=== PATIENT | male | born 1930 | race Caucasian/White ===

== ENCOUNTER 2017-07-14 06:58 | Inpatient (IN) | payer MEDICARE, OTHER ==
[~2017-07-14] VITALS: Ht 172.7 cm; Wt 67.9 kg
[~2017-07-14 06:58] MED LIST: AMLO-147 PO; CHOL2000 PO; CYAN50002 SL; FEBU80TA PO; LOSA25TA2 PO; METO-448 PO; TIMO10DR7 BOTH EYES
[2017-07-14] MEDS ORDERED: SOD CHLORIDE 0.9% 500 ML IV STA (07:22)
--- NOTE | 2017-07-14 07:29 | ERA ---
ER Documentation Chief Complaint Date/Time DATE: 07/14/17 TIME: 07:26 Chief Complaint gen weakness for the past 2 wks. recent falls with no obvious trauma. HPI Patient is an 87-year-old male who presents to the ER with gradual onset, constant, progressive generalized weakness and loss of balance for 3 weeks. He states that he has had difficulty walking due to loss of balance and has had multiple falls. He reports having a fall with occipital scalp injury 1 week ago. He denies neck pain, headache, vomiting. He denies leg weakness or incontinence. He denies fever or vomiting. He denies chest pain or shortness of breath. He denies dark stools. He reports eating and sleeping well, but reports depressed mood associated with decreased mobility. History is somewhat limited due to patient being a poor historian. Review of the medical record shows that the patient was admitted 2 years ago for similar symptoms in the setting of urinary tract infection. ROS All systems reviewed and are negative except as per history of present illness. Medications Home Meds Reported Medications Latanoprost (Latanoprost) 2.5 Ml Drops, 1 DROP BOTH EYES QHS, #1 BOTTLE 07/14/17 Brimonidine Tartrate* (Brimonidine Tartrate*) 0.2%-15ML Drop Opht, 1 DROP BOTH EYES Q8, #1 EA 07/14/17 Losartan Potassium* (Losartan Potassium*) 100 Mg Tablet, 100 MG PO DAILY, TAB 07/14/17 Cyanocobalamin* (Vitamin B12*) 500 Mcg Tab, 1000 MCG PO DAILY, TAB 07/14/17 Metoprolol Tartrate* (Lopressor*) 25 Mg Tab, 25 MG PO BID, #60 TAB 07/14/17 Amlodipine Besylate* (Amlodipine Besylate*) 10 Mg Tablet, 10 MG PO DAILY, #30 TAB 07/14/17 Febuxostat* (Uloric*) 80 Mg Tablet, 80 MG PO DAILY, TAB 07/14/17 Discontinued Reported Medications Bimatoprost* (Lumigan*) 0.01%-2.5 Ml Opht Drops, 1 DROP BOTH EYES HS, EA 07/14/17 Timolol Maleate* (Timolol Maleate* Ophth) 0.25%-15ml Opht, 1 DROP BOTH EYES BID , #1 EA 07/14/17 Aspirin* (Aspirin* Chew) 81 Mg Tab.chew, 81 MG PO DAILY, TAB.CHEW 07/14/17 Ezetimibe* (Zetia*) 10 Mg Tablet, 10 MG PO HS, TAB 07/14/17 Rosuvastatin Calcium* (Crestor*) 40 Mg Tablet, 40 MG PO QHS, #30 TAB 07/14/17 Lisinopril* (Lisinopril*) 40 Mg Tablet, 40 MG PO DAILY, #30 TAB 07/14/17 Timolol Maleate* (Timoptic*) 0.5%- 5ml Opht, 1 DROP BOTH EYES BID, EA 06/27/15 Cholecalciferol* (Vitamin D3*) 2,000 Unit Cap, 2000 UNIT PO DAILY, CAP 06/27/15 Cyanocobalamin* (Vitamin B-12* SL) 5,000 Mcg Tab.subl, 5000 MCG SL DAILY, TAB 06/27/15 Losartan Potassium* (Cozaar*) 25 Mg Tablet, PO DAILY, TAB 06/27/15 Metoprolol Tartrate* (Lopressor*) 25 Mg Tab, 25 MG PO DAILY, TAB 06/27/15 Febuxostat* (Uloric*) 80 Mg Tablet, 80 MG PO DAILY 11/05/11 Amlodipine Besylate* (Amlodipine Besylate*) 10 Mg Tablet, 10 MG PO DAILY 10/13/11 Allergies Allergies: Coded Allergies: No Known Allergy (Unverified , 06/27/15) PMhx/Soc Past medical history: Pancytopenia, 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), BPH, vitamin B12 deficiency Past surgical history: Left knee Social history: 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, no current use History of Surgery: Yes (L knee sx) Anesthesia Reaction: No Hx Neurological Disorder: No Hx Respiratory Disorders: No Hx Cardiac Disorders: Yes (HTN.) Hx Psychiatric Problems: No Hx Miscellaneous Medical Probl: Yes (HTN, gout, polyneuropathy, B12 deficiency , R eye retinal detachment) Hx Alcohol Use: Yes Hx Substance Use: No Hx Tobacco Use: Yes FmHx Noncontributory Physical Exam Vitals Vital Signs Date Time Temp Pulse Resp B/P Pulse Ox O2 Delivery O2 Flow Rate FiO2 07/14/17 10:08 113 18 116/67 99 Room Air 07/14/17 07:06 98.2 95 18 126/62 96 Physical Exam Const: Alert, no acute distress Head: Atraumatic Eyes: Normal Conjunctiva, Mild pallor, no icterus ENT: Normal External Ears, Nose and Mouth. Mucous membranes moist Neck: Full range of motion..~ No meningismus. No pain with range of motion Resp: Clear to auscultation bilaterally, No wheezes, no rales Cardio: Tachycardia, regular rhythm, no murmurs Abd: Soft, non tender, non distended. Skin: No petechiae or rashes Back: No midline or flank tenderness Ext: No cyanosis, or edema Neur: Awake and alert, Cranial nerves II through XII intact bilaterally, strength and sensation grossly intact in 4 extremities. No tremor, no asterixis. No nystagmus, no dysmetria. Psych: Normal Mood and Affect Result Diagram: 07/14/1771907/14/17719 Results 24 hrs Laboratory Tests Test 07/14/17 07:20 07/14/17 07:44 07/14/17 09:46 White Blood Count 2.710^3/ul Red Blood Count 1.9810^6/ul Hemoglobin 7.8g/dl Hematocrit 23.7% Mean Corpuscular Volume 119.7fl Mean Corpuscular Hemoglobin 39.4pg Mean Corpuscular Hemoglobin Concent 32.9g/dl Red Cell Distribution Width 17.4% Platelet Count 80047^3/UL Mean Platelet Volume 11.3fl Neutrophils % % Segmented Neutrophils % (Manual) 76% Lymphocytes % % Lymphocytes % (Manual) 16% Monocytes % % Monocytes % (Manual) 7% Eosinophils % % Eosinophils % (Manual) 1% Basophils % % Nucleated Red Blood Cells % 0.0/100WBC Neutrophils # 10^3/ul Absolute Lymphocytes (Manual) 0.410^3/ul Lymphocytes # 0.410^3/ul Monocytes # 0.210^3/ul Absolute Monocytes (Manual) 0.110^3/ul Eosinophils # 0.010^3/ul Basophils # 10^3/ul Nucleated Red Blood Cells # 10^3/ul Prothrombin Time 16.5Sec Prothrombin Time Ratio 1.3 INR International Normalized Ratio 1.32 Sodium Level 139mmol/L Potassium Level 4.2mmol/L Chloride Level 106mmol/L Carbon Dioxide Level 25mmol/L Anion Gap 12 Blood Urea Nitrogen 17mg/dl Creatinine 0.93mg/dl Glucose Level 124mg/dl Calcium Level 8.5mg/dl Total Bilirubin 0.9mg/dl Direct Bilirubin 0.00mg/dl Indirect Bilirubin 0.9mg/dl Aspartate Amino Transf (AST/SGOT) 34IU/L Alanine Aminotransferase (ALT/SGPT) 34IU/L Alkaline Phosphatase 90IU/L Troponin I 0.374ng/ml Total Protein 7.8g/dl Albumin 3.7g/dl Globulin 4.10g/dl Albumin/Globulin Ratio 0.90 Vitamin B12 Level 296pg/ml Urine Color YELLOW Urine Clarity SLIGHTLY CLOUDY Urine pH 5.0 Urine Specific [place] 1.020 Urine Ketones NEGATIVEmg/dL Urine Nitrite NEGATIVEmg/dL Urine Bilirubin NEGATIVEmg/dL Urine Urobilinogen 1+mg/dL Urine Leukocyte Esterase TRACELeu/ul Urine Microscopic RBC 7/HPF Urine Microscopic WBC 35/HPF Urine Mucus MODERATE/HPF Urine Hemoglobin NEGATIVEmg/dL Urine Glucose NEGATIVEmg/dL Urine Total Protein NEGATIVEmg/dl Lactic Acid Level 1.3mmol/L Current Medications Medications (Trade) Dose Ordered Sig/Isabella Route PRN Reason Start Time Stop Time Status Last Admin Dose Admin Sodium Chloride (NS) 500 ml @ 500 mls/hr Q1H STAT IV 07/14/17 07:22 07/14/17 08:21 DC 07/14/17 08:01 Diphtheria/ Tetanus/Acell Pertussis 0.5 ml 0.5 ml ONCE ONCE IM* 07/14/17 07:30 07/14/17 07:31 DC 07/14/17 08:02 Multivitamins/ Thiamine HCl/ Folic Acid/ Magnesium Sulfate/ Sodium Chloride (Mvi Adult/ Vitamin B1/Folic Acid/Magnesium Sulfate/NS) 1,015.2 ml @ 500 mls/ hr Q2H2M ONCE IV 07/14/17 07:30 07/14/17 09:31 DC 07/14/17 07:30 Aspirin 162 mg 162 mg ONCE ONCE PO 07/14/17 08:30 07/14/17 08:31 DC 07/14/17 08:30 Ceftriaxone Sodium 50 ml @ 100 mls/hr ONCE ONCE IVPB 07/14/17 09:30 07/14/17 09:59 DC 07/14/17 09:30 Sodium Chloride (NS) 250 ml @ 0 mls/hr Q0M ONCE IV 07/14/17 10:39 07/14/17 10:59 DC Ondansetron HCl (Zofran Inj) 4 mg ER BRIDGE PRN IV NAUSEA AND/OR VOMITING 07/14/17 11:00 07/15/17 10:59 Acetaminophen (Tylenol Tab) 650 mg ER BRIDGE PRN PO MILD PAIN/FEVER 07/14/17 11:00 07/15/17 10:59 Amlodipine Besylate (Norvasc) 10 mg DAILY PO 07/14/17 13:00 Brimonidine Tartrate (Alphagan 0.2%) 1 drop Q8 BOTH EYES 07/14/17 14:00 Cyanocobalamin (Vitamin B12) 1,000 mcg DAILY PO 07/15/17 09:00 Febuxostat (Uloric) 80 mg DAILY PO 07/14/17 13:00 Latanoprost (Xalatan) 1 drop QHS BOTH EYES 07/14/17 21:00 Losartan Potassium (Cozaar) 100 mg DAILY PO 07/14/17 13:00 Metoprolol Tartrate (Lopressor) 25 mg BID PO 07/14/17 13:00 Pregabalin (Lyrica) 50 mg BID PO 07/14/17 21:00 Lorazepam 0.25 mg 0.25 mg BID PRN PO ANXIETY 07/14/17 13:00 Sodium Chloride (NS) 1,000 ml @ 60 mls/hr [id number] IV 07/14/17 12:48 UNV IV Flush (NS 3 ml) 3 ml PER PROTOCOL IV 07/14/17 13:00 UNV Ondansetron HCl (Zofran Inj) 4 mg Q6H PRN IV NAUSEA AND/OR VOMITING 07/14/17 13:00 UNV Acetaminophen/ Hydrocodone Bitart ([place] (5/325)) 1 tab Q6H PRN PO MODERATE PAIN LEVEL 4-6 07/14/17 13:00 UNV Docusate Sodium (Colace) 100 mg Q12H PRN PO CONSTIPATION 07/14/17 13:00 UNV Zolpidem Tartrate (Ambien) 5 mg QHS PRN PO SLEEP 07/14/17 13:00 UNV Memantine (Namenda) 5 mg BID ONCE PO 07/14/17 21:00 07/14/17 21:01 UNV Procedures/MDM EKG read by me: Time 729, rate 113 Rhythm: Sinus tachycardia Clay: Normal Intervals: First-degree AV block ST-T waves: Biphasic T waves in inferior, anterior and lateral leads Ectopy: No Q-waves: No Impression: Sinus tachycardia with biphasic T waves are not clearly due to ischemia MDM: Patient is an 87-year-old male who presents to the ER with 3 weeks of generalized weakness associated with recent fall 1 week ago with minor head injury. Head CT is negative for intracranial bleed. Exam does not show obvious signs of other trauma. There is no cervical spine tenderness. Tetanus was updated. With regards to the patient's weakness, the patient has history of pancytopenia and has a slight drop in his hemoglobin from baseline despite being on Procrit. There is no report of dark or bloody stools. There is no reagan hypotension. The patient does have EKG changes that are suggestive of ischemia and has a slightly elevated troponin. Renal function is normal. The patient was given aspirin. He will be given a blood transfusion to improve coronary perfusion. He will be admitted for further cardiac workup. He was also found to have a urinary tract infection. There are no signs of sepsis. He was given a dose of antibiotics and IV fluids. Culture was sent. This was discussed with Dr. Avelar. Departure Diagnosis: Primary Impression: Generalized weakness Additional Impressions: Pancytopenia Non-ST elevation [place] (NSTEMI) Scalp abrasion Qualified Code: S00.01XA - Abrasion of scalp, initial encounter Urinary tract infection Qualified Code: N39.0 - Urinary tract infection without hematuria, site unspecified DEBORAH ZEPEDA MD Jul 14, 2017 07:29
[2017-07-14] MEDS ORDERED: DIPHTH/TET/ACEL PERTUSS (ADULT) 0.5 ML VIAL IM* ONE (07:30)
[2017-07-14] MEDS ORDERED: MULTIVITAMINS 10 ML, THIAMINE 100 MG, FOLIC ACID 1 MG, MAGNESIUM SULFATE 2 GM in SOD CH... IV ONE (07:30)
[2017-07-14 07:45] LABS: ABNORMAL IP MESSAGE 1; HEMATOCRIT 23.7 % (42.0-52.0); HEMOGLOBIN 7.8 g/dl (14.0-18.0); MEAN CORPUSCULAR HEMOGLOBIN 39.4 pg (29.0-33.0); MEAN CORPUSCULAR HGB CONC 32.9 g/dl (32.0-37.0); MEAN CORPUSCULAR VOLUME 119.7 fl (82.0-101.0); MEAN PLATELET VOLUME 11.3 fl (7.4-10.4); PLATELET COUNT 104 10^3/UL (140-415); POSITIVE DIFF @See below; RED BLOOD COUNT 1.98 10^6/ul (4.70-6.10); RED CELL DISTRIBUTION WIDTH 17.4 % (11.5-14.5); WHITE BLOOD COUNT 2.7 10^3/ul (4.8-10.8)
[2017-07-14 08:02] LABS: ALBUMIN 3.7 g/dl (3.3-4.9); ALBUMIN/GLOBULIN RATIO 0.9; BILIRUBIN,INDIRECT 0.9 mg/dl (0-1.1); BILIRUBIN,TOTAL 0.9 mg/dl (0.2-1.3); CALCIUM 8.5 mg/dl (8.4-10.2); CREATININE 0.93 mg/dl (0.61-1.24); POTASSIUM 4.2 mmol/L (3.5-5.1); TOTAL PROTEIN 7.8 g/dl (6.1-8.1)
[2017-07-14 08:17] LABS: TROPONIN-I 0.374 ng/ml (0.00-0.12)
--- NOTE | 2017-07-14 08:19 | RADRPT ---
PROCEDURE: CT Brain without contrast. CLINICAL INDICATION: Syncope. TECHNIQUE: A CT of the brain was performed on multidetector high-resolution CT scanner utilizing a xial sections from the skull base through the vertex without contrast. The scan was reviewed in sof t tissue brain and high frequency resolution bone algorithm windows. Images were reviewed on a high -resolution PACS workstation. One or more the following does reduction techniques were utilized: Aut omated exposure control, adjustment of the mA/ or kV according to patient's size, or use of iterativ e reconstruction technique. The exam CTDI = 44.11 mGy and the DLP = 720.23 mGy-cm. COMPARISON: Brain CT 06/30/2015. FINDINGS: There is moderate enlargement of ventricles which is disproportionate to mild sulcal enlargement wit hout significant interval change. This may represent central greater than peripheral volume loss ve rsus communicating hydrocephalus such as normal pressure hydrocephalus. There is no intracranial hem orrhage, mass effect or midline shift. No abnormal intra-axial or extra-axial fluid collections are seen. The blue/white matter differentiation is preserved. Partially empty sella is noted. There are moderate foci of hypoattenuation in the periventricular, deep, and subcortical white matte r, which are nonspecific in etiology but likely reflect chronic small vessel ischemic changes. Small lacunar infarcts are noted in bilateral hunt radiata, lentiform nuclei and right thalamus. There are moderate intracranial vascular calcifications consistent with atherosclerosis. The visualized pa ranasal sinuses are essentially clear. Right scleral buckling is noted likely related to prior retin al detachment treatment. Mild parietal scalp swelling is noted without underlying skull fracture. IMPRESSION: 1. No acute intracranial hemorrhage, transcortical infarction or mass effect. 2. Mild intracranial atherosclerosis and chronic small vessel ischemic changes. 3. 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 4. Partially empty sella. 5. Moderate ventriculomegaly which is disproportionate to mild sulcal enlargement without significa nt interval change. This may represent central greater than peripheral volume loss versus communica ting hydrocephalus such as normal pressure hydrocephalus. 6. Mild parietal scalp swelling is noted without underlying skull fracture. RPTAT: JJ .Thony Alvarado MD, MD Date Time Electronically viewed and signed by .Thony Alvarado MD, MD on 07/14/2017 08:18 .N/
[2017-07-14 08:21] LABS: INR 1.32; PROTIME 16.5 Sec (12.2-14.2); PT RATIO 1.3
--- NOTE | 2017-07-14 08:22 | RADRPT ---
PROCEDURE: XR Chest. CLINICAL INDICATION: 87-year-old male with syncope. TECHNIQUE: Single frontal view of the chest was obtained. COMPARISON: Chest x-ray 06/28/2015 12:01 p.m. FINDINGS: Monitoring electrodes project across the chest. There are degenerative osteophytes in the thoracic and upper lumbar spine. The left ventricle is mildly enlarged. The cardiomediastinal silhouette and hilar structures are normal. The pulmonary vasculature is normal. There is a left-sided aorta. The lungs are clear. The costophrenic angles are normal. IMPRESSION: 1. Atherosclerosis of the aortic arch. 2. Spondylosis of the thoracic spine. 3. Mild cardiomegaly. 4. Stable chest as compared to 06/28/2015 with no evidence of active cardiopulmonary disease. RPTAT:AAJJ Physician Shanti Date Time Electronically viewed and signed by Physician Shanti on 07/14/2017 08:21 BRAYDEN/
[2017-07-14] MEDS ORDERED: ASPIRIN 81 MG TAB PO ONE (08:30)
[2017-07-14 08:47] LABS: ADD UMIC YES; UR ASCORBIC ACID NEGATIVE (NEGATIVE); UR BILIRUBIN (Dip) NEGATIVE (NEGATIVE); UR BLOOD (Dip) NEGATIVE (NEGATIVE); UR CLARITY SLIGHTLY CLOUDY (CLEAR); UR COLOR YELLOW (YELLOW); UR GLUCOSE (Dip) NEGATIVE (NEGATIVE); UR KETONES (Dip) NEGATIVE (NEGATIVE); UR LEUKOCYTE ESTERASE (Dip) TRACE Leu/ul (NEGATIVE); UR MUCUS MODERATE /HPF (NONE SEEN); UR NITRITE (Dip) NEGATIVE (NEGATIVE); UR RBC 7 /HPF (0-5); UR TOTAL PROTEIN (Dip) NEGATIVE (NEGATIVE); UR UROBILINOGEN (Dip) 1+ mg/dL (NEGATIVE)
[2017-07-14] MEDS ORDERED: CEFTRIAXONE 1 GM/50 ML (PMX) 50 ML IVPB ONE (09:30)
[2017-07-14 09:58] LABS: EOSINOPHILS % (M) 1 % (0.0-7.0); LYMPHOCYTES # 0.4 10^3/ul (0.8-2.9); MONOCYTE # 0.2 10^3/ul (0.3-0.9); MONOCYTES % (M) 7 % (0-11)
[2017-07-14] MEDS ORDERED: SOD CHLORIDE 0.9% 250 ML IV ONE (10:39)
[2017-07-14] MEDS ORDERED: ONDANSETRON 4 MG INJ IV PRN ×2 (11:00→13:00)
[2017-07-14] MEDS ORDERED: ACETAMINOPHEN 325 MG TAB PO PRN (11:00)
[2017-07-14] MEDS ORDERED: ROSU40TA35 PO (11:43)
[2017-07-14] MEDS ORDERED: LISI40TA9 PO (11:43)
[2017-07-14] MEDS ORDERED: EZET10TA3 PO (11:43)
[2017-07-14] MEDS ORDERED: TIMO15DR15 BOTH EYES (11:44)
[2017-07-14] MEDS ORDERED: ASPI81TA3 PO (11:44)
[2017-07-14] MEDS ORDERED: BIMA2.5D BOTH EYES (11:45)
[2017-07-14] MEDS ORDERED: FEBU80TA PO (11:46)
[2017-07-14] MEDS ORDERED: METO-448 PO (11:47)
[2017-07-14] MEDS ORDERED: CYAN500T46 PO (11:47)
[2017-07-14] MEDS ORDERED: AMLO-147 PO (11:47)
[2017-07-14] MEDS ORDERED: LATA2.5D2 BOTH EYES (11:48)
[2017-07-14] MEDS ORDERED: BRIM15DR7 BOTH EYES (11:48)
[2017-07-14] MEDS ORDERED: LOSA100T7 PO (11:48)
[2017-07-14] MEDS: SOD CHLORIDE 0.9% 1,000 ML IV SCH ×2 (12:48→21:03)
--- NOTE | 2017-07-14 12:49 | RADRPT ---
PROCEDURE: XR Lumbar Spine. CLINICAL INDICATION: Status post fall. Back pain. TECHNIQUE: X-ray of the lumbar spine were performed including AP, lateral, and coned L5-S1 views w as performed. COMPARISON: No prior studies are available for comparison. FINDINGS: SEGMENTATION: There are 5 non-rib bearing lumbar vertebral bodies. LORDOSIS: Within normal limits. VERTEBRAL BODY HEIGHTS: There is an age indeterminate mild to moderate L1 vertebral body compression fracture. There is possible mild L2 vertebral body compression fracture which is also age indetermi ron. ALLIGNMENT: There is mild retrolisthesis of L3-L4. There is mild grade 1 anterolisthesis of 5 S1. DISCS: The discs are normal in height. OSSEOUS STRUCTURES: There is no destructive osseous lesion. There is moderate bilateral facet arthro phillip at L5-S1. SACRUM: The bilateral sacroiliac joints are intact. There are moderate aortic calcifications. IMPRESSION: Age indeterminate mild to moderate L1 and possible mild L2 vertebral body compression fractures. 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 Further findings as detailed above. RPTAT: PP .Natan Cassidy MD, Date Time Electronically viewed and signed by .Natan Cassidy MD, on 07/14/2017 12:49 .F/
[2017-07-14] MEDS ORDERED: ZOLPIDEM 5 MG TAB PO PRN (13:00)
[2017-07-14] MEDS ORDERED: LORAZEPAM 0.5 MG TAB PO PRN (13:00)
[2017-07-14] MEDS: LOSARTAN 50 MG TAB PO SCH (13:00)
[2017-07-14] MEDS ORDERED: AMLODIPINE 10 MG TAB PO SCH (13:00)
[2017-07-14] MEDS ORDERED: DOCUSATE SODIUM 100 MG CAP PO PRN (13:00)
[2017-07-14] MEDS: METOPROLOL 25 MG TAB PO SCH ×2 (13:00→21:01)
[2017-07-14] MEDS: FEBUXOSTAT 40 MG TABLET PO SCH (13:00)
[2017-07-14] MEDS ORDERED: NACL 0.9% 3 ML SYG IV SCH (13:00)
[2017-07-14] MEDS: BRIMONIDINE 0.2% 5 ML BTL BOTH EYES SCH ×2 (14:00→21:02)
--- NOTE | 2017-07-14 15:13 | HP ---
DATE OF ADMISSION: 07/14/2017 IDENTIFYING DATA: The patient is an 87-year-old male being admitted to the hospital after suffering a fall, now complaining of back pain and notable severe anemia. HISTORICAL EVENTS: The patient states it was yesterday morning when getting out of bed using his wa lker, he felt a bit unstable, lost his balance and fell, hitting his back and head. Importantly wit h his at bedside, she indicated as did he that he did not lose consciousness and no antecedent chest pain radiating neck, arm or jaw discomfort, cough, wheezing, vomiting, nausea, focal neurologi c signs prior to his fall. She was able to help him up and during the course of the day had increas ing back pain and noted some bleeding from his the scalp. Antecedent to this, his appetite has been reasonable. He has been generally weak, but this is not new over the last several months. There h as been no vomiting, diarrhea, he has been making less urine than normal per his without dysuri a, flank pain, fever or chills. PAST MEDICAL HISTORY: Includes gout, hyperlipidemia, hypertension, history of thrombocytopenia, roddy ropathy, a myeloproliferative disorder, having had prior vasectomy, mastoidectomy, left testicle res ected. FAMILY HISTORY: Positive for psychiatric illness. SOCIAL HISTORY: He is retired, former smoker. MEDICATIONS: 1. [place] 5/325 every 6 hours p.r.n. 2. Lorazepam 0.5 mg t.i.d. p.r.n. 3. Memantine 5 mg b.i.d. 4. Vitamin B12 1000 mcg per day. 5. Uloric 80 mg per day. 6. Tramadol 50 mg every 4 hours. 7. Lyrica 50 mg b.i.d. 8. Amlodipine 10 mg per day. 9. Aleve p.r.n. 10. Losartan 100. 11. Metoprolol 25. 12. Procrit 40,000 units 3 times per week. ALLERGIES: INCLUDE CELEBREX. PHYSICAL EXAMINATION: GENERAL: Elderly male, no acute distress. VITAL SIGNS: BP 120/82, pulse 70, heart rate was 96, respirations were 18, he was afebrile/ EYES: Extraocular muscles were full. NOSE, MOUTH AND THROAT: Normal. NECK: Supple without jugular venous distention, thyroid enlargement or adenopathy. LUNGS: Clear. HEART: Rhythm regular. Heart tones diminished. No murmur. No third or fourth sound. ABDOMEN: Nontender. The liver and spleen were not palpable. No masses or tenderness were noted. EXTREMITIES: No edema. Calves nontender. Peripheral pulses reduced. NEUROLOGIC: No lateralizing motor weakness. Oriented to person, place and time. SKIN: Exam revealed an abrasion involving the scalp. IMPRESSION: 1. Fall that seems mechanical. CAT scan is pending. 2. Low back pain, need to be sure there is not a traumatic related fracture. 3. Anemia. Will require transfusion of packed cells and follow up with hematology. 4. Labs revealed a slightly elevated troponin and mild ST changes. Cardiology to see. PLAN: Admit, including the above, will need monitored floor and PT, OT evaluation. Dictated By: CHERRY PEDROZA/EARNESTINE Conf#: [id number] DID#: [id number]
[2017-07-14 16:11] VITALS: TEMP 98
[2017-07-14 16:40] VITALS: PULSE 82
--- NOTE | 2017-07-14 17:00 | CONS ---
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 He has not had a recent bone marrow biopsy. Procrit trial is in progress and Hgb had risen from about 7 1/2 to 8.9 at his last office visit reflecting six weeks of Procrit. I agree with transfusion and would also continue EPO treatment. 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 He had previously declined bone marrow but since he is here now, perhaps he will accept a biopsy by Radiology since they can sedate him. It would be helpful to confirm the diagnosis is correct and that we are not missing an occult lymphoma or the like. I agree with plans to reduce the number of medications, especially antihypertensives since he is unsteady. I will continue to encourage nutrition and later more activity. Consultation Date/Type/Reason Admit Date/Time Jul 14, 2017 at 10:41 Date of Consultation: Jul 14, 2017 Type of Consultation: Hematology Reason for Consultation anemia Referring Provider: CHERRY GRIMM MD Hx of Present Illness 87 yo man known to me as an outpatient. 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 This year he had pancytopenia with normal B12 and folate, borderline iron and a low EPO assay. Atrial of iron was unsuccessful and he is now getting Procrit trial with slight rise of 1 gm/dl noted over a six week period. 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 Today he was admitted via the ER after falling at home. Note that Dr. Moreno had been reducing the amount of antihypertensives that he took. Pt has also been encouraged to eat better but family says that he eats poorly and is extremely inactive. The fall at home was likely due to slipping and pt denies LOC, chest pain or palpitations. Past Medical History Medical History: high cholesterol, hypertension, other (gout, malnutrition, neuropathy) Past Surgical History Past Surgical Hx: other (orchiectomy) Social History Smoking Status: Former smoker Exam/Review of Systems Vital Signs Vitals Vital Signs Date Time Temp Pulse Resp B/P Pulse Ox O2 Delivery O2 Flow Rate FiO2 07/14/17 16:40 82 07/14/17 16:11 98.0 16 124/60 99 Room Air Exam Constitutional: alert Head: lacerations (small laceration at posterior skull), normocephalic Eyes: nl conjunctiva, other (pallor) Neck: non-tender, supple Respiratory: clear to auscultation Cardiovascular: regular rate and rhythm Gastrointestinal: nl liver, spleen, soft Extremities: other (decreased muscle mass) Neurological: other (awake and conversant but poor memory unchanged from prior exams) Results Result Diagram: 07/14/1720 07/14/17 0720 Results 24 hrs Laboratory Tests Test 07/14/17 07:20 07/14/17 07:44 07/14/17 09:46 07/14/17 13:00 White Blood Count 2.7 #L Red Blood Count 1.98 L Hemoglobin 7.8 L Hematocrit 23.7 L Mean Corpuscular Volume 119.7 H Mean Corpuscular Hemoglobin 39.4 H Mean Corpuscular Hemoglobin Concent 32.9 Red Cell Distribution Width 17.4 H Platelet Count 104 L Mean Platelet Volume 11.3 #H Neutrophils % Segmented Neutrophils % (Manual) 76 Lymphocytes % Lymphocytes % (Manual) 16 Monocytes % Monocytes % (Manual) 7 Eosinophils % Eosinophils % (Manual) 1 Basophils % Nucleated Red Blood Cells % 0.0 Neutrophils # Absolute Lymphocytes (Manual) 0.4 L Lymphocytes # 0.4 L Monocytes # 0.2 L Absolute Monocytes (Manual) 0.1 L Eosinophils # 0.0 Basophils # Nucleated Red Blood Cells # Prothrombin Time 16.5 H Prothrombin Time Ratio 1.3 INR International Normalized Ratio 1.32 Sodium Level 139 Potassium Level 4.2 Chloride Level 106 Carbon Dioxide Level 25 Anion Gap 12 Blood Urea Nitrogen 17 Creatinine 0.93 Glucose Level 124 Calcium Level 8.5 Total Bilirubin 0.9 Direct Bilirubin 0.00 Indirect Bilirubin 0.9 Aspartate Amino Transf (AST/SGOT) 34 Alanine Aminotransferase (ALT/SGPT) 34 Alkaline Phosphatase 90 Troponin I 0.374 *H 0.358 *H Total Protein 7.8 Albumin 3.7 Globulin 4.10 H Albumin/Globulin Ratio 0.90 Vitamin B12 Level 296 Urine Color YELLOW Urine Clarity SLIGHTLY CLOUDY A Urine pH 5.0 Urine Specific [place] 1.020 Urine Ketones NEGATIVE Urine Nitrite NEGATIVE Urine Bilirubin NEGATIVE Urine Urobilinogen 1+ H Urine Leukocyte Esterase TRACE A Urine Microscopic RBC 7 H Urine Microscopic WBC 35 H Urine Mucus MODERATE Urine Hemoglobin NEGATIVE Urine Glucose NEGATIVE Urine Total Protein NEGATIVE Lactic Acid Level 1.3 Medications Medications Current Medications Amlodipine Besylate (Norvasc) 10 mg DAILY PO ; Start 07/14/17 at 13:00 Brimonidine Tartrate (Alphagan 0.2%) 1 drop Q8 BOTH EYES Last administered on 07/14/17 14:00; Admin Dose 1 DROP; Start 07/14/17 at 14:00 Cyanocobalamin (Vitamin B12) 1,000 mcg DAILY PO ; Start 07/15/17 at 09:00 Febuxostat (Uloric) 80 mg DAILY PO Last administered on 07/14/17 13:00; Admin Dose 80 MG; Start 07/14/17 at 13:00 Latanoprost (Xalatan) 1 drop QHS BOTH EYES ; Start 07/14/17 at 21:00 Losartan Potassium (Cozaar) 100 mg DAILY PO ; Start 07/14/17 at 13:00 Metoprolol Tartrate (Lopressor) 25 mg BID PO ; Start 07/14/17 at 13:00 Pregabalin (Lyrica) 50 mg BID PO ; Start 07/14/17 at 21:00 Lorazepam 0.25 mg 0.25 mg BID PRN PO ANXIETY; Start 07/14/17 at 13:00 Sodium Chloride (NS) 1,000 ml @ 60 mls/hr [id number] IV ; Start 07/14/17 at 12:48 Ondansetron HCl (Zofran Inj) 4 mg Q6H PRN IV NAUSEA AND/OR VOMITING; Start 07/14/17 at 13:00 Acetaminophen/ Hydrocodone Bitart ([place] (5/325)) 1 tab Q6H PRN PO MODERATE PAIN LEVEL 4-6; Start 07/14/17 at 13:00 Docusate Sodium (Colace) 100 mg Q12H PRN PO CONSTIPATION; Start 07/14/17 at 13: 00 Zolpidem Tartrate (Ambien) 5 mg QHS PRN PO SLEEP; Start 07/14/17 at 13:00 Memantine (Namenda) 5 mg BID PO ; Start 07/14/17 at 21:00 CHERRY JANE MD Jul 14, 2017 17:00
[2017-07-14 17:02] VITALS: Ht 172.7 cm; Wt 67.9 kg
[2017-07-14 20:00] VITALS: BP 118/56; RESP 20
[2017-07-14 20:30] VITALS: PULSE 80
[2017-07-14] MEDS: PREGABALIN 50 MG CAP PO SCH (21:00)
[2017-07-14] MEDS: MEMANTINE 5 MG TAB PO SCH (21:00)
[2017-07-14] MEDS: LATANOPROST 0.005% 2.5 ML OPH BOTH EYES SCH (21:02)
[2017-07-14 23:53] VITALS: BP 121/62; RESP 20
[2017-07-15] VITALS (11 sets, daily range): BP systolic 103–132; BP diastolic 50–72; PULSE 64–110; RESP 17–20
[2017-07-15] MEDS: SOD CHLORIDE 0.9% 1,000 ML IV SCH ×2 (05:28→22:08)
[2017-07-15] MEDS: BRIMONIDINE 0.2% 5 ML BTL BOTH EYES SCH ×3 (05:28→21:26)
[2017-07-15 07:16] LABS: EOSINOPHILS # 0.1 10^3/ul (0.0-0.5); EOSINOPHILS % 2.4 % (0.0-7.0); HEMATOCRIT 24.5 % (42.0-52.0); HEMOGLOBIN 7.7 g/dl (14.0-18.0); LYMPHOCYTES # 0.7 10^3/ul (0.8-2.9); LYMPHOCYTES % 22.7 % (15.0-51.0); MEAN CORPUSCULAR HEMOGLOBIN 36.7 pg (29.0-33.0); MEAN CORPUSCULAR HGB CONC 31.4 g/dl (32.0-37.0); MEAN CORPUSCULAR VOLUME 116.7 fl (82.0-101.0); MEAN PLATELET VOLUME 11.7 fl (7.4-10.4); MONOCYTE # 0.2 10^3/ul (0.3-0.9); MONOCYTES % 7.9 % (0.0-11.0); NEUTROPHIL # 1.9 10^3/ul (1.6-7.5); NEUTROPHILS % 66.7 % (39.0-77.0); NUCLEATED RED BLOOD CELLS% 0.7 /100WBC (0.0-0.0); PLATELET COUNT 100 10^3/UL (140-415); POSITIVE DIFF @See below; RED CELL DISTRIBUTION WIDTH 21.5 % (11.5-14.5); WHITE BLOOD COUNT 2.9 10^3/ul (4.8-10.8)
[2017-07-15 07:39] LABS: IRON 43 ug/dl (35-150)
[2017-07-15 07:41] LABS: CALCIUM 7.6 mg/dl (8.4-10.2); CREATININE 0.96 mg/dl (0.61-1.24); MAGNESIUM 2.2 mg/dl (1.7-2.5); POTASSIUM 3.9 mmol/L (3.5-5.1)
[2017-07-15 07:50] LABS: TOTAL IRON BINDING CAPACITY 211 ug/dl (241-421)
[2017-07-15 08:10] LABS: THYROID STIMULATING HORMONE 1.47 MIU/L (0.465-4.680)
--- NOTE | 2017-07-15 08:32 | CONS ---
Date/Time of Note Date/Time of Note DATE: 07/15/17 TIME: 08:26 Assessment/Plan Assessment/Plan Chief Complaint/Hosp Course 1. fall and gait abnormality , start PT and consider Acute Rehab Unit . 2. Pancytopenia . Hematology w/u is in progress 3. hypertension , BP is low 4. dilated ventricles on CT scan , r/o Normal pressure hydrocephalus , will get neurology consult . 5. lumbar spine fractures , ? age , will order MRI . Problems: Consultation Date/Type/Reason Admit Date/Time Jul 14, 2017 at 10:41 Initial Consult Date 07/14/17 Type of Consultation: Hematology Referring Provider: CHERRY GRIMM MD 24 HR Interval Summary Free Text/Dictation He is awake and alert today . He was admitted yesterday after he fell at home . Exam/Review of Systems Vital Signs Vitals Vital Signs Date Time Temp Pulse Resp B/P Pulse Ox O2 Delivery O2 Flow Rate FiO2 07/15/17 08:10 97.9 104 17 103/61 92 07/14/17 16:11 Room Air Intake and Output 07/14/17 07/14/17 07/15/17 15:00 23:00 07:00 Intake Total 660 ml Balance 660 ml Exam Constitutional: alert, frail, oriented Head: normocephalic ENMT: nl external ears & nose, nl lips & teeth, nl nasal mucosa & septum Respiratory: clear to auscultation, normal air movement Cardiovascular: regular rate and rhythm Gastrointestinal: non-tender, soft Musculoskeletal: nl extremities to inspection Results Result Diagram: 07/15/17 0612 07/15/17 0612 Results 24 hrs Laboratory Tests Test 07/14/17 09:46 07/14/17 13:00 07/15/17 06:12 Lactic Acid Level 1.3 Troponin I 0.358 *H White Blood Count 2.9 L Red Blood Count 2.10 L Hemoglobin 7.7 L Hematocrit 24.5 L Mean Corpuscular Volume 116.7 H Mean Corpuscular Hemoglobin 36.7 H Mean Corpuscular Hemoglobin Concent 31.4 L Red Cell Distribution Width 21.5 #H Platelet Count 100 L Mean Platelet Volume 11.7 H Neutrophils % 66.7 Lymphocytes % 22.7 Monocytes % 7.9 Eosinophils % 2.4 Basophils % 0.0 Nucleated Red Blood Cells % 0.7 H Neutrophils # 1.9 Lymphocytes # 0.7 L Monocytes # 0.2 L Eosinophils # 0.1 Basophils # 0.0 Nucleated Red Blood Cells # 0.0 Sodium Level 141 Potassium Level 3.9 Chloride Level 111 H Carbon Dioxide Level 23 Anion Gap 11 Blood Urea Nitrogen 17 Creatinine 0.96 Glucose Level 75 # Calcium Level 7.6 L Phosphorus Level 3.0 Magnesium Level 2.2 Iron Level 43 Total Iron Binding Capacity 211 L Percent Iron Saturation 20 L Ferritin 926.0 H Thyroid Stimulating Hormone (TSH) 1.470 Medications Medications Current Medications Brimonidine Tartrate (Alphagan 0.2%) 1 drop Q8 BOTH EYES Last administered on 07/15/17 05:28; Admin Dose 1 DROP; Start 07/14/17 at 14:00 Cyanocobalamin (Vitamin B12) 1,000 mcg DAILY PO ; Start 07/15/17 at 09:00 Febuxostat (Uloric) 80 mg DAILY PO Last administered on 07/14/17 13:00; Admin Dose 80 MG; Start 07/14/17 at 13:00 Latanoprost (Xalatan) 1 drop QHS BOTH EYES Last administered on 07/14/17 21:02 ; Admin Dose 1 DROP; Start 07/14/17 at 21:00 Losartan Potassium (Cozaar) 100 mg DAILY PO ; Start 07/14/17 at 13:00 Metoprolol Tartrate (Lopressor) 25 mg BID PO Last administered on 07/14/17 21: 01; Admin Dose 25 MG; Start 07/14/17 at 13:00 Pregabalin (Lyrica) 50 mg BID PO Last administered on 07/14/17 21:00; Admin Dose 50 MG; Start 07/14/17 at 21:00 Lorazepam 0.25 mg 0.25 mg BID PRN PO ANXIETY; Start 07/14/17 at 13:00 Sodium Chloride (NS) 1,000 ml @ 60 mls/hr [id number] IV Last administered on 07/14 21:03; Admin Dose 60 MLS/HR; Start 07/14/17 at 12:48 Ondansetron HCl (Zofran Inj) 4 mg Q6H PRN IV NAUSEA AND/OR VOMITING; Start 07/14/17 at 13:00 Acetaminophen/ Hydrocodone Bitart ([place] (5/325)) 1 tab Q6H PRN PO MODERATE PAIN LEVEL 4-6; Start 07/14/17 at 13:00 Docusate Sodium (Colace) 100 mg Q12H PRN PO CONSTIPATION; Start 07/14/17 at 13: 00 Zolpidem Tartrate (Ambien) 5 mg QHS PRN PO SLEEP; Start 07/14/17 at 13:00 Memantine (Namenda) 5 mg BID PO Last administered on 07/14/17t 21:00; Admin Dose 5 MG; Start 07/14/17 at 21:00 Epoetin Rosendo (Epogen (Oncology)) 40,000 units ONCE SC ; Start 07/15/17 at 10:00 ; Stop 07/15/17 at 10:01 YANDY MCDERMOTT MD Jul 15, 2017 08:32
[2017-07-15] MEDS: MEMANTINE 5 MG TAB PO SCH ×2 (08:53→21:25)
[2017-07-15] MEDS: PREGABALIN 50 MG CAP PO SCH ×2 (08:53→21:25)
[2017-07-15] MEDS: FEBUXOSTAT 40 MG TABLET PO SCH (08:53)
[2017-07-15] MEDS: CYANOCOBALAMIN 500 MCG TAB PO SCH (08:53)
--- NOTE | 2017-07-15 08:58 | CONS ---
Date/Time of Note Date/Time of Note DATE: 07/15/17 TIME: 08:51 Assessment/Plan Assessment/Plan Chief Complaint/Hosp Course Impression: 1) small trop leak- flat. has non specific twi. obatin echo. no current cp/sob/ hf. will treat medically given age, cognitive decline, pancytopenia. however could reconsider if clinical change. this was d/w family, and PCP Dr. Varma cont bb, tele add asa 81mg daily add statin check echo 2) fall/instability- no LOC, pt/ot eval 3) Pancytopenia- heme consulting, h/o MDS 4) Lumbar fxr s/p fall. Problems: Consultation Date/Type/Reason Admit Date/Time 07/14/2017 Date of Consultation: Jul 15, 2017 Type of Consultation: Cardiology Reason for Consultation Elevated troponin Referring Provider: YANDY MCDERMOTT MD Hx of Present Illness Mr moran is a 87 y.o. man without past cardiac hx. Pt is s/p fall yesterday Am. Reports he , lost his balance and fell, hitting his back and head. Importantly with his at bedside, she indicated as did he that he did not lose consciousness and no antecedent chest pain radiating neck, arm or jaw discomfort, cough, wheezing, vomiting, nausea, focal neurologic signs prior to his fall. She was able to help him up and during the course of the day had increasing back pain and noted some bleeding from his the scalp. Pt does have cognitive impairment, but answers all questions. denies any chest pain/sob at baseline, no pnd, rothopnea, edema. no palpitations or syncope. 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 Discussion held with son and patient who overall would prefer conservative care and avoid invasive testing/treatments unless absolutely necessary. all other systems negative Past Medical History Medical History: high cholesterol, hypertension, other (gout, malnutrition, neuropathy) Past Surgical History Past Surgical Hx: other (orchiectomy) Family History Significant Family History: other (no high risk cad) Social History Alcohol Use: none Smoking Status: Former smoker Drug Use: none Exam/Review of Systems Vital Signs Vitals Vital Signs Date Time Temp Pulse Resp B/P Pulse Ox O2 Delivery O2 Flow Rate FiO2 07/15/17 08:10 97.9 104 17 103/61 92 07/14/17 16:11 Room Air Intake and Output 07/14/17 07/14/17 07/15/17 15:00 23:00 07:00 Intake Total 660 ml Balance 660 ml Exam Constitutional: alert, other (answers questiosn, not fully oriented) Psych: nl mood/affect, no complaints Head: atraumatic, normocephalic Eyes: nl conjunctiva ENMT: nl nasal mucosa & septum Neck: non-tender, supple, No jvd Respiratory: clear to auscultation, normal air movement Cardiovascular: nl pulses, regular rate and rhythm, systolic murmur, No S3, No edema Gastrointestinal: non-tender, soft Musculoskeletal: nl extremities to inspection Extremities: normal pulses Neurological: ANTIC[employer]ING [employer] II-XII intact, nl mental status, nl speech Results Result Diagram: 07/15/1761107/15/17611 Results 24 hrs Laboratory Tests Test 07/14/17 09:46 07/14/17 13:00 07/15/17 06:12 Lactic Acid Level 1.3 Troponin I 0.358 *H White Blood Count 2.9 L Red Blood Count 2.10 L Hemoglobin 7.7 L Hematocrit 24.5 L Mean Corpuscular Volume 116.7 H Mean Corpuscular Hemoglobin 36.7 H Mean Corpuscular Hemoglobin Concent 31.4 L Red Cell Distribution Width 21.5 #H Platelet Count 100 L Mean Platelet Volume 11.7 H Neutrophils % 66.7 Lymphocytes % 22.7 Monocytes % 7.9 Eosinophils % 2.4 Basophils % 0.0 Nucleated Red Blood Cells % 0.7 H Neutrophils # 1.9 Lymphocytes # 0.7 L Monocytes # 0.2 L Eosinophils # 0.1 Basophils # 0.0 Nucleated Red Blood Cells # 0.0 Sodium Level 141 Potassium Level 3.9 Chloride Level 111 H Carbon Dioxide Level 23 Anion Gap 11 Blood Urea Nitrogen 17 Creatinine 0.96 Glucose Level 75 # Calcium Level 7.6 L Phosphorus Level 3.0 Magnesium Level 2.2 Iron Level 43 Total Iron Binding Capacity 211 L Percent Iron Saturation 20 L Ferritin 926.0 H Albumin 3.0 L Thyroid Stimulating Hormone (TSH) 1.470 Medications Medications Current Medications Brimonidine Tartrate (Alphagan 0.2%) 1 drop Q8 BOTH EYES Last administered on 07/15/17t 05:28; Admin Dose 1 DROP; Start 07/14/17 at 14:00 Cyanocobalamin (Vitamin B12) 1,000 mcg DAILY PO ; Start 07/15/17 at 09:00 Febuxostat (Uloric) 80 mg DAILY PO Last administered on 07/14/17 13:00; Admin Dose 80 MG; Start 07/14/17 at 13:00 Latanoprost (Xalatan) 1 drop QHS BOTH EYES Last administered on 07/14/17 21:02 ; Admin Dose 1 DROP; Start 07/14/17 at 21:00 Losartan Potassium (Cozaar) 100 mg DAILY PO ; Start 07/14/17 at 13:00 Metoprolol Tartrate (Lopressor) 25 mg BID PO Last administered on 07/14/17 21: 01; Admin Dose 25 MG; Start 07/14/17 at 13:00 Pregabalin (Lyrica) 50 mg BID PO Last administered on 07/14/17 21:00; Admin Dose 50 MG; Start 07/14/17 at 21:00 Lorazepam 0.25 mg 0.25 mg BID PRN PO ANXIETY; Start 07/14/17 at 13:00 Sodium Chloride (NS) 1,000 ml @ 60 mls/hr [id number] IV Last administered on 07/14 21:03; Admin Dose 60 MLS/HR; Start 07/14/17 at 12:48 Ondansetron HCl (Zofran Inj) 4 mg Q6H PRN IV NAUSEA AND/OR VOMITING; Start 07/14/17 at 13:00 Acetaminophen/ Hydrocodone Bitart ([place] (5/325)) 1 tab Q6H PRN PO MODERATE PAIN LEVEL 4-6; Start 07/14/17 at 13:00 Docusate Sodium (Colace) 100 mg Q12H PRN PO CONSTIPATION; Start 07/14/17 at 13: 00 Zolpidem Tartrate (Ambien) 5 mg QHS PRN PO SLEEP; Start 07/14/17 at 13:00 Memantine (Namenda) 5 mg BID PO Last administered on 07/14/17 21:00; Admin Dose 5 MG; Start 07/14/17 at 21:00 Epoetin Rosendo (Epogen (Oncology)) 40,000 units ONCE SC ; Start 07/15/17 at 10:00 ; Stop 07/15/17 at 10:01 Procedures Procedures EKG: NSR, lateral twi imaging reports reviewed in emr OLLIE FISCHER Jul 15, 2017 08:58
[2017-07-15] MEDS: METOPROLOL 25 MG TAB PO SCH ×2 (09:00→21:26)
[2017-07-15] MEDS: LOSARTAN 50 MG TAB PO SCH (09:00)
[2017-07-15] MEDS: ASPIRIN (EC) 81 MG TAB PO SCH (09:10)
[2017-07-15] MEDS: HYDROCODONE/APAP (5/325) TAB PO PRN (09:57)
[2017-07-15] MEDS ORDERED: EPOETIN 10000 UNITS/ML VIAL (ONCOLOGY) SC SCH (10:00)
[2017-07-15] MEDS: NEOMYC/POLYMYX/BACIT 30 GM OINT TOP SCH (11:00)
--- NOTE | 2017-07-15 14:38 | PN ---
Date/Time of Note Date/Time of Note DATE: 07/15/17 TIME: 14:32 Assessment/Plan VTE Prophylaxis VTE Prophylaxis Intervention: other (aspirin) Lines/Catheters IV [facility] Peripheral IV Urinary Cath still in place: No Assessment/Plan Chief Complaint/Hosp Course 87 yo man known to me as an outpatient. 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 This year he had pancytopenia with normal B12 and folate, borderline iron and a low EPO assay. Atrial of iron was unsuccessful and he is now getting Procrit trial with slight rise of 1 gm/dl noted over a six week period. 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 Today he was admitted via the ER after falling at home. Note that Dr. Moreno had been reducing the amount of antihypertensives that he took. Pt has also been encouraged to eat better but family says that he eats poorly and is extremely inactive. The fall at home was likely due to slipping and pt denies LOC, chest pain or palpitations. Troponin elevation noted and conservative medical treatment is advised. This is very reasonable given age and poor performance status. Hgb is stable although he likely has had IV dilution that explains the lack of rise. No clinical bleeding. I would recheck CBC in the morning and give one more unit of RBC if Hgb is still low. Procrit given today as part of previously started trial. Once he is felt to be stable, I would suggest bone marrow biopsy. Problems: Subjective 24 Hr Interval Summary Free Text/Dictation Pt tire3d but stable. Denies chest pain, palpitations, dyspnea. Exam/Review of Systems Vital Signs Vitals Vital Signs Date Time Temp Pulse Resp B/P Pulse Ox O2 Delivery O2 Flow Rate FiO2 07/15/17 12:13 98.4 66 17 116/53 90 07/14/17 16:11 Room Air Intake and Output 07/14/17 07/14/17 07/15/17 15:00 23:00 07:00 Intake Total 660 ml Balance 660 ml Exam Constitutional: alert Head: normocephalic Eyes: nl conjunctiva, other (pallor) Neck: non-tender Respiratory: clear to auscultation Cardiovascular: regular rate and rhythm Gastrointestinal: non-tender, soft Results Result Diagram: 10/10/17 0612 10/10/17 0612 Results 24 hrs Laboratory Tests Test 07/15/17 06:12 White Blood Count 2.9 L Red Blood Count 2.10 L Hemoglobin 7.7 L Hematocrit 24.5 L Mean Corpuscular Volume 116.7 H Mean Corpuscular Hemoglobin 36.7 H Mean Corpuscular Hemoglobin Concent 31.4 L Red Cell Distribution Width 21.5 #H Platelet Count 100 L Mean Platelet Volume 11.7 H Neutrophils % 66.7 Lymphocytes % 22.7 Monocytes % 7.9 Eosinophils % 2.4 Basophils % 0.0 Nucleated Red Blood Cells % 0.7 H Neutrophils # 1.9 Lymphocytes # 0.7 L Monocytes # 0.2 L Eosinophils # 0.1 Basophils # 0.0 Nucleated Red Blood Cells # 0.0 Sodium Level 141 Potassium Level 3.9 Chloride Level 111 H Carbon Dioxide Level 23 Anion Gap 11 Blood Urea Nitrogen 17 Creatinine 0.96 Glucose Level 75 # Calcium Level 7.6 L Phosphorus Level 3.0 Magnesium Level 2.2 Iron Level 43 Total Iron Binding Capacity 211 L Percent Iron Saturation 20 L Ferritin 926.0 H Albumin 3.0 L Thyroid Stimulating Hormone (TSH) 1.470 Medications Medications Current Medications Brimonidine Tartrate (Alphagan 0.2%) 1 drop Q8 BOTH EYES Last administered on 07/15/17 05:28; Admin Dose 1 DROP; Start 07/14/17 at 14:00 Cyanocobalamin (Vitamin B12) 1,000 mcg DAILY PO Last administered on 08:53; Admin Dose 1,000 MCG; Start 07/15/17 at 09:00 Febuxostat (Uloric) 80 mg DAILY PO Last administered on 07/15/17 08:53; Admin Dose 80 MG; Start 07/14/17 at 13:00 Latanoprost (Xalatan) 1 drop QHS BOTH EYES Last administered on 07/14/17 21:02 ; Admin Dose 1 DROP; Start 07/14/17 at 21:00 Losartan Potassium (Cozaar) 100 mg DAILY PO ; Start 07/14/17 at 13:00 Metoprolol Tartrate (Lopressor) 25 mg BID PO Last administered on 07/14/17 21: 01; Admin Dose 25 MG; Start 07/14/17 at 13:00 Pregabalin (Lyrica) 50 mg BID PO Last administered on 07/15/17 08:53; Admin Dose 50 MG; Start 07/14/17 at 21:00 Lorazepam 0.25 mg 0.25 mg BID PRN PO ANXIETY; Start 07/14/17 at 13:00 Sodium Chloride (NS) 1,000 ml @ 60 mls/hr [id number] IV Last administered on 07/14 21:03; Admin Dose 60 MLS/HR; Start 07/14/17 at 12:48 Ondansetron HCl (Zofran Inj) 4 mg Q6H PRN IV NAUSEA AND/OR VOMITING; Start 07/14/17 at 13:00 Acetaminophen/ Hydrocodone Bitart ([place] (5/325)) 1 tab Q6H PRN PO MODERATE PAIN LEVEL 4-6 Last administered on 07/15/17 09:57; Admin Dose 1 TAB; Start 07/14/17 at 13:00 Docusate Sodium (Colace) 100 mg Q12H PRN PO CONSTIPATION; Start 07/14/17 at 13: 00 Zolpidem Tartrate (Ambien) 5 mg QHS PRN PO SLEEP; Start 07/14/17 at 13:00 Memantine (Namenda) 5 mg BID PO Last administered on 07/15/17 08:53; Admin Dose 5 MG; Start 07/14/17 at 21:00 Aspirin (Halfprin) 81 mg DAILY PO Last administered on 07/15/17 09:10; Admin Dose 81 MG; Start 07/15/17 at 09:00 Atorvastatin Calcium (Lipitor) 10 mg HS PO ; Start 07/15/17 at 21:00 Neomycin/ Polymyxin/ Bacitracin (Neosporin Topical Oint) 1 applic DAILY TOP ; Start 07/15/17 at 11:00 CHERRY JANE MD Jul 15, 2017 14:38
[2017-07-15] MEDS: ATORVASTATIN 10 MG TAB PO SCH (21:25)
[2017-07-15] MEDS: LATANOPROST 0.005% 2.5 ML OPH BOTH EYES SCH (21:25)
[2017-07-16] VITALS (11 sets, daily range): BP systolic 99–126; BP diastolic 56–62; PULSE 64–100; RESP 16–18
[2017-07-16] MEDS: SOD CHLORIDE 0.9% 1,000 ML IV SCH ×2 (02:00→14:40)
[2017-07-16] MEDS: BRIMONIDINE 0.2% 5 ML BTL BOTH EYES SCH ×3 (06:18→21:21)
[2017-07-16 07:24] LABS: BASOPHILS % 0.4 % (0.0-2.0); EOSINOPHILS # 0.1 10^3/ul (0.0-0.5); HEMATOCRIT 22.8 % (42.0-52.0); HEMOGLOBIN 7.5 g/dl (14.0-18.0); LYMPHOCYTES # 0.7 10^3/ul (0.8-2.9); LYMPHOCYTES % 27.7 % (15.0-51.0); MEAN CORPUSCULAR HEMOGLOBIN 38.1 pg (29.0-33.0); MEAN CORPUSCULAR HGB CONC 32.9 g/dl (32.0-37.0); MEAN CORPUSCULAR VOLUME 115.7 fl (82.0-101.0); MEAN PLATELET VOLUME 11.5 fl (7.4-10.4); MONOCYTE # 0.2 10^3/ul (0.3-0.9); MONOCYTES % 6.8 % (0.0-11.0); NEUTROPHIL # 1.6 10^3/ul (1.6-7.5); NEUTROPHILS % 62.3 % (39.0-77.0); PLATELET COUNT 101 10^3/UL (140-415); POSITIVE DIFF @See below; RED BLOOD COUNT 1.97 10^6/ul (4.70-6.10); RED CELL DISTRIBUTION WIDTH 19.9 % (11.5-14.5); WHITE BLOOD COUNT 2.5 10^3/ul (4.8-10.8)
[2017-07-16 07:26] LABS: RETICULOCYTE COUNT % 4.5 % (0.5-1.5)
[2017-07-16 07:43] LABS: ALBUMIN 2.9 g/dl (3.3-4.9); ALBUMIN/GLOBULIN RATIO 0.8; BILIRUBIN,INDIRECT 0.7 mg/dl (0-1.1); BILIRUBIN,TOTAL 0.7 mg/dl (0.2-1.3); CALCIUM 7.5 mg/dl (8.4-10.2); CREATININE 0.87 mg/dl (0.61-1.24); POTASSIUM 3.8 mmol/L (3.5-5.1); TOTAL PROTEIN 6.5 g/dl (6.1-8.1)
--- NOTE | 2017-07-16 08:23 | PN ---
Date/Time of Note Date/Time of Note DATE: 07/16/17 TIME: 08:17 Assessment/Plan VTE Prophylaxis VTE Prophylaxis Intervention: ambulation Lines/Catheters IV [facility] [place] Urinary Cath still in place: No Assessment/Plan Chief Complaint/Hosp Course 1. fall and gait abnormality , start PT and consider Acute Rehab Unit . 2. Pancytopenia . Hematology w/u is in progress , his H&H is drifting down. He may need a blood transfusion. Hematology is recommending a bone marrow aspirate and biopsy. I will discuss this with patient. 3. hypertension , BP is low , I will DC amlodipine. 4. dilated ventricles on CT scan , r/o Normal pressure hydrocephalus , will get neurology consult . 5. lumbar spine fractures , ? age , will order MRI . Problems: Subjective 24 Hr Interval Summary Free Text/Dictation The patient is awake and responsive. He is having difficulty walking. He needs a bedside commode. He was seen earlier today by hematology Dr. Minor. Constitutional: no complaints, poor po Respiratory: no complaints Cardiovascular: no complaints Gastrointestinal: no complaints Genitourinary: no complaints Exam/Review of Systems Vital Signs Vitals Vital Signs Date Time Temp Pulse Resp B/P Pulse Ox O2 Delivery O2 Flow Rate FiO2 07/16/17 07:45 98.3 86 17 100/61 91 07/14/17 16:11 Room Air Intake and Output 07/15/17 07/15/17 07/16/17 14:59 22:59 06:59 Intake Total 850 ml 600 ml Balance 850 ml 600 ml Exam Constitutional: alert, frail, oriented Respiratory: clear to auscultation Cardiovascular: regular rate and rhythm Gastrointestinal: soft Musculoskeletal: nl extremities to inspection Results Result Diagram: 07/16/17 0610 07/16/17 0610 Results 24 hrs Laboratory Tests Test 07/16/17 06:10 07/16/17 06:13 White Blood Count 2.5 L Red Blood Count 1.97 L Hemoglobin 7.5 L Hematocrit 22.8 L Mean Corpuscular Volume 115.7 H Mean Corpuscular Hemoglobin 38.1 H Mean Corpuscular Hemoglobin Concent 32.9 Red Cell Distribution Width 19.9 H Platelet Count 101 L Mean Platelet Volume 11.5 H Neutrophils % 62.3 Lymphocytes % 27.7 Monocytes % 6.8 Eosinophils % 2.0 Basophils % 0.4 Nucleated Red Blood Cells % 0.0 Neutrophils # 1.6 Lymphocytes # 0.7 L Monocytes # 0.2 L Eosinophils # 0.1 Basophils # 0.0 Nucleated Red Blood Cells # 0.0 Absolute Reticulocyte Count 0.089 Percent Reticulocyte Count 4.5 H Sodium Level 138 Potassium Level 3.8 Chloride Level 111 H Carbon Dioxide Level 22 Anion Gap 9 Blood Urea Nitrogen 17 Creatinine 0.87 Glucose Level 88 Calcium Level 7.5 L Total Bilirubin 0.7 Direct Bilirubin 0.00 Indirect Bilirubin 0.7 Aspartate Amino Transf (AST/SGOT) 48 H Alanine Aminotransferase (ALT/SGPT) 46 Alkaline Phosphatase 96 Total Protein 6.5 # Albumin 2.9 L Globulin 3.60 H Albumin/Globulin Ratio 0.80 Lab Scanned Report BLOOD TRANSFUSION Medications Medications Current Medications Brimonidine Tartrate (Alphagan 0.2%) 1 drop Q8 BOTH EYES Last administered on 07/16/17 06:18; Admin Dose 1 DROP; Start 07/14/17 at 14:00 Cyanocobalamin (Vitamin B12) 1,000 mcg DAILY PO Last administered on 08:53; Admin Dose 1,000 MCG; Start 07/15/17 at 09:00 Febuxostat (Uloric) 80 mg DAILY PO Last administered on 07/15/17 08:53; Admin Dose 80 MG; Start 07/14/17 at 13:00 Latanoprost (Xalatan) 1 drop QHS BOTH EYES Last administered on 07/15/17 21: 25; Admin Dose 1 DROP; Start 07/14/17 at 21:00 Losartan Potassium (Cozaar) 100 mg DAILY PO ; Start 07/14/17 at 13:00 Metoprolol Tartrate (Lopressor) 25 mg BID PO Last administered on 07/15/17 21 :26; Admin Dose 25 MG; Start 07/14/17 at 13:00 Pregabalin (Lyrica) 50 mg BID PO Last administered on 07/15/17 21:25; Admin Dose 50 MG; Start 07/14/17 at 21:00 Lorazepam 0.25 mg 0.25 mg BID PRN PO ANXIETY; Start 07/14/17 at 13:00 Sodium Chloride (NS) 1,000 ml @ 60 mls/hr [id number] IV Last administered on 02:00; Admin Dose 60 MLS/HR; Start 07/14/17 at 12:48 Ondansetron HCl (Zofran Inj) 4 mg Q6H PRN IV NAUSEA AND/OR VOMITING; Start 07/14/17 at 13:00 Acetaminophen/ Hydrocodone Bitart ([place] (5/325)) 1 tab Q6H PRN PO MODERATE PAIN LEVEL 4-6 Last administered on 07/15/17 09:57; Admin Dose 1 TAB; Start 07/14/17 at 13:00 Docusate Sodium (Colace) 100 mg Q12H PRN PO CONSTIPATION; Start 07/14/17 at 13: 00 Zolpidem Tartrate (Ambien) 5 mg QHS PRN PO SLEEP; Start 07/14/17 at 13:00 Memantine (Namenda) 5 mg BID PO Last administered on 07/15/17 21:25; Admin Dose 5 MG; Start 07/14/17 at 21:00 Aspirin (Halfprin) 81 mg DAILY PO Last administered on 07/15/17 09:10; Admin Dose 81 MG; Start 07/15/17 at 09:00 Atorvastatin Calcium (Lipitor) 10 mg HS PO Last administered on 07/15/17 21: 25; Admin Dose 10 MG; Start 07/15/17 at 21:00 Neomycin/ Polymyxin/ Bacitracin (Neosporin Topical Oint) 1 applic DAILY TOP ; Start 07/15/17 at 11:00 YANDY MCDERMOTT MD Jul 16, 2017 08:23
--- NOTE | 2017-07-16 08:40 | PN ---
DATE: 07/16/2017 SUBJECTIVE: The patient states that he is feeling well at this time. Does complain of weakness. N ot complaining of significant back pain at this time. The patient states his appetite is good, but has poor intake. He denies abdominal pain, nausea or v omiting. OBJECTIVE: GENERAL: The patient is a well-developed elderly male in no acute distress. VITAL SIGNS: Temp is 98.4, pulse 108, respirations 16, blood pressure 100/56 and pulse oximetry is 94% on room air. SKIN: Pale with some scattered ecchymoses. No rashes. HEENT: Normocephalic. No evidence of trauma. Pupils equal, round, react to light and accommodatio n. There is no scleral icterus. Oral mucosa is moist without lesions. Tongue is well papillated. There is no gingival hyperplasia. NECK: Supple, no jugular venous distention or thyroid enlargement. CHEST: Clear to auscultation and percussion. No rhonchi, wheezes, rales or rubs. No pain on percu ssion of the spine, sternum, clavicles or ribs. HEART: Sinus tachycardia. No S3, S4 or murmurs. ABDOMEN: Soft. There are no masses or ascites. No splenomegaly. EXTREMITIES: Good range of motion, no clubbing, edema or cyanosis. No palpable cords or Homans sig n. LABORATORY: White count today is 2500 with an absolute neutrophil count of 1600, hemoglobin was 7.5 , hematocrit 22.8, MCV 115.7 and platelet count 101,000 with an MPV of 11.5. There is an absolute r eticulocyte count of 89,000, reticulocyte percentage is 4.5. The patient's iron is 43, iron binding capacity 211, percent saturation is 20 with a ferritin of 926. B12 level was 296. Globulin level was 4.1. 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 I obtained a bone marrow with the patient and his son. The patient is reluctant. I have explained, however, that the reason for doing a bone marrow is to determine whether the patient has any chromo somal abnormalities which would make him more likely to respond to agent such as lenalidomide. It is also interesting to note that the patient's vitamin B12 level is 296, although normal is near the lower limits. One would think that if the patient has myelodysplastic syndrome with minimal chelle thropoiesis that there would be an elevated vitamin B12 level. At this time, I will obtain a folic acid level as well as homocysteine and methylmalonic acid. Also obtain parietal cell antibodies and factor blocking antibodies. The patient also has an elevated globulin of 4.1. We will obtain a serum protein electrophoresis, i mmunofixation and quantitative immunoglobulins. Dictated By: FRED NUNEZ MD, SR/EARNESTINE Conf#: [id number] DID#: [id number]
[2017-07-16] MEDS: LOSARTAN 50 MG TAB PO SCH (09:00)
[2017-07-16] MEDS: METOPROLOL 25 MG TAB PO SCH ×2 (09:00→21:20)
[2017-07-16] MEDS: ASPIRIN (EC) 81 MG TAB PO SCH (09:56)
[2017-07-16] MEDS: CYANOCOBALAMIN 500 MCG TAB PO SCH (09:56)
[2017-07-16] MEDS: MEMANTINE 5 MG TAB PO SCH ×2 (09:56→21:20)
[2017-07-16] MEDS: FEBUXOSTAT 40 MG TABLET PO SCH (09:57)
[2017-07-16] MEDS: NEOMYC/POLYMYX/BACIT 30 GM OINT TOP SCH (09:58)
[2017-07-16] MEDS: PREGABALIN 50 MG CAP PO SCH ×2 (10:00→21:20)
--- NOTE | 2017-07-16 10:06 | RADRPT ---
Echocardiogram Report Patient Name: CHING MORRIS Gender: Male Date: 1930 Study Date: 15-Jul-2017 Cumulative Effects Analyst: GLADIS Location: I Ref. Physician: VIN FISCHER Quality: Good Procedures: Transthoracic echocardiogram with complete 2D, M-Mode, and doppler examination. Indications: Elevated Troponin. 2D/M Mode Doppler Measurement Value Normal Ranges Measurement Value Normal Ranges AoR Diam MM 3.4 cm OLAF Vmax 2.1 cm2 ACS MM 2.2 cm OLAF VTI 2.1 cm2 LA/Ao MM 1.1 AV Peak Manuel 1.2 m/sec LA Dimen MM 3.8 cm AV Peak PG 5.9 mmHg LVIDd 2D 4.6 3.5 - 5.6 cm LVOT Peak Manuel 0.8 m/sec LVIDs 2D 3.1 2.1 - 4.1 cm LVOT Peak PG 2.5 mmHg LVPWd 2D 1.0 0.6 - 1.1 cm MV E Peak Manuel 0.8 m/sec IVSd 2D 1.1 0.6 - 1.1 cm MV A Peak Manuel 1.0 m/sec EDV 2D 95.3 cm3 MV E/A 0.9 ESV 2D 28.7 cm3 MV Decel Time 145 msec LVOT Diam 2.0 cm MV Decel [place] 6 MV E/A 0.9 TR Peak Manuel 2.4 m/sec TR Peak PG 24.5 mmHg Findings Left Ventricle: Normal left ventricular systolic function. Normal left ventricular cavity size. Normal left ventricular wall thickness. Mild hypertrophy of the basal septum. Ejection fraction is visually estimated at 61 %. Tissue Doppler/Mitral Doppler indices are consistent with impaired relaxation (Stage I diastolic dysfunction). Right Ventricle: Normal right ventricular size. Normal right ventricular systolic function. Left Atrium: The left atrium is normal in size. Right Atrium: The right atrium is normal in size. Mitral Valve: Normal appearance of the mitral valve. Moderate mitral valve regurgitation. Aortic Valve: No significant aortic stenosis or insufficiency. Aortic sclerosis without stenosis. Trileaflet aortic valve. Tricuspid Valve: Right ventricular systolic pressure is consistent with mild pulmonary hypertension. Estimated peak PA systolic pressure 35 mmHg. Pulmonic Valve: There is trace pulmonic regurgitation. Pericardium: Normal pericardium with no significant pericardial effusion. Aorta: Normal aortic root. IVC: Normal size and normal respiratory collapse consistent with normal right atrial pressure. Conclusions Normal left ventricular systolic function. Normal left ventricular cavity size. Normal left ventricular wall thickness. Mild hypertrophy of the basal septum. Ejection fraction is visually estimated at 61 %. Tissue Doppler/Mitral Doppler indices are consistent with impaired relaxation (Stage I diastolic dysfunction). Normal right ventricular size. Normal right ventricular systolic function. The left atrium is normal in size. No significant aortic stenosis or insufficiency. Aortic sclerosis without stenosis. Trileaflet aortic valve. Normal appearance of the mitral valve. Moderate mitral valve regurgitation. Right ventricular systolic pressure is consistent with mild pulmonary hypertension. Estimated peak PA systolic pressure 35 mmHg. Normal size and normal respiratory collapse consistent with normal right atrial pressure. Normal aortic root. No Vegetation, masses, or thrombi seen. Electronically Signed By: Vin Fischer 16-Jul-2017 10:04:51 -0700 Patient Name: CHING MORRIS Study Date: 15-Jul-2017 [id number]
--- NOTE | 2017-07-16 11:05 | CONS ---
Date/Time of Note Date/Time of Note DATE: 07/16/17 TIME: 11:01 Assessment/Plan Assessment/Plan Chief Complaint/Hosp Course 87 yo male with history of anemia, compression fx Lumbar Spine, bedbound over [address] suggestive of dilated ventricles, sulcal enlargement without significant interval change Clinical he has no other signs suggestive of NPH. MRI L Spine ordered to evaluate compression fractures Continue medical work up and transfusion for anemia would suggest further outpatient neurology fu to assess Problems: Consultation Date/Type/Reason Admit Date/Time 07/16/17 Date of Consultation: Jul 16, 2017 Type of Consultation: Neurology Reason for Consultation eval for NPH Referring Provider: YANDY MCDERMOTT MD Hx of Present Illness 87 yo male with history of Gout, HTN, HLD, thrombocytopenia, anemia, neuropathy , lumbar compression fx, bed bound over 6 months with mild cognitive decline. CTH was done which shows enlarged ventricles which are appropriate to his degree of atrophy. He denies any other sx associated with NPH, no hx of magnetic gait or urinary incontinence. An MRI L Spine was ordered to eval degree of lumbar fx. Overall he c/o generalized weakness. Constitutional: no complaints, poor po Respiratory: no complaints Cardiovascular: no complaints Gastrointestinal: no complaints Genitourinary: no complaints Past Medical History Medical History: high cholesterol, hypertension, other (gout, malnutrition, neuropathy) Past Surgical History Past Surgical Hx: other (orchiectomy) Social History Smoking Status: Former smoker Exam/Review of Systems Vital Signs Vitals Vital Signs Date Time Temp Pulse Resp B/P Pulse Ox O2 Delivery O2 Flow Rate FiO2 07/16/17 08:21 77 07/16/17 07:45 98.3 17 100/61 91 07/14/17 16:11 Room Air Intake and Output 07/15/17 07/15/17 07/16/17 15:00 23:00 07:00 Intake Total 850 ml 600 ml Balance 850 ml 600 ml Exam Constitutional: alert, oriented, well developed Neurological: INDUSTRIAL ROOF PLUMBER II-XII intact, DTR's symmetric, nl mental status, nl speech, nl strength Results Result Diagram: 07/16/17 0610 07/16/17 0610 Results 24 hrs Laboratory Tests Test 07/16/17 06:10 07/16/17 06:13 White Blood Count 2.5 L Red Blood Count 1.97 L Hemoglobin 7.5 L Hematocrit 22.8 L Mean Corpuscular Volume 115.7 H Mean Corpuscular Hemoglobin 38.1 H Mean Corpuscular Hemoglobin Concent 32.9 Red Cell Distribution Width 19.9 H Platelet Count 101 L Mean Platelet Volume 11.5 H Neutrophils % 62.3 Lymphocytes % 27.7 Monocytes % 6.8 Eosinophils % 2.0 Basophils % 0.4 Nucleated Red Blood Cells % 0.0 Neutrophils # 1.6 Lymphocytes # 0.7 L Monocytes # 0.2 L Eosinophils # 0.1 Basophils # 0.0 Nucleated Red Blood Cells # 0.0 Absolute Reticulocyte Count 0.089 Percent Reticulocyte Count 4.5 H Sodium Level 138 Potassium Level 3.8 Chloride Level 111 H Carbon Dioxide Level 22 Anion Gap 9 Blood Urea Nitrogen 17 Creatinine 0.87 Glucose Level 88 Calcium Level 7.5 L Total Bilirubin 0.7 Direct Bilirubin 0.00 Indirect Bilirubin 0.7 Aspartate Amino Transf (AST/SGOT) 48 H Alanine Aminotransferase (ALT/SGPT) 46 Alkaline Phosphatase 96 Total Protein 6.5 # Albumin 2.9 L Globulin 3.60 H Albumin/Globulin Ratio 0.80 Lab Scanned Report BLOOD TRANSFUSION Medications Medications Current Medications Brimonidine Tartrate (Alphagan 0.2%) 1 drop Q8 BOTH EYES Last administered on 07/16/17 06:18; Admin Dose 1 DROP; Start 07/14/17 at 14:00 Cyanocobalamin (Vitamin B12) 1,000 mcg DAILY PO Last administered on 09:56; Admin Dose 1,000 MCG; Start 07/15/17 at 09:00 Febuxostat (Uloric) 80 mg DAILY PO Last administered on 07/16/17 09:57; Admin Dose 80 MG; Start 07/14/17 at 13:00 Latanoprost (Xalatan) 1 drop QHS BOTH EYES Last administered on 07/15/17 21: 25; Admin Dose 1 DROP; Start 07/14/17 at 21:00 Metoprolol Tartrate (Lopressor) 25 mg BID PO Last administered on 07/15/17 21 :26; Admin Dose 25 MG; Start 07/14/17 at 13:00 Pregabalin (Lyrica) 50 mg BID PO Last administered on 07/16/17 10:00; Admin Dose 50 MG; Start 07/14/17 at 21:00 Lorazepam 0.25 mg 0.25 mg BID PRN PO ANXIETY; Start 07/14/17 at 13:00 Sodium Chloride (NS) 1,000 ml @ 60 mls/hr [id number] IV Last administered on 02:00; Admin Dose 60 MLS/HR; Start 07/14/17 at 12:48 Ondansetron HCl (Zofran Inj) 4 mg Q6H PRN IV NAUSEA AND/OR VOMITING; Start 07/14/17 at 13:00 Acetaminophen/ Hydrocodone Bitart ([place] (5/325)) 1 tab Q6H PRN PO MODERATE PAIN LEVEL 4-6 Last administered on 07/15/17 09:57; Admin Dose 1 TAB; Start 07/14/17 at 13:00 Docusate Sodium (Colace) 100 mg Q12H PRN PO CONSTIPATION; Start 07/14/17 at 13: 00 Zolpidem Tartrate (Ambien) 5 mg QHS PRN PO SLEEP; Start 07/14/17 at 13:00 Memantine (Namenda) 5 mg BID PO Last administered on 07/16/17 09:56; Admin Dose 5 MG; Start 07/14/17 at 21:00 Aspirin (Halfprin) 81 mg DAILY PO Last administered on 07/16/17 09:56; Admin Dose 81 MG; Start 07/15/17 at 09:00 Atorvastatin Calcium (Lipitor) 10 mg HS PO Last administered on 07/15/17 21: 25; Admin Dose 10 MG; Start 07/15/17 at 21:00 Neomycin/ Polymyxin/ Bacitracin (Neosporin Topical Oint) 1 applic DAILY TOP Last administered on 07/16/17 09:58; Admin Dose 1 APPLIC; Start 07/15/17 at 11:00 Amoxicillin (Amoxicillin) 500 mg Q8 PO ; Start 07/16/17 at 14:00 Losartan Potassium (Cozaar) 50 mg DAILY PO ; Start 07/16/17 at 09:00 NATHALIA THORNTON MD Jul 16, 2017 11:05
[2017-07-16 11:59] LABS: IMMUNOGLOBULIN A 339 mg/dl (70-400); IMMUNOGLOBULIN G 1528 mg/dl (700-1600); IMMUNOGLOBULIN M 114 mg/dl (40-230)
--- NOTE | 2017-07-16 13:53 | RADRPT ---
PROCEDURE: MR Lumbar Spine without contrast. CLINICAL INDICATION: Compression fracture. Back pain. TECHNIQUE: Multiplanar multisequence MRI of the lumbar spine was performed. COMPARISON: No similar studies are submitted for comparison. X-ray of the lumbar spine from 2016. FINDINGS: There is a normal lumbar lordosis. There is an acute / recent mild to moderate L1 vertebral body compression fracture without significa nt retropulsion. Otherwise vertebral body heights are maintained. Otherwise there is no abnormal bon e marrow edema. There is no destructive osseous lesion There is disc desiccation from T12-L1 to L5-S1. The conus medullaris is at the T12-L1 level. The cauda equina is unremarkable. T12-L1 : There is mild disc space narrowing. There is a 1 mm broad-based disc bulge and mild bilater al facet arthropathy and ligamentum flavum infolding without spinal canal stenosis. There is mild to moderate right with mild left foraminal stenosis. L1-L2 : There is a 1 mm broad-based disc bulge with moderate bilateral facet arthropathy and ligamen anna flavum infolding without spinal canal stenosis. There is mild to moderate bilateral foraminal st enosis. L2-L3 : There is mild to moderate disc space narrowing. There is a 2 mm broad-based disc bulge with moderate bilateral facet arthropathy and ligamentum flavum infolding without spinal canal stenosis. There is mild to moderate right with moderate left foraminal stenosis. L3-L4 : There is mild disc space narrowing. There is 1 mm retrolisthesis with a 3 mm broad-based dis c bulge with moderate bilateral facet arthropathy and ligamentum flavum infolding without spinal can al stenosis. There is moderate right with mild to moderate left foraminal stenosis. L4-L5 : There is mild to moderate disc space narrowing. There is a 5 mm broad-based disc bulge with severe bilateral facet arthropathy and ligamentum flavum infolding causing severe spinal canal steno sis. There is severe right with moderate left foraminal stenosis impinging the exiting right L4 nerv e root. L5-S1 : There is 1 mm of grade 1 anterolisthesis with a broad-based cerebral pseudo disc bulge with severe left and moderate facet arthropathy and ligamentum flavum infolding causing moderate spinal c anal stenosis. There is mild to moderate right with severe left foraminal stenosis impinging the exi ting left L5 nerve root. The paraspinal musculature are within normal limits. IMPRESSION: 1. Acute / recent mild to moderate L1 vertebral compression fracture without significant retropulsi on. 2. Multilevel bilateral foraminal stenosis with impingement of the exiting right L4 and left L5 nerv e roots as detailed above. 3. Multilevel spinal canal stenosis most pronounced L4-5 where there is a broad-based disc bulge wi th severe spinal canal stenosis. Further findings as detailed above. RPTAT: PP .Natan Cassidy MD, MD Date Time Electronically viewed and signed by .Natan Cassidy MD, on 07/16/2017 13:53 .F/
[2017-07-16] MEDS: AMOXICILLIN 500 MG CAP PO SCH ×2 (14:40→21:21)
[2017-07-16] MEDS: ATORVASTATIN 10 MG TAB PO SCH (21:20)
[2017-07-16] MEDS: LATANOPROST 0.005% 2.5 ML OPH BOTH EYES SCH (21:24)
--- NOTE | 2017-07-16 23:18 | CONS ---
Date/Time of Note Date/Time of Note DATE: 07/16/17 TIME: 23:11 Assessment/Plan Assessment/Plan Chief Complaint/Hosp Course Impression: 1) NSTEMI- unclear. pt with ekg changes non specific twi and elevated troponin. echo with preserved lv fxn and no wma. in addition no current symptoms cp/sob/ hf. at this time decision is to treat medically given age, cognitive decline, pancytopenia. however could reconsider if clinical change. this was d/w family, and PCP Dr. Varma cont bb, tele cont asa 81mg daily cont statin trend trop/ekg anticoag if no c/i 2) Hypertension- bp on lower side, holding losartan/amldipine 3) Pancytopenia- hematology consulting, transfusion as needed 4) acute vertebral fxr on mri- medical mgmt/pain control Problems: Consultation Date/Type/Reason Admit Date/Time Jul 14, 2017 at 10:41 Initial Consult Date 07/16/17 Type of Consultation: Cardiology Referring Provider: YANDY MCDERMOTT MD 24 HR Interval Summary Free Text/Dictation no acute events, pt denies any chest pain/jaw/arm pain/sob. no heart failure symptoms. states he has discomfort in his back. tele reviewed: nsr, pvcs Detailed Summary Eyes: no complaints ENT: no complaints Respiratory: no complaints Cardiovascular: no complaints Gastrointestinal: no complaints Exam/Review of Systems Vital Signs Vitals Vital Signs Date Time Temp Pulse Resp B/P Pulse Ox O2 Delivery O2 Flow Rate FiO2 07/16/17 20:03 75 07/16/17 19:53 98.4 16 126/58 96 07/14/17 16:11 Room Air Intake and Output 07/15/17 07/15/17 07/16/17 15:00 23:00 07:00 Intake Total 850 ml 600 ml Balance 850 ml 600 ml Exam Constitutional: alert, other (answers questiosn, not fully oriented) Psych: nl mood/affect, no complaints Head: atraumatic, normocephalic Eyes: nl conjunctiva ENMT: nl nasal mucosa & septum Neck: non-tender, supple, No jvd Respiratory: clear to auscultation, normal air movement Cardiovascular: nl pulses, regular rate and rhythm, systolic murmur, No S3, No edema Gastrointestinal: non-tender, soft Musculoskeletal: nl extremities to inspection Extremities: normal pulses Neurological: AIR BAG BUFFER II-XII intact, nl mental status, nl speech Results Result Diagram: 07/16/17 0610 07/16/17 0610 Results 24 hrs Laboratory Tests Test 07/16/17 06:10 07/16/17 06:13 07/16/17 10:23 White Blood Count 2.5 L Red Blood Count 1.97 L Hemoglobin 7.5 L Hematocrit 22.8 L Mean Corpuscular Volume 115.7 H Mean Corpuscular Hemoglobin 38.1 H Mean Corpuscular Hemoglobin Concent 32.9 Red Cell Distribution Width 19.9 H Platelet Count 101 L Mean Platelet Volume 11.5 H Neutrophils % 62.3 Lymphocytes % 27.7 Monocytes % 6.8 Eosinophils % 2.0 Basophils % 0.4 Nucleated Red Blood Cells % 0.0 Neutrophils # 1.6 Lymphocytes # 0.7 L Monocytes # 0.2 L Eosinophils # 0.1 Basophils # 0.0 Nucleated Red Blood Cells # 0.0 Absolute Reticulocyte Count 0.089 Percent Reticulocyte Count 4.5 H Sodium Level 138 Potassium Level 3.8 Chloride Level 111 H Carbon Dioxide Level 22 Anion Gap 9 Blood Urea Nitrogen 17 Creatinine 0.87 Glucose Level 88 Calcium Level 7.5 L Total Bilirubin 0.7 Direct Bilirubin 0.00 Indirect Bilirubin 0.7 Aspartate Amino Transf (AST/SGOT) 48 H Alanine Aminotransferase (ALT/SGPT) 46 Alkaline Phosphatase 96 Total Protein 6.5 # Albumin 2.9 L Globulin 3.60 H Albumin/Globulin Ratio 0.80 Lab Scanned Report BLOOD TRANSFUSION Troponin I 1.320 *H Folate 15.2 Immunoglobulin A 339 Immunoglobulin G 1528 Immunoglobulin M 114 Medications Medications Current Medications Brimonidine Tartrate (Alphagan 0.2%) 1 drop Q8 BOTH EYES Last administered on 07/16/17 21:21; Admin Dose 1 DROP; Start 07/14/17 at 14:00 Cyanocobalamin (Vitamin B12) 1,000 mcg DAILY PO Last administered on 09:56; Admin Dose 1,000 MCG; Start 07/15/17 at 09:00 Febuxostat (Uloric) 80 mg DAILY PO Last administered on 07/16/17 09:57; Admin Dose 80 MG; Start 07/14/17 at 13:00 Latanoprost (Xalatan) 1 drop QHS BOTH EYES Last administered on 07/16/17 21: 24; Admin Dose 1 DROP; Start 07/14/17 at 21:00 Metoprolol Tartrate (Lopressor) 25 mg BID PO Last administered on 07/16/17 21 :20; Admin Dose 25 MG; Start 07/14/17 at 13:00 Pregabalin (Lyrica) 50 mg BID PO Last administered on 07/16/17 21:20; Admin Dose 50 MG; Start 07/14/17 at 21:00 Lorazepam 0.25 mg 0.25 mg BID PRN PO ANXIETY; Start 07/14/17 at 13:00 Sodium Chloride (NS) 1,000 ml @ 60 mls/hr [id number] IV Last administered on 02:00; Admin Dose 60 MLS/HR; Start 07/14/17 at 12:48 Ondansetron HCl (Zofran Inj) 4 mg Q6H PRN IV NAUSEA AND/OR VOMITING; Start 07/14/17 at 13:00 Acetaminophen/ Hydrocodone Bitart ([place] (5/325)) 1 tab Q6H PRN PO MODERATE PAIN LEVEL 4-6 Last administered on 07/15/17 09:57; Admin Dose 1 TAB; Start 07/14/17 at 13:00 Docusate Sodium (Colace) 100 mg Q12H PRN PO CONSTIPATION; Start 07/14/17 at 13: 00 Zolpidem Tartrate (Ambien) 5 mg QHS PRN PO SLEEP; Start 07/14/17 at 13:00 Memantine (Namenda) 5 mg BID PO Last administered on 07/16/17 21:20; Admin Dose 5 MG; Start 07/14/17 at 21:00 Aspirin (Halfprin) 81 mg DAILY PO Last administered on 07/16/17 09:56; Admin Dose 81 MG; Start 07/15/17 at 09:00 Atorvastatin Calcium (Lipitor) 10 mg HS PO Last administered on 07/16/17 21: 20; Admin Dose 10 MG; Start 07/15/17 at 21:00 Neomycin/ Polymyxin/ Bacitracin (Neosporin Topical Oint) 1 applic DAILY TOP Last administered on 07/16/17 09:58; Admin Dose 1 APPLIC; Start 07/15/17 at 11:00 Amoxicillin (Amoxicillin) 500 mg Q8 PO Last administered on 07/16/17t 21:21; Admin Dose 500 MG; Start 07/16/17 at 14:00 Losartan Potassium (Cozaar) 50 mg DAILY PO ; Start 07/16/17 at 09:[address] head/mri spine report reviewed OLLIE FISCHER Jul 16, 2017 23:18
[2017-07-17] VITALS (12 sets, daily range): BP systolic 85–133; BP diastolic 43–66; PULSE 58–97; RESP 16–18
[2017-07-17] MEDS: SOD CHLORIDE 0.9% 1,000 ML IV SCH (01:17)
[2017-07-17 03:27] LABS: PROTEIN, TOTAL 6.1 g/dL (6.1-8.1)
[2017-07-17] MEDS: BRIMONIDINE 0.2% 5 ML BTL BOTH EYES SCH ×3 (05:34→22:11)
[2017-07-17] MEDS: AMOXICILLIN 500 MG CAP PO SCH ×3 (05:34→22:11)
[2017-07-17] MEDS: METOPROLOL 25 MG TAB PO SCH ×2 (09:00→20:47)
[2017-07-17] MEDS: LOSARTAN 50 MG TAB PO SCH (09:00)
[2017-07-17] MEDS: ASPIRIN (EC) 81 MG TAB PO SCH (09:12)
[2017-07-17] MEDS: NEOMYC/POLYMYX/BACIT 30 GM OINT TOP SCH (09:12)
[2017-07-17] MEDS: MEMANTINE 5 MG TAB PO SCH ×2 (09:14→20:46)
[2017-07-17] MEDS: CYANOCOBALAMIN 500 MCG TAB PO SCH (09:14)
[2017-07-17] MEDS: FEBUXOSTAT 40 MG TABLET PO SCH (09:16)
[2017-07-17] MEDS: PREGABALIN 50 MG CAP PO SCH ×2 (09:16→20:46)
--- NOTE | 2017-07-17 10:02 | PN ---
Date/Time of Note Date/Time of Note DATE: 07/17/17 TIME: 09:58 Assessment/Plan VTE Prophylaxis VTE Prophylaxis Intervention: SCD's Lines/Catheters IV C[facility]ter Type (from [facility]): [facility] Urinary Cath still in place: No Assessment/Plan Chief Complaint/Hosp Course 1. fall and gait abnormality , start PT and consider Acute Rehab Unit . Patient can be transferred to [facility]. 2. Pancytopenia . Hematology w/u is in progress , his H&H is drifting down. He may need a blood transfusion. Hematology is recommending a bone marrow aspirate and biopsy. I will discuss this with patient and I agree 3. hypertension , BP is low , I will DC amlodipine. 4. dilated ventricles on CT scan , r/o Normal pressure hydrocephalus , will get neurology consult . 5. lumbar spine fractures , 1 of the lumbar spine fractures is acute. He also has some lumbar disc disease with stenosis. 6. He has a urinary tract infection and I have started him on amoxicillin. Problems: Subjective 24 Hr Interval Summary Free Text/Dictation He is awake and responsive this morning. His son is in the room with him. The patient denies any pain. The patient has not been up walking. The patient has been constipated. Constitutional: no complaints Respiratory: no complaints Cardiovascular: no complaints Gastrointestinal: constipation Genitourinary: no complaints Neurologic: no complaints Exam/Review of Systems Vital Signs Vitals Vital Signs Date Time Temp Pulse Resp B/P Pulse Ox O2 Delivery O2 Flow Rate FiO2 07/17/17 08:00 59 07/17/17 07:43 98.2 18 109/56 93 07/14/17 16:11 Room Air Intake and Output 07/16/17 07/16/17 07/17/17 15:00 23:00 07:00 Intake Total 1210 ml 300 ml Output Total 400 ml 420 ml Balance 810 ml -120 ml Exam Constitutional: alert, frail, oriented Respiratory: clear to auscultation, normal air movement Cardiovascular: regular rate and rhythm Gastrointestinal: soft Musculoskeletal: nl extremities to inspection Results Result Diagram: 07/16/17 0610 07/16/17 0610 Results 24 hrs Laboratory Tests Test 07/16/17 10:23 Troponin I 1.320 *H Total Protein (PEP) 6.1 Albumin (PEP) Pending [id number] Pending [id number] Pending Beta Globulins Pending [id number] Pending Gamma Globulins Pending Protein Electrophoresis Interpret Pending Folate 15.2 Immunoglobulin A 339 Immunoglobulin G 1528 Immunoglobulin M 114 Serum Immunofixation Pending Medications Medications Current Medications Brimonidine Tartrate (Alphagan 0.2%) 1 drop Q8 BOTH EYES Last administered on 07/17/17 05:34; Admin Dose 1 DROP; Start 07/14/17 at 14:00 Cyanocobalamin (Vitamin B12) 1,000 mcg DAILY PO Last administered on 09:14; Admin Dose 1,000 MCG; Start 07/15/17 at 09:00 Febuxostat (Uloric) 80 mg DAILY PO Last administered on 07/17/17 09:16; Admin Dose 80 MG; Start 07/14/17 at 13:00 Latanoprost (Xalatan) 1 drop QHS BOTH EYES Last administered on 07/16/17 21: 24; Admin Dose 1 DROP; Start 07/14/17 at 21:00 Metoprolol Tartrate (Lopressor) 25 mg BID PO Last administered on 07/16/17 21 :20; Admin Dose 25 MG; Start 07/14/17 at 13:00 Pregabalin (Lyrica) 50 mg BID PO Last administered on 07/17/17 09:16; Admin Dose 50 MG; Start 07/14/17 at 21:00 Lorazepam 0.25 mg 0.25 mg BID PRN PO ANXIETY; Start 07/14/17 at 13:00 Sodium Chloride (NS) 1,000 ml @ 60 mls/hr [id number] IV Last administered on 01:17; Admin Dose 60 MLS/HR; Start 07/14/17 at 12:48 Ondansetron HCl (Zofran Inj) 4 mg Q6H PRN IV NAUSEA AND/OR VOMITING; Start 07/14/17 at 13:00 Acetaminophen/ Hydrocodone Bitart ([place] (5/325)) 1 tab Q6H PRN PO MODERATE PAIN LEVEL 4-6 Last administered on 07/15/17 09:57; Admin Dose 1 TAB; Start 07/14/17 at 13:00 Docusate Sodium (Colace) 100 mg Q12H PRN PO CONSTIPATION; Start 07/14/17 at 13: 00 Zolpidem Tartrate (Ambien) 5 mg QHS PRN PO SLEEP; Start 07/14/17 at 13:00 Memantine (Namenda) 5 mg BID PO Last administered on 07/17/17 09:14; Admin Dose 5 MG; Start 07/14/17 at 21:00 Aspirin (Halfprin) 81 mg DAILY PO Last administered on 07/17/17 09:12; Admin Dose 81 MG; Start 07/15/17 at 09:00 Atorvastatin Calcium (Lipitor) 10 mg HS PO Last administered on 07/16/17 21: 20; Admin Dose 10 MG; Start 07/15/17 at 21:00 Neomycin/ Polymyxin/ Bacitracin (Neosporin Topical Oint) 1 applic DAILY TOP Last administered on 07/17/17 09:12; Admin Dose 1 APPLIC; Start 07/15/17 at 11:00 Amoxicillin (Amoxicillin) 500 mg Q8 PO Last administered on 07/17/17 05:34; Admin Dose 500 MG; Start 07/16/17 at 14:00 Losartan Potassium (Cozaar) 50 mg DAILY PO ; Start 07/16/17 at 09:00 YANDY MCDERMOTT MD Jul 17, 2017 10:02
[2017-07-17] MEDS ORDERED: BISACODYL 10 MG SUPP PR PRN (10:30)
[2017-07-17 10:41] LABS: ABNORMAL IP MESSAGE 1; EOSINOPHILS # 0.1 10^3/ul (0.0-0.5); EOSINOPHILS % 2.5 % (0.0-7.0); HEMATOCRIT 22.3 % (42.0-52.0); HEMOGLOBIN 7.4 g/dl (14.0-18.0); LYMPHOCYTES # 0.5 10^3/ul (0.8-2.9); LYMPHOCYTES % 22.8 % (15.0-51.0); MEAN CORPUSCULAR HEMOGLOBIN 38.9 pg (29.0-33.0); MEAN CORPUSCULAR HGB CONC 33.2 g/dl (32.0-37.0); MEAN CORPUSCULAR VOLUME 117.4 fl (82.0-101.0); MEAN PLATELET VOLUME 11.3 fl (7.4-10.4); MONOCYTE # 0.2 10^3/ul (0.3-0.9); MONOCYTES % 8.4 % (0.0-11.0); NEUTROPHIL # 1.6 10^3/ul (1.6-7.5); NEUTROPHILS % 65.9 % (39.0-77.0); PLATELET COUNT 98 10^3/UL (140-415); POSITIVE DIFF @See below; RED CELL DISTRIBUTION WIDTH 19.7 % (11.5-14.5); WHITE BLOOD COUNT 2.4 10^3/ul (4.8-10.8)
[2017-07-17 11:01] LABS: ALBUMIN 2.8 g/dl (3.3-4.9); ALBUMIN/GLOBULIN RATIO 0.8; BILIRUBIN,INDIRECT 0.6 mg/dl (0-1.1); BILIRUBIN,TOTAL 0.6 mg/dl (0.2-1.3); CALCIUM 7.6 mg/dl (8.4-10.2); CREATININE 0.88 mg/dl (0.61-1.24); POTASSIUM 3.9 mmol/L (3.5-5.1); TOTAL PROTEIN 6.3 g/dl (6.1-8.1)
[2017-07-17] MEDS: MAGNESIUM HYDROXIDE 30ML CUP PO PRN (11:33)
[2017-07-17 14:26] LABS: ALBUMIN 2.9 g/dL (3.8-4.8); HOMOCYSTEINE - CARDIOVASCULAR 7.8 umol/L (<11.4)
--- NOTE | 2017-07-17 14:39 | PN ---
Date/Time of Note Date/Time of Note DATE: 07/17/17 TIME: 14:34 Assessment/Plan VTE Prophylaxis VTE Prophylaxis Intervention: other ([id number]) Lines/Catheters [facility] Saline Lock Urinary Cath still in place: No Assessment/Plan Chief Complaint/Hosp Course 87 yo man known to me as an outpatient. 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 This year he had pancytopenia with normal B12 and folate, borderline iron and a low EPO assay. Atrial of iron was unsuccessful and he is now getting Procrit trial with slight rise of 1 gm/dl noted over a six week period. 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 Today he was admitted via the ER after falling at home. Note that Dr. Moreno had been reducing the amount of antihypertensives that he took. Pt has also been encouraged to eat better but family says that he eats poorly and is extremely inactive. The fall at home was likely due to slipping and pt denies LOC, chest pain or palpitations. Troponin elevation noted and conservative medical treatment is advised. This is very reasonable given age and poor performance status. Hgb is still low at ~ 7 1/2. Problems: Assessment/Plan Plan to continue Procrit but will also get bone marrow biopsy. Pt now agrees to it. I also spoke to Dr. Moreno, who talked to family earlier today. I would transfuse to get Hgb over 8 and then do the biopsy tomorrow. Although MDS is the most likely diagnosis, it is possible that there could be an occult malignancy. This would result in a different treatment program. Subjective 24 Hr Interval Summary Free Text/Dictation Pt feels comfortable presently. No chest pain or dyspnea. Exam/Review of Systems Vital Signs Vitals Vital Signs Date Time Temp Pulse Resp B/P Pulse Ox O2 Delivery O2 Flow Rate FiO2 07/17/17 12:00 67 07/17/17 11:08 99.1 18 110/53 94 07/14/17 16:11 Room Air Intake and Output 07/16/17 07/16/17 07/17/17 15:00 23:00 07:00 Intake Total 1210 ml 300 ml Output Total 400 ml 420 ml Balance 810 ml -120 ml Exam Constitutional: alert Head: normocephalic, other (small abrasion of posterior scalp) Neck: supple Respiratory: clear to auscultation Cardiovascular: regular rate and rhythm Gastrointestinal: nl liver, spleen, non-tender, soft Results Result Diagram: 07/17/17 1015 07/17/17 1015 Results 24 hrs Laboratory Tests Test 07/17/17 10:15 07/17/17 10:18 White Blood Count 2.4 L Red Blood Count 1.90 L Hemoglobin 7.4 L Hematocrit 22.3 L Mean Corpuscular Volume 117.4 H Mean Corpuscular Hemoglobin 38.9 H Mean Corpuscular Hemoglobin Concent 33.2 Red Cell Distribution Width 19.7 H Platelet Count 98 L Mean Platelet Volume 11.3 H Neutrophils % 65.9 Lymphocytes % 22.8 Monocytes % 8.4 Eosinophils % 2.5 Basophils % 0.0 Nucleated Red Blood Cells % 0.0 Neutrophils # 1.6 Lymphocytes # 0.5 L Monocytes # 0.2 L Eosinophils # 0.1 Basophils # 0.0 Nucleated Red Blood Cells # 0.0 Sodium Level 139 Potassium Level 3.9 Chloride Level 111 H Carbon Dioxide Level 23 Anion Gap 9 Blood Urea Nitrogen 15 Creatinine 0.88 Glucose Level 109 Calcium Level 7.6 L Total Bilirubin 0.6 Direct Bilirubin 0.00 Indirect Bilirubin 0.6 Aspartate Amino Transf (AST/SGOT) 43 Alanine Aminotransferase (ALT/SGPT) 47 Alkaline Phosphatase 97 Total Protein 6.3 Albumin 2.8 L Globulin 3.50 H Albumin/Globulin Ratio 0.80 Troponin I 1.020 *H Medications Medications Current Medications Brimonidine Tartrate (Alphagan 0.2%) 1 drop Q8 BOTH EYES Last administered on 07/17/17 14:22; Admin Dose 1 DROP; Start 07/14/17 at 14:00 Cyanocobalamin (Vitamin B12) 1,000 mcg DAILY PO Last administered on 09:14; Admin Dose 1,000 MCG; Start 07/15/17 at 09:00 Febuxostat (Uloric) 80 mg DAILY PO Last administered on 07/17/17 09:16; Admin Dose 80 MG; Start 07/14/17 at 13:00 Latanoprost (Xalatan) 1 drop QHS BOTH EYES Last administered on 07/16/17 21: 24; Admin Dose 1 DROP; Start 07/14/17 at 21:00 Metoprolol Tartrate (Lopressor) 25 mg BID PO Last administered on 07/16/17 21 :20; Admin Dose 25 MG; Start 07/14/17 at 13:00 Pregabalin (Lyrica) 50 mg BID PO Last administered on 07/17/17 09:16; Admin Dose 50 MG; Start 07/14/17 at 21:00 Lorazepam (Ativan) 0.25 mg BID PRN PO ANXIETY; Start 07/14/17 at 13:00 Ondansetron HCl (Zofran Inj) 4 mg Q6H PRN IV NAUSEA AND/OR VOMITING; Start 07/14/17 at 13:00 Acetaminophen/ Hydrocodone Bitart ([place] (5/325)) 1 tab Q6H PRN PO MODERATE PAIN LEVEL 4-6 Last administered on 07/15/17 09:57; Admin Dose 1 TAB; Start 07/14/17 at 13:00 Docusate Sodium (Colace) 100 mg Q12H PRN PO CONSTIPATION; Start 07/14/17 at 13: 00 Zolpidem Tartrate (Ambien) 5 mg QHS PRN PO SLEEP; Start 07/14/17 at 13:00 Memantine (Namenda) 5 mg BID PO Last administered on 07/17/17 09:14; Admin Dose 5 MG; Start 07/14/17 at 21:00 Aspirin (Halfprin) 81 mg DAILY PO Last administered on 07/17/17 09:12; Admin Dose 81 MG; Start 07/15/17 at 09:00 Atorvastatin Calcium (Lipitor) 10 mg HS PO Last administered on 07/16/17 21: 20; Admin Dose 10 MG; Start 07/15/17 at 21:00 Neomycin/ Polymyxin/ Bacitracin (Neosporin Topical Oint) 1 applic DAILY TOP Last administered on 07/17/17 09:12; Admin Dose 1 APPLIC; Start 07/15/17 at 11:00 Amoxicillin (Amoxicillin) 500 mg Q8 PO Last administered on 07/17/17 14:22; Admin Dose 500 MG; Start 07/16/17 at 14:00 Losartan Potassium (Cozaar) 50 mg DAILY PO ; Start 07/16/17 at 09:00 Epoetin Rosendo (Epogen (Esrd)) 10,000 units TuThSa@17 SC ; Start 07/17/17 at 17: 00 Magnesium Hydroxide (Milk Of Mag) 30 ml BID PRN PO CONSTIPATION Last administered on 07/17/17t 11:33; Admin Dose 30 ML; Start 07/17/17 at 10:30 Bisacodyl (Dulcolax Supp) 10 mg DAILY PRN [place] CONSTIPATION; Start 07/17/17 at 10:30 CHERRY JANE MD Jul 17, 2017 14:39
[2017-07-17] MEDS: EPOETIN 10000 UNITS/1 ML INJ (ESRD) SC SCH (17:14)
[2017-07-17] MEDS: ATORVASTATIN 10 MG TAB PO SCH (20:46)
[2017-07-17] MEDS: LATANOPROST 0.005% 2.5 ML OPH BOTH EYES SCH (22:11)
--- NOTE | 2017-07-17 23:31 | CONS ---
Date/Time of Note Date/Time of Note DATE: 07/17/17 TIME: 23:27 Assessment/Plan Assessment/Plan Chief Complaint/Hosp Course Impression: 1) NSTEMI- peak trop to 1.3. pt with ekg changes non specific twi and elevated troponin. echo with preserved lv fxn and no wma. in addition no current symptoms cp/sob/hf. this was d/w family at bedside and PCP Dr. Varma, decision is to treat medically given age, cognitive decline, pancytopenia. cont bb, tele cont asa 81mg daily cont statin 2) Hypertension- bp on lower side, holding losartan/amldipine 3) Pancytopenia- hematology consulting, transfusion as needed 4) acute vertebral fxr on mri- medical mgmt/pain control Problems: Consultation Date/Type/Reason Admit Date/Time Jul 14, 2017 at 10:41 Initial Consult Date 07/16/17 Type of Consultation: Cardiology Referring Provider: YANDY MCDERMOTT MD 24 HR Interval Summary Free Text/Dictation no acute events. pt seen this am, denies cp/sob/palp. still with back pain tele reviewed: no evets, nsr pvcs Detailed Summary ENT: no complaints Respiratory: no complaints Cardiovascular: no complaints Exam/Review of Systems Vital Signs Vitals Vital Signs Date Time Temp Pulse Resp B/P Pulse Ox O2 Delivery O2 Flow Rate FiO2 07/17/17 20:07 97 07/17/17 19:35 99.5 16 133/66 94 07/14/17 16:11 Room Air Intake and Output 07/16/17 07/16/17 07/17/17 15:00 23:00 07:00 Intake Total 1210 ml 300 ml Output Total 400 ml 420 ml Balance 810 ml -120 ml Exam Constitutional: alert, other (answers questiosn, not fully oriented) Psych: nl mood/affect, no complaints Head: atraumatic, normocephalic Eyes: nl conjunctiva ENMT: nl nasal mucosa & septum Neck: non-tender, supple, No jvd Respiratory: clear to auscultation, normal air movement Cardiovascular: nl pulses, regular rate and rhythm, systolic murmur, No S3, No edema Gastrointestinal: non-tender, soft Musculoskeletal: nl extremities to inspection Extremities: normal pulses Neurological: CLINICAL TRIAL LEADER II-XII intact, nl mental status, nl speech Results Result Diagram: 07/17/17 1015 07/17/17 1015 Results 24 hrs Laboratory Tests Test 07/17/17 10:15 07/17/17 10:18 White Blood Count 2.4 L Red Blood Count 1.90 L Hemoglobin 7.4 L Hematocrit 22.3 L Mean Corpuscular Volume 117.4 H Mean Corpuscular Hemoglobin 38.9 H Mean Corpuscular Hemoglobin Concent 33.2 Red Cell Distribution Width 19.7 H Platelet Count 98 L Mean Platelet Volume 11.3 H Neutrophils % 65.9 Lymphocytes % 22.8 Monocytes % 8.4 Eosinophils % 2.5 Basophils % 0.0 Nucleated Red Blood Cells % 0.0 Neutrophils # 1.6 Lymphocytes # 0.5 L Monocytes # 0.2 L Eosinophils # 0.1 Basophils # 0.0 Nucleated Red Blood Cells # 0.0 Sodium Level 139 Potassium Level 3.9 Chloride Level 111 H Carbon Dioxide Level 23 Anion Gap 9 Blood Urea Nitrogen 15 Creatinine 0.88 Glucose Level 109 Calcium Level 7.6 L Total Bilirubin 0.6 Direct Bilirubin 0.00 Indirect Bilirubin 0.6 Aspartate Amino Transf (AST/SGOT) 43 Alanine Aminotransferase (ALT/SGPT) 47 Alkaline Phosphatase 97 Total Protein 6.3 Albumin 2.8 L Globulin 3.50 H Albumin/Globulin Ratio 0.80 Troponin I 1.020 *H Medications Medications Current Medications Brimonidine Tartrate (Alphagan 0.2%) 1 drop Q8 BOTH EYES Last administered on 07/17/17 22:11; Admin Dose 1 DROP; Start 07/14/17 at 14:00 Cyanocobalamin (Vitamin B12) 1,000 mcg DAILY PO Last administered on 09:14; Admin Dose 1,000 MCG; Start 07/15/17 at 09:00 Febuxostat (Uloric) 80 mg DAILY PO Last administered on 07/17/17 09:16; Admin Dose 80 MG; Start 07/14/17 at 13:00 Latanoprost (Xalatan) 1 drop QHS BOTH EYES Last administered on 07/17/17 22: 11; Admin Dose 1 DROP; Start 07/14/17 at 21:00 Metoprolol Tartrate (Lopressor) 25 mg BID PO Last administered on 07/17/17 20 :47; Admin Dose 25 MG; Start 07/14/17 at 13:00 Pregabalin (Lyrica) 50 mg BID PO Last administered on 07/17/17 20:46; Admin Dose 50 MG; Start 07/14/17 at 21:00 Lorazepam (Ativan) 0.25 mg BID PRN PO ANXIETY; Start 07/14/17 at 13:00 Ondansetron HCl (Zofran Inj) 4 mg Q6H PRN IV NAUSEA AND/OR VOMITING; Start 07/14/17 at 13:00 Acetaminophen/ Hydrocodone Bitart ([place] (5/325)) 1 tab Q6H PRN PO MODERATE PAIN LEVEL 4-6 Last administered on 07/15/17 09:57; Admin Dose 1 TAB; Start 07/14/17 at 13:00 Docusate Sodium (Colace) 100 mg Q12H PRN PO CONSTIPATION; Start 07/14/17 at 13: 00 Zolpidem Tartrate (Ambien) 5 mg QHS PRN PO SLEEP; Start 07/14/17 at 13:00 Memantine (Namenda) 5 mg BID PO Last administered on 07/17/17 20:46; Admin Dose 5 MG; Start 07/14/17 at 21:00 Aspirin (Halfprin) 81 mg DAILY PO Last administered on 07/17/17 09:12; Admin Dose 81 MG; Start 07/15/17 at 09:00 Atorvastatin Calcium (Lipitor) 10 mg HS PO Last administered on 07/17/17 20: 46; Admin Dose 10 MG; Start 07/15/17 at 21:00 Neomycin/ Polymyxin/ Bacitracin (Neosporin Topical Oint) 1 applic DAILY TOP Last administered on 07/17/17 09:12; Admin Dose 1 APPLIC; Start 07/15/17 at 11:00 Amoxicillin (Amoxicillin) 500 mg Q8 PO Last administered on 07/17/17 22:11; Admin Dose 500 MG; Start 07/16/17 at 14:00 Losartan Potassium (Cozaar) 50 mg DAILY PO ; Start 07/16/17 at 09:00 Epoetin Rosendo (Epogen (Esrd)) 10,000 units TuThSa@17 SC Last administered on 17:14; Admin Dose 10,000 UNITS; Start 07/17/17 at 17:00 Magnesium Hydroxide (Milk Of Mag) 30 ml BID PRN PO CONSTIPATION Last administered on 07/17/17t 11:33; Admin Dose 30 ML; Start 07/17/17 at 10:30 Bisacodyl (Dulcolax Supp) [address] CONSTIPATION; Start 07/17/17 at 10:[address] report reviewed in emr OLLIE FISCHER Jul 17, 2017 23:31
[2017-07-18] VITALS (9 sets, daily range): BP systolic 84–156; BP diastolic 49–96; PULSE 63–103; RESP 16–20
[2017-07-18] MEDS: AMOXICILLIN 500 MG CAP PO SCH ×3 (06:03→21:15)
[2017-07-18] MEDS: BRIMONIDINE 0.2% 5 ML BTL BOTH EYES SCH ×3 (06:03→21:15)
[2017-07-18 06:15] LABS: ABNORMAL IP MESSAGE 1; EOSINOPHILS # 0.1 10^3/ul (0.0-0.5); EOSINOPHILS % 2.5 % (0.0-7.0); HEMATOCRIT 26.3 % (42.0-52.0); HEMOGLOBIN 8.5 g/dl (14.0-18.0); LYMPHOCYTES # 0.8 10^3/ul (0.8-2.9); LYMPHOCYTES % 27.8 % (15.0-51.0); MEAN CORPUSCULAR HGB CONC 32.3 g/dl (32.0-37.0); MEAN CORPUSCULAR VOLUME 111.4 fl (82.0-101.0); MEAN PLATELET VOLUME 11.7 fl (7.4-10.4); MONOCYTE # 0.3 10^3/ul (0.3-0.9); NEUTROPHIL # 1.7 10^3/ul (1.6-7.5); NUCLEATED RED BLOOD CELLS% 0.7 /100WBC (0.0-0.0); PLATELET COUNT 111 10^3/UL (140-415); POSITIVE DIFF @See below; RED BLOOD COUNT 2.36 10^6/ul (4.70-6.10); RED CELL DISTRIBUTION WIDTH 23.8 % (11.5-14.5); WHITE BLOOD COUNT 2.8 10^3/ul (4.8-10.8)
[2017-07-18] MEDS: LOSARTAN 50 MG TAB PO SCH (09:00)
[2017-07-18] MEDS: METOPROLOL 25 MG TAB PO SCH ×2 (09:00→21:16)
--- NOTE | 2017-07-18 09:03 | PN ---
Date/Time of Note Date/Time of Note DATE: 07/18/17 TIME: 09:00 Assessment/Plan VTE Prophylaxis VTE Prophylaxis Intervention: SCD's Lines/Catheters IV [facility] Type [facility]from [facility] Saline Lock Urinary Cath still in place: No Assessment/Plan Chief Complaint/Hosp Course 1. fall and gait abnormality , start PT and consider Acute Rehab Unit . Patient can be transferred to [facility]. 2. Pancytopenia . Hematology w/u is in progress , his H&H is drifting down. He had a blood transfusion yesterday. He is scheduled to have a bone marrow aspirate and biopsy today. 3. hypertension , BP is low , I will DC amlodipine. 4. dilated ventricles on CT scan , r/o Normal pressure hydrocephalus . Neuro does not think patient has a normal pressure hydrocephalus . 5. lumbar spine fractures , 1 of the lumbar spine fracture is acute. He also has some lumbar disc disease with stenosis. He is not complaining of pain. 6. He has a urinary tract infection and I have started him on amoxicillin. Problems: Subjective 24 Hr Interval Summary Free Text/Dictation He is awake and responsive. He has no complaints. He denies pain. Constitutional: no complaints ENT: no complaints Respiratory: no complaints Gastrointestinal: no complaints Genitourinary: no complaints Skin: no complaints Exam/Review of Systems Vital Signs Vitals Vital Signs Date Time Temp Pulse Resp B/P Pulse Ox O2 Delivery O2 Flow Rate FiO2 07/18/17 08:08 97.7 58 18 108/51 91 07/18/17 04:00 Nasal Cannula 2.0 Intake and Output 07/17/17 07/17/17 07/18/17 15:00 23:00 07:00 Intake Total 600 ml 400 ml Output Total 500 ml Balance 600 ml -100 ml Exam Constitutional: alert, frail, oriented Respiratory: clear to auscultation, normal air movement Cardiovascular: regular rate and rhythm Gastrointestinal: soft Musculoskeletal: nl extremities to inspection Results Result Diagram: 07/18/17 0543 07/17/17 1015 Results 24 hrs Laboratory Tests Test 07/17/17 10:15 07/17/17 10:18 07/18/17 05:43 White Blood Count 2.4 L 2.8 L Red Blood Count 1.90 L 2.36 #L Hemoglobin 7.4 L 8.5 L Hematocrit 22.3 L 26.3 L Mean Corpuscular Volume 117.4 H 111.4 H Mean Corpuscular Hemoglobin 38.9 H 36.0 H Mean Corpuscular Hemoglobin Concent 33.2 32.3 Red Cell Distribution Width 19.7 H 23.8 #H Platelet Count 98 L 111 L Mean Platelet Volume 11.3 H 11.7 H Neutrophils % 65.9 59.0 Lymphocytes % 22.8 27.8 Monocytes % 8.4 10.0 Eosinophils % 2.5 2.5 Basophils % 0.0 0.0 Nucleated Red Blood Cells % 0.0 0.7 H Neutrophils # 1.6 1.7 Lymphocytes # 0.5 L 0.8 Monocytes # 0.2 L 0.3 Eosinophils # 0.1 0.1 Basophils # 0.0 0.0 Nucleated Red Blood Cells # 0.0 0.0 Sodium Level 139 Potassium Level 3.9 Chloride Level 111 H Carbon Dioxide Level 23 Anion Gap 9 Blood Urea Nitrogen 15 Creatinine 0.88 Glucose Level 109 Calcium Level 7.6 L Total Bilirubin 0.6 Direct Bilirubin 0.00 Indirect Bilirubin 0.6 Aspartate Amino Transf (AST/SGOT) 43 Alanine Aminotransferase (ALT/SGPT) 47 Alkaline Phosphatase 97 Total Protein 6.3 Albumin 2.8 L Globulin 3.50 H Albumin/Globulin Ratio 0.80 Troponin I 1.020 *H Medications Medications Current Medications Brimonidine Tartrate (Alphagan 0.2%) 1 drop Q8 BOTH EYES Last administered on 07/18/17 06:03; Admin Dose 1 DROP; Start 07/14/17 at 14:00 Cyanocobalamin (Vitamin B12) 1,000 mcg DAILY PO Last administered on 09:14; Admin Dose 1,000 MCG; Start 07/15/17 at 09:00 Febuxostat (Uloric) 80 mg DAILY PO Last administered on 07/17/17 09:16; Admin Dose 80 MG; Start 07/14/17 at 13:00 Latanoprost (Xalatan) 1 drop QHS BOTH EYES Last administered on 07/17/17 22: 11; Admin Dose 1 DROP; Start 07/14/17 at 21:00 Metoprolol Tartrate (Lopressor) 25 mg BID PO Last administered on 07/17/17 20 :47; Admin Dose 25 MG; Start 07/14/17 at 13:00 Pregabalin (Lyrica) 50 mg BID PO Last administered on 07/17/17 20:46; Admin Dose 50 MG; Start 07/14/17 at 21:00 Lorazepam (Ativan) 0.25 mg BID PRN PO ANXIETY; Start 07/14/17 at 13:00 Ondansetron HCl (Zofran Inj) 4 mg Q6H PRN IV NAUSEA AND/OR VOMITING; Start 07/14/17 at 13:00 Acetaminophen/ Hydrocodone Bitart ([place] (5/325)) 1 tab Q6H PRN PO MODERATE PAIN LEVEL 4-6 Last administered on 07/15/17 09:57; Admin Dose 1 TAB; Start 07/14/17 at 13:00 Docusate Sodium (Colace) 100 mg Q12H PRN PO CONSTIPATION; Start 07/14/17 at 13: 00 Zolpidem Tartrate (Ambien) 5 mg QHS PRN PO SLEEP; Start 07/14/17 at 13:00 Memantine (Namenda) 5 mg BID PO Last administered on 07/17/17 20:46; Admin Dose 5 MG; Start 07/14/17 at 21:00 Aspirin (Halfprin) 81 mg DAILY PO Last administered on 07/17/17 09:12; Admin Dose 81 MG; Start 07/15/17 at 09:00 Atorvastatin Calcium (Lipitor) 10 mg HS PO Last administered on 07/17/17 20: 46; Admin Dose 10 MG; Start 07/15/17 at 21:00 Neomycin/ Polymyxin/ Bacitracin (Neosporin Topical Oint) 1 applic DAILY TOP Last administered on 07/17/17 09:12; Admin Dose 1 APPLIC; Start 07/15/17 at 11:00 Amoxicillin (Amoxicillin) 500 mg Q8 PO Last administered on 07/18/17 06:03; Admin Dose 500 MG; Start 07/16/17 at 14:00 Losartan Potassium (Cozaar) 50 mg DAILY PO ; Start 07/16/17 at 09:00 Epoetin Rosendo (Epogen (Esrd)) 10,000 units TuThSa@17 SC Last administered on 17:14; Admin Dose 10,000 UNITS; Start 07/17/17 at 17:00 Magnesium Hydroxide (Milk Of Mag) 30 ml BID PRN PO CONSTIPATION Last administered on 07/17/17t 11:33; Admin Dose 30 ML; Start 07/17/17 at 10:30 Bisacodyl (Dulcolax Supp) 10 mg DAILY PRN [place] CONSTIPATION; Start 07/17/17 at 10:30 YANDY MCDERMOTT MD Jul 18, 2017 09:03
--- NOTE | 2017-07-18 09:06 | PN ---
Date/Time of Note Date/Time of Note DATE: 07/18/17 TIME: 09:03 Assessment/Plan VTE Prophylaxis VTE Prophylaxis Intervention: other (aspirin) Lines/Catheters IV C[facility]ter Type (from [facility]): Saline Lock Urinary Cath still in place: No Assessment/Plan Chief Complaint/Hosp Course 87 yo man known to me as an outpatient. 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 This year he had pancytopenia with normal B12 and folate, borderline iron and a low EPO assay. Atrial of iron was unsuccessful and he is now getting Procrit trial with slight rise of 1 gm/dl noted over a six week period. 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 Today he was admitted via the ER after falling at home. Note that Dr. Moreno had been reducing the amount of antihypertensives that he took. Pt has also been encouraged to eat better but family says that he eats poorly and is extremely inactive. The fall at home was likely due to slipping and pt denies LOC, chest pain or palpitations. Troponin elevation noted and conservative medical treatment is advised. This is very reasonable given age and poor performance status. Hgb is still low at ~ 7 1/2. Problems: Assessment/Plan Pt has Hgb up to 8.5, reflecting the transfusion. He is clinically stable. Nurse tells me that bone marrow biopsy will be done later today. Continue Procrit Subjective 24 Hr Interval Summary Free Text/Dictation t is comfortable and lying in bed. Exam/Review of Systems Vital Signs Vitals Vital Signs Date Time Temp Pulse Resp B/P Pulse Ox O2 Delivery O2 Flow Rate FiO2 07/18/17 08:08 97.7 58 18 108/51 91 07/18/17 04:00 Nasal Cannula 2.0 Intake and Output 07/17/17 07/17/17 07/18/17 15:00 23:00 07:00 Intake Total 600 ml 400 ml Output Total 500 ml Balance 600 ml -100 ml Exam Constitutional: alert, oriented Head: normocephalic Neck: supple Respiratory: clear to auscultation Cardiovascular: regular rate and rhythm Gastrointestinal: non-tender, soft Results Result Diagram: 07/18/17 0543 07/17/17 1015 Results 24 hrs Laboratory Tests Test 07/17/17 10:15 07/17/17 10:18 07/18/17 05:43 White Blood Count 2.4 L 2.8 L Red Blood Count 1.90 L 2.36 #L Hemoglobin 7.4 L 8.5 L Hematocrit 22.3 L 26.3 L Mean Corpuscular Volume 117.4 H 111.4 H Mean Corpuscular Hemoglobin 38.9 H 36.0 H Mean Corpuscular Hemoglobin Concent 33.2 32.3 Red Cell Distribution Width 19.7 H 23.8 #H Platelet Count 98 L 111 L Mean Platelet Volume 11.3 H 11.7 H Neutrophils % 65.9 59.0 Lymphocytes % 22.8 27.8 Monocytes % 8.4 10.0 Eosinophils % 2.5 2.5 Basophils % 0.0 0.0 Nucleated Red Blood Cells % 0.0 0.7 H Neutrophils # 1.6 1.7 Lymphocytes # 0.5 L 0.8 Monocytes # 0.2 L 0.3 Eosinophils # 0.1 0.1 Basophils # 0.0 0.0 Nucleated Red Blood Cells # 0.0 0.0 Sodium Level 139 Potassium Level 3.9 Chloride Level 111 H Carbon Dioxide Level 23 Anion Gap 9 Blood Urea Nitrogen 15 Creatinine 0.88 Glucose Level 109 Calcium Level 7.6 L Total Bilirubin 0.6 Direct Bilirubin 0.00 Indirect Bilirubin 0.6 Aspartate Amino Transf (AST/SGOT) 43 Alanine Aminotransferase (ALT/SGPT) 47 Alkaline Phosphatase 97 Total Protein 6.3 Albumin 2.8 L Globulin 3.50 H Albumin/Globulin Ratio 0.80 Troponin I 1.020 *H Medications Medications Current Medications Brimonidine Tartrate (Alphagan 0.2%) 1 drop Q8 BOTH EYES Last administered on 07/18/17 06:03; Admin Dose 1 DROP; Start 07/14/17 at 14:00 Cyanocobalamin (Vitamin B12) 1,000 mcg DAILY PO Last administered on 09:14; Admin Dose 1,000 MCG; Start 07/15/17 at 09:00 Febuxostat (Uloric) 80 mg DAILY PO Last administered on 07/17/17 09:16; Admin Dose 80 MG; Start 07/14/17 at 13:00 Latanoprost (Xalatan) 1 drop QHS BOTH EYES Last administered on 07/17/17 22: 11; Admin Dose 1 DROP; Start 07/14/17 at 21:00 Metoprolol Tartrate (Lopressor) 25 mg BID PO Last administered on 07/17/17 20 :47; Admin Dose 25 MG; Start 07/14/17 at 13:00 Pregabalin (Lyrica) 50 mg BID PO Last administered on 07/17/17 20:46; Admin Dose 50 MG; Start 07/14/17 at 21:00 Lorazepam (Ativan) 0.25 mg BID PRN PO ANXIETY; Start 07/14/17 at 13:00 Ondansetron HCl (Zofran Inj) 4 mg Q6H PRN IV NAUSEA AND/OR VOMITING; Start 07/14/17 at 13:00 Acetaminophen/ Hydrocodone Bitart ([place] (5/325)) 1 tab Q6H PRN PO MODERATE PAIN LEVEL 4-6 Last administered on 07/15/17 09:57; Admin Dose 1 TAB; Start 07/14/17 at 13:00 Docusate Sodium (Colace) 100 mg Q12H PRN PO CONSTIPATION; Start 07/14/17 at 13: 00 Zolpidem Tartrate (Ambien) 5 mg QHS PRN PO SLEEP; Start 07/14/17 at 13:00 Memantine (Namenda) 5 mg BID PO Last administered on 07/17/17 20:46; Admin Dose 5 MG; Start 07/14/17 at 21:00 Aspirin (Halfprin) 81 mg DAILY PO Last administered on 07/17/17 09:12; Admin Dose 81 MG; Start 07/15/17 at 09:00 Atorvastatin Calcium (Lipitor) 10 mg HS PO Last administered on 07/17/17 20: 46; Admin Dose 10 MG; Start 07/15/17 at 21:00 Neomycin/ Polymyxin/ Bacitracin (Neosporin Topical Oint) 1 applic DAILY TOP Last administered on 07/17/17 09:12; Admin Dose 1 APPLIC; Start 07/15/17 at 11:00 Amoxicillin (Amoxicillin) 500 mg Q8 PO Last administered on 07/18/17 06:03; Admin Dose 500 MG; Start 07/16/17 at 14:00 Losartan Potassium (Cozaar) 50 mg DAILY PO ; Start 07/16/17 at 09:00 Epoetin Rosendo (Epogen (Esrd)) 10,000 units TuThSa@17 SC Last administered on 17:14; Admin Dose 10,000 UNITS; Start 07/17/17 at 17:00 Magnesium Hydroxide (Milk Of Mag) 30 ml BID PRN PO CONSTIPATION Last administered on 07/17/17 11:33; Admin Dose 30 ML; Start 07/17/17 at 10:30 Bisacodyl (Dulcolax Supp) 10 mg DAILY PRN [place] CONSTIPATION; Start 07/17/17 at 10:30 CHERRY JANE MD Jul 18, 2017 09:06
[2017-07-18] MEDS: FEBUXOSTAT 40 MG TABLET PO SCH (09:11)
[2017-07-18] MEDS: CYANOCOBALAMIN 500 MCG TAB PO SCH (09:12)
[2017-07-18] MEDS: PREGABALIN 50 MG CAP PO SCH ×2 (09:12→21:00)
[2017-07-18] MEDS: MEMANTINE 5 MG TAB PO SCH ×2 (09:12→21:15)
[2017-07-18] MEDS: NEOMYC/POLYMYX/BACIT 30 GM OINT TOP SCH (09:13)
[2017-07-18] MEDS: ASPIRIN (EC) 81 MG TAB PO SCH (09:13)
[2017-07-18] MEDS ORDERED: LIDOCAINE 1% (MDV) 20 ML INJ ONE (10:34)
[2017-07-18] MEDS ORDERED: MIDAZOLAM 1 MG/ML 2 ML INJ ONE (10:35)
[2017-07-18] MEDS ORDERED: FENTAnyl 50 MCG/ML VIAL ONE (10:35)
--- NOTE | 2017-07-18 11:52 | RADRPT ---
PROCEDURE: CT GUIDED PERCUTANEOUS BONE MARROW BIOPSY AND ASPIRATION CLINICAL INDICATION: Pancytopenia TECHNIQUE: Informed consent was obtained from the patient following careful explanation of the risks and benefi ts of the procedure. The procedure was performed under general anesthesia. DLP n/a (Thickener Operator CT) CTDIvol n/a (Thickener Operator CT) One or more of the following post reduction techniques were used: - Automated exposure control. - Adjustment of the mA and/or Kv according to patient's size. - Use of iterative reconstruction technique The patient was placed prone on the CT table. Multiple axial CT images through the pelvis were acqui red without contrast. The iliac bone was localized. A site in the patient's back was selected and ma rked. The area was prepped and draped in the usual sterile fashion. 1% lidocaine was utilized. Unde r CT guidance a 11 gauge co-axial core biopsy needle was advanced into the left iliac bone, parallel to the SI joint.. A bone marrow aspirate was obtained. Subsequently the needle was advanced into th e bone and a core bone biopsy was obtained. There were no immediate complications. COMPARISON: none FINDINGS: As above RPTAT: AA IMPRESSION: Uncomplicated CT-guided bone marrow biopsy and aspiration. .Inocencio Pettit MD, MD Date Time Electronically viewed and signed by .Inocencio Pettit MD, on 07/18/2017 11:51 .S/
--- NOTE | 2017-07-18 12:34 | DS ---
DATE OF ADMISSION: 07/14/2017 DATE OF DISCHARGE: HISTORY OF PRESENT ILLNESS AND HOSPITAL COURSE: This 87-year-old man was admitted to the hospital a fter he fell at home. The patient was admitted through the emergency room and he was found on x-ray to have a compression fracture of L1 and possibly L2. An MRI scan was done which showed acute/rece nt mild to moderate L1 vertebral compression fracture without significant retropulsion. Multilevel bilateral foraminal stenosis with impingement of the existing right L4 and left L5 nerve roots as de tailed above. He has multilevel spinal canal stenosis most pronounced at the L4-5 level where there is a broad-based disk bulge with severe spinal canal stenosis. The patient has not complained of a ny back pain. The patient also injured his head when he fell at home. He had a CAT scan of the bra in which was read as showing no acute intracranial hemorrhage, transcortical infarction or mass effe ct. There was moderate ventriculomegaly. This was felt to be possible normal pressure hydrocephalu s. I had the patient evaluated by , who is a neurologist. She did not feel that the mckenzie brito had normal pressure hydrocephalus. He did not have any other symptoms consistent with that disea se. The patient was monitored on telemetry floor while in the hospital. The patient did have eleva haider troponin levels. The patient was seen in consultation by Dr. Kunz, a nip wrapper. Dr. Boris kitchen felt that the patient did have a type 2 NSTEMI. The patient, because of his age and debility, was not a candidate for further cardiac workup. Dr. Prado explained this to the patient and the family and they were comfortable with this. The patient while in the hospital was made a DO NOT RE SUSCITATE and this will be continued on the rehabilitation floor. The patient is also pancytopenic and is being worked up by doctors Mily and Eran, director of product marketing. The patient is to have a bon e marrow aspirate and biopsy today. He will then be transferred to the acute rehab unit. The mckenzie brito is currently getting Procrit to stimulate his bone marrow. He has received several blood transfu sions while in the hospital. The patient was in fair condition at the time of discharge. DISCHARGE MEDICATION: Includes the followin. Amoxicillin 500 mg every 8 hours for another 5 days for urinary tract infection. 2. Aspirin 81 mg a day. 3. Atorvastatin 10 mg a day. 4. Bisacodyl suppository 10 mg a day as needed. 5. Alphagan eye drops. 6. Vitamin B12 1000 mcg a day. 7. Docusate sodium 100 mg twice a day. 8. Epogen 10,000 units 3 times a week. 9. Uloric 80 mg a day. 10. [place] 5/325 q.6h. p.r.n. pain. 11. Latanoprost eyedrops. 12. Lorazepam 0.25 mg twice a day as needed for anxiety. 13. Losartan 50 mg a day. 14. Magnesium hydroxide 30 mg twice a day p.r.n. 15. Namenda 5 mg twice a day. 16. Metoprolol 25 mg twice a day. 17. Neosporin ointment to skin tears. 18. Pregabalin 50 mg twice a day. 19. Zolpidem 5 mg at bedtime for sleep. DISCHARGE DIAGNOSES: 1. Fall at home due to generalized weakness and debility. 2. L1 vertebrae compression fracture. 3. Degenerative disk disease with spinal stenosis. 4. Generalized weakness and debility. 5. Pancytopenia. 6. Hypertension. 7. Cognitive impairment. 8. Urinary tract infection. Dictated By: YANDY MCDERMOTT MD, ND/EARNESTINE Conf#: [id number] DID#: [id number]
--- NOTE | 2017-07-18 16:04 | RADRPT ---
Vent Rate: 63 bpm RR Interval: 0 msec NV Interval: 260 msec QRS Duration: 84 msec QT Interval: 478 msec QTC Interval: 489 msec P-R-T [place]: 56 - 66 - 47 degrees Sinus rhythm with 1st degree AV block ST amp; T wave abnormality, consider anterior ischemia Prolonged QT Abnormal ECG Electronically Signed By: Toni Joyner [id number]
[2017-07-18] MEDS: HYDROCODONE/APAP (5/325) TAB PO PRN (16:13)
[2017-07-18 18:31] LABS: INTRINSIC FACTOR AB NEGATIVE
[2017-07-18] MEDS: LATANOPROST 0.005% 2.5 ML OPH BOTH EYES SCH (21:00)
[2017-07-18] MEDS: ATORVASTATIN 10 MG TAB PO SCH (21:15)
[2017-07-18] MEDS: ACETAMINOPHEN 325 MG TAB PO PRN (21:16)
[2017-07-18] MEDS: CEFTRIAXONE 1 GM/50 ML (PMX) 50 ML IVPB SCH (21:17)
--- NOTE | 2017-07-18 22:21 | RADRPT ---
PROCEDURE: Chest. CLINICAL INDICATION: Fever. TECHNIQUE: Single frontal view of the chest was obtained. COMPARISON: 07/14/2017. FINDINGS: The cardiac silhouette is enlarged. The aortic arch is calcified. There are hazy and patchy opaciti es bilaterally. There are bilateral small pleural effusions. There is no pneumothorax. IMPRESSION: Bilateral hazy and patchy opacities could represent pulmonary edema and/or multifocal pneumonia, new compared with the prior study. Bilateral small pleural effusions, new compared with the prior study. Mild cardiomegaly and aortic atherosclerosis. .Camacho Hanley MD, MD Date Time Electronically viewed and signed by .Camacho Hanley MD, MD on 07/18/2017 22:21 .T/
[2017-07-19] VITALS (12 sets, daily range): BP systolic 93–109; BP diastolic 52–59; PULSE 80–115; RESP 16–18
[2017-07-19] MEDS: BRIMONIDINE 0.2% 5 ML BTL BOTH EYES SCH ×3 (06:08→21:07)
[2017-07-19] MEDS: AMOXICILLIN 500 MG CAP PO SCH ×2 (06:08→13:49)
[2017-07-19] MEDS: METOPROLOL 25 MG TAB PO SCH ×2 (09:00→21:00)
[2017-07-19] MEDS: LOSARTAN 50 MG TAB PO SCH (09:00)
[2017-07-19] MEDS: FEBUXOSTAT 40 MG TABLET PO SCH (09:41)
[2017-07-19] MEDS: PREGABALIN 50 MG CAP PO SCH ×2 (09:42→21:07)
[2017-07-19] MEDS: CYANOCOBALAMIN 500 MCG TAB PO SCH (09:42)
[2017-07-19] MEDS: ASPIRIN (EC) 81 MG TAB PO SCH (09:42)
[2017-07-19] MEDS: MEMANTINE 5 MG TAB PO SCH ×2 (09:42→21:07)
[2017-07-19] MEDS: NEOMYC/POLYMYX/BACIT 30 GM OINT TOP SCH (09:43)
[2017-07-19] MEDS ORDERED: DEXTROSE 5%-0.45% NACL 1,000 ML IV SCH (10:30)
[2017-07-19 10:36] LABS: ABNORMAL IP MESSAGE 1; BASOPHILS % 0.2 % (0.0-2.0); HEMATOCRIT 27.1 % (42.0-52.0); HEMOGLOBIN 8.7 g/dl (14.0-18.0); LYMPHOCYTES # 0.7 10^3/ul (0.8-2.9); LYMPHOCYTES % 12.7 % (15.0-51.0); MEAN CORPUSCULAR HEMOGLOBIN 37.7 pg (29.0-33.0); MEAN CORPUSCULAR HGB CONC 32.1 g/dl (32.0-37.0); MEAN CORPUSCULAR VOLUME 117.3 fl (82.0-101.0); MEAN PLATELET VOLUME 12.5 fl (7.4-10.4); MONOCYTE # 0.4 10^3/ul (0.3-0.9); MONOCYTES % 6.2 % (0.0-11.0); NEUTROPHIL # 4.7 10^3/ul (1.6-7.5); PLATELET COUNT 100 10^3/UL (140-415); POSITIVE DIFF @See below; RED BLOOD COUNT 2.31 10^6/ul (4.70-6.10); WHITE BLOOD COUNT 5.8 10^3/ul (4.8-10.8)
[2017-07-19 10:43] LABS: ALBUMIN 2.5 g/dl (3.3-4.9); ALBUMIN/GLOBULIN RATIO 0.75; BILIRUBIN,INDIRECT 0.7 mg/dl (0-1.1); BILIRUBIN,TOTAL 0.7 mg/dl (0.2-1.3); CALCIUM 7.4 mg/dl (8.4-10.2); CREATININE 1.22 mg/dl (0.61-1.24); POTASSIUM 4.4 mmol/L (3.5-5.1); TOTAL PROTEIN 5.8 g/dl (6.1-8.1)
[2017-07-19] MEDS: LEVOFLOXACIN 500MG/D5W (PMX) 100 ML IVPB SCH (11:46)
--- NOTE | 2017-07-19 11:52 | CONS ---
Date/Time of Note Date/Time of Note DATE: 07/19/17 TIME: 11:51 Consultation Date/Type/Reason Admit Date/Time Jul 14, 2017 at 10:41 Date of Consultation: Jul 19, 2017 Type of Consultation: pulm Hx of Present Illness dictated [id number] fluid overload with pulm edema. decrease iv fluid, administewr lasix, f/u cxr tomorrow. Constitutional: no complaints Eyes: no complaints ENT: no complaints Respiratory: no complaints Cardiovascular: no complaints Gastrointestinal: no complaints Genitourinary: no complaints Skin: no complaints Neurologic: no complaints Psychological: nl mood/affect, no complaints Past Medical History Medical History: high cholesterol, hypertension, other (gout, malnutrition, neuropathy) Past Surgical History Past Surgical Hx: other (orchiectomy) Social History Smoking Status: Former smoker Exam/Review of Systems Vital Signs Vitals Vital Signs Date Time Temp Pulse Resp B/P Pulse Ox O2 Delivery O2 Flow Rate FiO2 07/19/17 11:31 98.0 99 18 97/53 97 07/19/17 02:06 15.0 07/18/17 20:00 Rebreather 07/18/17 19:15 100 Intake and Output 07/18/17 07/18/17 07/19/17 15:00 23:00 07:00 Intake Total 720 ml Balance 720 ml Results Result Diagram: 07/19/17 0532 07/19/17 0532 Results 24 hrs Laboratory Tests Test 07/19/17 05:32 07/19/17 05:46 White Blood Count 5.8 # Red Blood Count 2.31 L Hemoglobin 8.7 L Hematocrit 27.1 L Mean Corpuscular Volume 117.3 H Mean Corpuscular Hemoglobin 37.7 H Mean Corpuscular Hemoglobin Concent 32.1 Red Cell Distribution Width 24.0 H Platelet Count 100 L Mean Platelet Volume 12.5 H Neutrophils % 80.0 H Lymphocytes % 12.7 L Monocytes % 6.2 Eosinophils % 0.0 Basophils % 0.2 Nucleated Red Blood Cells % 0.0 Neutrophils # 4.7 Lymphocytes # 0.7 L Monocytes # 0.4 Eosinophils # 0.0 Basophils # 0.0 Nucleated Red Blood Cells # 0.0 Sodium Level 141 Potassium Level 4.4 Chloride Level 112 H Carbon Dioxide Level 21 Anion Gap 12 Blood Urea Nitrogen 21 H Creatinine 1.22 Glucose Level 75 Calcium Level 7.4 L Total Bilirubin 0.7 Direct Bilirubin 0.00 Indirect Bilirubin 0.7 Aspartate Amino Transf (AST/SGOT) 105 #H Alanine Aminotransferase (ALT/SGPT) 56 Alkaline Phosphatase 124 H B-Type Natriuretic Peptide 20562 H Total Protein 5.8 L Albumin 2.5 L Globulin 3.30 H Albumin/Globulin Ratio 0.75 Lab Scanned Report BLOOD TRANSFUSION Medications Medications Current Medications Brimonidine Tartrate (Alphagan 0.2%) 1 drop Q8 BOTH EYES Last administered on 07/19/17 06:08; Admin Dose 1 DROP; Start 07/14/17 at 14:00 Cyanocobalamin (Vitamin B12) 1,000 mcg DAILY PO Last administered on 09:42; Admin Dose 1,000 MCG; Start 07/15/17 at 09:00 Febuxostat (Uloric) 80 mg DAILY PO Last administered on 07/19/17 09:41; Admin Dose 80 MG; Start 07/14/17 at 13:00 Latanoprost (Xalatan) 1 drop QHS BOTH EYES Last administered on 07/18/17 21: 00; Admin Dose 1 DROP; Start 07/14/17 at 21:00 Metoprolol Tartrate (Lopressor) 25 mg BID PO Last administered on 07/18/17 21 :16; Admin Dose 25 MG; Start 07/14/17 at 13:00 Pregabalin (Lyrica) 50 mg BID PO Last administered on 07/19/17 09:42; Admin Dose 50 MG; Start 07/14/17 at 21:00 Lorazepam (Ativan) 0.25 mg BID PRN PO ANXIETY Last administered on 07/18/17 17:12; Admin Dose 0.25 MG; Start 07/14/17 at 13:00 Ondansetron HCl (Zofran Inj) 4 mg Q6H PRN IV NAUSEA AND/OR VOMITING Last administered on 07/18/17 13:05; Admin Dose 4 MG; Start 07/14/17 at 13:00 Acetaminophen/ Hydrocodone Bitart ([place] (5/325)) 1 tab Q6H PRN PO MODERATE PAIN LEVEL 4-6 Last administered on 07/18/17 16:13; Admin Dose 1 TAB; Start 07/14/17 at 13:00 Docusate Sodium (Colace) 100 mg Q12H PRN PO CONSTIPATION; Start 07/14/17 at 13: 00 Zolpidem Tartrate (Ambien) 5 mg QHS PRN PO SLEEP; Start 07/14/17 at 13:00 Memantine (Namenda) 5 mg BID PO Last administered on 07/19/17 09:42; Admin Dose 5 MG; Start 07/14/17 at 21:00 Aspirin (Halfprin) 81 mg DAILY PO Last administered on 07/19/17 09:42; Admin Dose 81 MG; Start 07/15/17 at 09:00 Atorvastatin Calcium (Lipitor) 10 mg HS PO Last administered on 07/18/17 21: 15; Admin Dose 10 MG; Start 07/15/17 at 21:00 Neomycin/ Polymyxin/ Bacitracin (Neosporin Topical Oint) 1 applic DAILY TOP Last administered on 07/19/17 09:43; Admin Dose 1 APPLIC; Start 07/15/17 at 11:00 Amoxicillin (Amoxicillin) 500 mg Q8 PO Last administered on 07/19/17 06:08; Admin Dose 500 MG; Start 07/16/17 at 14:00 Losartan Potassium (Cozaar) 50 mg DAILY PO ; Start 07/16/17 at 09:00 Epoetin Rosendo (Epogen (Esrd)) 10,000 units TuThSa@17 SC Last administered on 17:14; Admin Dose 10,000 UNITS; Start 07/17/17 at 17:00 Magnesium Hydroxide (Milk Of Mag) 30 ml BID PRN PO CONSTIPATION Last administered on 07/17/17 11:33; Admin Dose 30 ML; Start 07/17/17 at 10:30 Bisacodyl (Dulcolax Supp) 10 mg DAILY PRN [place] CONSTIPATION; Start 07/17/17 at 10:30 Acetaminophen 650 mg 650 mg Q6H PRN PO PAIN AND OR ELEVATED TEMP Last administered on 07/18/17 21:16; Admin Dose 650 MG; Start 07/18/17 at 20:30 Ceftriaxone Sodium 50 ml @ 100 mls/hr Q24H IVPB Last administered on 21:17; Admin Dose 100 MLS/HR; Start 07/18/17 at 20:30 Levofloxacin/ Dextrose 100 ml @ 100 mls/hr Q24H IVPB ; Start 07/19/17 at 11:00 Dextrose/Sodium Chloride (D5-1/2ns) 1,000 ml @ 80 mls/hr [id number] IV ; Start at 10:30 REECE VELOZ Jul 19, 2017 11:52
[2017-07-19] MEDS: DEXTROSE 5%-0.45% NACL 1,000 ML IV SCH (12:57)
[2017-07-19] MEDS: FUROSEMIDE 20 MG INJ IV SCH (12:59)
--- NOTE | 2017-07-19 16:29 | PN ---
Date/Time of Note Date/Time of Note DATE: 07/19/17 TIME: 16:14 Assessment/Plan VTE Prophylaxis VTE Prophylaxis Intervention: SCD's Lines/Catheters IV [facility]from [facility] Saline Lock Urinary Cath still in place: No Assessment/Plan Chief Complaint/Hosp Course 1. he had an episode of SOB and hypoxia last night . He is on a non re breather mask now . His CXR shows bilateral infiltrates , CHF vs pneumonia . He is on lasix , levaquin and ceftriaxone . 2. Pancytopenia . Hematology w/u is in progress , He had a blood transfusion 2 days ago . He had a bone marrow aspirate and biopsy yesterday . 3. hypertension , BP is lower , he is off BP meds . 4. dilated ventricles on CT scan , r/o Normal pressure hydrocephalus . Neuro does not think patient has a normal pressure hydrocephalus . 5. lumbar spine fractures , 1 of the lumbar spine fracture is acute. He also has some lumbar disc disease with stenosis. He is not complaining of pain. 6. He has a urinary tract infection . Problems: Subjective 24 Hr Interval Summary Free Text/Dictation He is sleeping but rouses easily to verbal stimuli . He is responsive and oriented .He had an episode of SOB yesterday after having a bone marrow aspirate and biopsy yesterday . He denies pain or SOB now . Constitutional: no complaints Eyes: no complaints Respiratory: no complaints Cardiovascular: no complaints Gastrointestinal: no complaints Genitourinary: no complaints Musculoskeletal: no complaints Exam/Review of Systems Vital Signs Vitals Vital Signs Date Time Temp Pulse Resp B/P Pulse Ox O2 Delivery O2 Flow Rate FiO2 07/19/17 15:47 98.4 107 18 109/58 98 07/19/17 08:00 Rebreather 10.0 07/18/17 19:15 100 Intake and Output 07/18/17 07/18/17 07/19/17 15:00 23:00 07:00 Intake Total 720 ml Balance 720 ml Exam Constitutional: alert, frail, oriented Psych: no complaints Respiratory: clear to auscultation, diminished breath sounds Cardiovascular: regular rate and rhythm Gastrointestinal: soft Musculoskeletal: nl extremities to inspection Results Result Diagram: 07/19/17 0532 07/19/17 0532 Results 24 hrs Laboratory Tests Test 07/19/17 05:32 07/19/17 05:46 White Blood Count 5.8 # Red Blood Count 2.31 L Hemoglobin 8.7 L Hematocrit 27.1 L Mean Corpuscular Volume 117.3 H Mean Corpuscular Hemoglobin 37.7 H Mean Corpuscular Hemoglobin Concent 32.1 Red Cell Distribution Width 24.0 H Platelet Count 100 L Mean Platelet Volume 12.5 H Neutrophils % 80.0 H Lymphocytes % 12.7 L Monocytes % 6.2 Eosinophils % 0.0 Basophils % 0.2 Nucleated Red Blood Cells % 0.0 Neutrophils # 4.7 Lymphocytes # 0.7 L Monocytes # 0.4 Eosinophils # 0.0 Basophils # 0.0 Nucleated Red Blood Cells # 0.0 Sodium Level 141 Potassium Level 4.4 Chloride Level 112 H Carbon Dioxide Level 21 Anion Gap 12 Blood Urea Nitrogen 21 H Creatinine 1.22 Glucose Level 75 Calcium Level 7.4 L Total Bilirubin 0.7 Direct Bilirubin 0.00 Indirect Bilirubin 0.7 Aspartate Amino Transf (AST/SGOT) 105 #H Alanine Aminotransferase (ALT/SGPT) 56 Alkaline Phosphatase 124 H B-Type Natriuretic Peptide 79489 H Total Protein 5.8 L Albumin 2.5 L Globulin 3.30 H Albumin/Globulin Ratio 0.75 Lab Scanned Report BLOOD TRANSFUSION Medications Medications Current Medications Brimonidine Tartrate (Alphagan 0.2%) 1 drop Q8 BOTH EYES Last administered on 07/19/17 13:50; Admin Dose 1 DROP; Start 07/14/17 at 14:00 Cyanocobalamin (Vitamin B12) 1,000 mcg DAILY PO Last administered on 09:42; Admin Dose 1,000 MCG; Start 07/15/17 at 09:00 Febuxostat (Uloric) 80 mg DAILY PO Last administered on 07/19/17 09:41; Admin Dose 80 MG; Start 07/14/17 at 13:00 Latanoprost (Xalatan) 1 drop QHS BOTH EYES Last administered on 07/18/17 21: 00; Admin Dose 1 DROP; Start 07/14/17 at 21:00 Metoprolol Tartrate (Lopressor) 25 mg BID PO Last administered on 07/18/17 21 :16; Admin Dose 25 MG; Start 07/14/17 at 13:00 Pregabalin (Lyrica) 50 mg BID PO Last administered on 07/19/17 09:42; Admin Dose 50 MG; Start 07/14/17 at 21:00 Lorazepam (Ativan) 0.25 mg BID PRN PO ANXIETY Last administered on 07/18/17 17:12; Admin Dose 0.25 MG; Start 07/14/17 at 13:00 Ondansetron HCl (Zofran Inj) 4 mg Q6H PRN IV NAUSEA AND/OR VOMITING Last administered on 07/18/17 13:05; Admin Dose 4 MG; Start 07/14/17 at 13:00 Acetaminophen/ Hydrocodone Bitart ([place] (5/325)) 1 tab Q6H PRN PO MODERATE PAIN LEVEL 4-6 Last administered on 07/18/17 16:13; Admin Dose 1 TAB; Start 07/14/17 at 13:00 Docusate Sodium (Colace) 100 mg Q12H PRN PO CONSTIPATION; Start 07/14/17 at 13: 00 Zolpidem Tartrate (Ambien) 5 mg QHS PRN PO SLEEP; Start 07/14/17 at 13:00 Memantine (Namenda) 5 mg BID PO Last administered on 07/19/17 09:42; Admin Dose 5 MG; Start 07/14/17 at 21:00 Aspirin (Halfprin) 81 mg DAILY PO Last administered on 07/19/17 09:42; Admin Dose 81 MG; Start 07/15/17 at 09:00 Atorvastatin Calcium (Lipitor) 10 mg HS PO Last administered on 07/18/17 21: 15; Admin Dose 10 MG; Start 07/15/17 at 21:00 Neomycin/ Polymyxin/ Bacitracin (Neosporin Topical Oint) 1 applic DAILY TOP Last administered on 07/19/17 09:43; Admin Dose 1 APPLIC; Start 07/15/17 at 11:00 Amoxicillin (Amoxicillin) 500 mg Q8 PO Last administered on 07/19/17 13:49; Admin Dose 500 MG; Start 07/16/17 at 14:00 Losartan Potassium (Cozaar) 50 mg DAILY PO ; Start 07/16/17 at 09:00 Epoetin Rosendo (Epogen (Esrd)) 10,000 units TuThSa@17 SC Last administered on 17:14; Admin Dose 10,000 UNITS; Start 07/17/17 at 17:00 Magnesium Hydroxide (Milk Of Mag) 30 ml BID PRN PO CONSTIPATION Last administered on 07/17/17 11:33; Admin Dose 30 ML; Start 07/17/17 at 10:30 Bisacodyl (Dulcolax Supp) 10 mg DAILY PRN [place] CONSTIPATION; Start 07/17/17 at 10:30 Acetaminophen 650 mg 650 mg Q6H PRN PO PAIN AND OR ELEVATED TEMP Last administered on 07/18/17 21:16; Admin Dose 650 MG; Start 07/18/17 at 20:30 Ceftriaxone Sodium 50 ml @ 100 mls/hr Q24H IVPB Last administered on 21:17; Admin Dose 100 MLS/HR; Start 07/18/17 at 20:30 Levofloxacin/ Dextrose 100 ml @ 100 mls/hr Q24H IVPB Last administered on 11:46; Admin Dose 100 MLS/HR; Start 07/19/17 at 11:00 Dextrose/Sodium Chloride (D5-1/2ns) 1,000 ml @ 20 mls/hr Q24H IV Last administered on 07/19/17 12:57; Admin Dose 20 MLS/HR; Start 07/19/17 at 12:00 YANDY MCDERMOTT MD Jul 19, 2017 16:28
--- NOTE | 2017-07-19 17:45 | PN ---
Date/Time of Note Date/Time of Note DATE: 07/19/17 TIME: 17:42 Assessment/Plan VTE Prophylaxis VTE Prophylaxis Intervention: other Lines/Catheters IV Catheter Type (from [facility]): Saline Lock Urinary Cath still in place: No Assessment/Plan Chief Complaint/Hosp Course 87 year old male with: 1. Pancytopenia. B12 level is previously normal, but it is borderline this admit. Continue B12, may benefit from IM instead. Bone marrow done, results pending. 2. Acute dyspnea and oxygen desaturation. CXR suggests pulmonary edema or new bilateral PNA. BNP is very high. On diuresis and antibiotics. Will follow. Problems: Subjective 24 Hr Interval Summary Free Text/Dictation He is very short of breath since last night and does not feel good. So far, not improved today. No other c/o. No fever. Exam/Review of Systems Vital Signs Vitals Vital Signs Date Time Temp Pulse Resp B/P Pulse Ox O2 Delivery O2 Flow Rate FiO2 07/19/17 16:13 97 07/19/17 15:47 98.4 18 109/58 98 07/19/17 08:00 Rebreather 10.0 07/18/17 19:15 100 Intake and Output 07/18/17 07/18/17 07/19/17 15:00 23:00 07:00 Intake Total 720 ml Balance 720 ml Exam Elderly male, seems comfortable on non rebreather mask. No LAD Chest - actually clear anteriorly with no wheeze or rales. Heart - regular Abd - distended, non tender. Ext - thin, no edema, non tender. Results Result Diagram: 07/19/17 0532 07/19/17 0532 Results 24 hrs Laboratory Tests Test 07/19/17 05:32 07/19/17 05:46 White Blood Count 5.8 # Red Blood Count 2.31 L Hemoglobin 8.7 L Hematocrit 27.1 L Mean Corpuscular Volume 117.3 H Mean Corpuscular Hemoglobin 37.7 H Mean Corpuscular Hemoglobin Concent 32.1 Red Cell Distribution Width 24.0 H Platelet Count 100 L Mean Platelet Volume 12.5 H Neutrophils % 80.0 H Lymphocytes % 12.7 L Monocytes % 6.2 Eosinophils % 0.0 Basophils % 0.2 Nucleated Red Blood Cells % 0.0 Neutrophils # 4.7 Lymphocytes # 0.7 L Monocytes # 0.4 Eosinophils # 0.0 Basophils # 0.0 Nucleated Red Blood Cells # 0.0 Sodium Level 141 Potassium Level 4.4 Chloride Level 112 H Carbon Dioxide Level 21 Anion Gap 12 Blood Urea Nitrogen 21 H Creatinine 1.22 Glucose Level 75 Calcium Level 7.4 L Total Bilirubin 0.7 Direct Bilirubin 0.00 Indirect Bilirubin 0.7 Aspartate Amino Transf (AST/SGOT) 105 #H Alanine Aminotransferase (ALT/SGPT) 56 Alkaline Phosphatase 124 H B-Type Natriuretic Peptide 03769 H Total Protein 5.8 L Albumin 2.5 L Globulin 3.30 H Albumin/Globulin Ratio 0.75 Lab Scanned Report BLOOD TRANSFUSION Medications Medications Current Medications Brimonidine Tartrate (Alphagan 0.2%) 1 drop Q8 BOTH EYES Last administered on 07/19/17 13:50; Admin Dose 1 DROP; Start 07/14/17 at 14:00 Cyanocobalamin (Vitamin B12) 1,000 mcg DAILY PO Last administered on 09:42; Admin Dose 1,000 MCG; Start 07/15/17 at 09:00 Febuxostat (Uloric) 80 mg DAILY PO Last administered on 07/19/17 09:41; Admin Dose 80 MG; Start 07/14/17 at 13:00 Latanoprost (Xalatan) 1 drop QHS BOTH EYES Last administered on 07/18/17 21: 00; Admin Dose 1 DROP; Start 07/14/17 at 21:00 Metoprolol Tartrate (Lopressor) 25 mg BID PO Last administered on 07/18/17 21 :16; Admin Dose 25 MG; Start 07/14/17 at 13:00 Pregabalin (Lyrica) 50 mg BID PO Last administered on 07/19/17 09:42; Admin Dose 50 MG; Start 07/14/17 at 21:00 Lorazepam (Ativan) 0.25 mg BID PRN PO ANXIETY Last administered on 07/18/17 17:12; Admin Dose 0.25 MG; Start 07/14/17 at 13:00 Ondansetron HCl (Zofran Inj) 4 mg Q6H PRN IV NAUSEA AND/OR VOMITING Last administered on 07/18/17 13:05; Admin Dose 4 MG; Start 07/14/17 at 13:00 Acetaminophen/ Hydrocodone Bitart ([place] (5/325)) 1 tab Q6H PRN PO MODERATE PAIN LEVEL 4-6 Last administered on 07/18/17 16:13; Admin Dose 1 TAB; Start 07/14/17 at 13:00 Docusate Sodium (Colace) 100 mg Q12H PRN PO CONSTIPATION; Start 07/14/17 at 13: 00 Zolpidem Tartrate (Ambien) 5 mg QHS PRN PO SLEEP; Start 07/14/17 at 13:00 Memantine (Namenda) 5 mg BID PO Last administered on 07/19/17 09:42; Admin Dose 5 MG; Start 07/14/17 at 21:00 Aspirin (Halfprin) 81 mg DAILY PO Last administered on 07/19/17 09:42; Admin Dose 81 MG; Start 07/15/17 at 09:00 Atorvastatin Calcium (Lipitor) 10 mg HS PO Last administered on 07/18/17 21: 15; Admin Dose 10 MG; Start 07/15/17 at 21:00 Neomycin/ Polymyxin/ Bacitracin (Neosporin Topical Oint) 1 applic DAILY TOP Last administered on 07/19/17 09:43; Admin Dose 1 APPLIC; Start 07/15/17 at 11:00 Losartan Potassium (Cozaar) 50 mg DAILY PO ; Start 07/16/17 at 09:00 Epoetin Rosendo (Epogen (Esrd)) 10,000 units TuThSa@17 SC Last administered on 17:14; Admin Dose 10,000 UNITS; Start 07/17/17 at 17:00 Magnesium Hydroxide (Milk Of Mag) 30 ml BID PRN PO CONSTIPATION Last administered on 07/17/17 11:33; Admin Dose 30 ML; Start 07/17/17 at 10:30 Bisacodyl (Dulcolax Supp) 10 mg DAILY PRN [place] CONSTIPATION; Start 07/17/17 at 10:30 Acetaminophen 650 mg 650 mg Q6H PRN PO PAIN AND OR ELEVATED TEMP Last administered on 07/18/17 21:16; Admin Dose 650 MG; Start 07/18/17 at 20:30 Ceftriaxone Sodium 50 ml @ 100 mls/hr Q24H IVPB Last administered on 21:17; Admin Dose 100 MLS/HR; Start 07/18/17 at 20:30 Levofloxacin/ Dextrose 100 ml @ 100 mls/hr Q24H IVPB Last administered on 11:46; Admin Dose 100 MLS/HR; Start 07/19/17 at 11:00 Dextrose/Sodium Chloride (D5-1/2ns) 1,000 ml @ 20 mls/hr Q24H IV Last administered on 07/19/17 12:57; Admin Dose 20 MLS/HR; Start 07/19/17 at 12:00 SOLEDAD SCHROEDER MD Jul 19, 2017 17:45
[2017-07-19] MEDS: EPOETIN 10000 UNITS/1 ML INJ (ESRD) SC SCH (18:25)
[2017-07-19] MEDS: LATANOPROST 0.005% 2.5 ML OPH BOTH EYES SCH (21:00)
[2017-07-19] MEDS: ATORVASTATIN 10 MG TAB PO SCH (21:07)
[2017-07-19] MEDS: CEFTRIAXONE 1 GM/50 ML (PMX) 50 ML IVPB SCH (21:08)
[2017-07-20] VITALS (12 sets, daily range): BP systolic 91–111; BP diastolic 50–58; PULSE 62–107; RESP 18
[2017-07-20] MEDS: ACETAMINOPHEN 325 MG TAB PO PRN ×2 (04:05→22:06)
--- NOTE | 2017-07-20 05:43 | CONS ---
DATE OF ADMISSION: 07/14/2017 DATE OF CONSULTATION: 07/19/2017 REFERRING PHYSICIAN: Dr. Varun Avelar. REASON FOR REFERRAL: Evaluation of shortness of breath. HISTORY OF PRESENT ILLNESS: Mr. Hanna is a pleasant 87-year-old white male who was admitted on the of this month after sustaining a fall. Patient started complaining of back pain and was noted to have significant anemia. The patient underwent bone marrow biopsy yesterday. The patient has been requiring high FIO2 for O2 saturation maintenance and currently on 100% nonrebreather mask. The patient, however, himself denies any shortness of breath, any chest pain, abdominal pain, nausea, vomiting. The patient was quite lucid and was able to give a meaningful history by himself. Patient has been complaining of generalized weakness. PAST MEDICAL HISTORY: 1. Gout. 2. Hyperlipidemia. 3. Hypertension. 4. History of thrombocytopenia. 5. Neuropathy. 6. MDS. 7. Vasectomy. 8. Mastoidectomy 9. History of left testicle resection. MEDICATIONS: Currently in hospital: 1. Rocephin 1 gram IV daily. 2. Levaquin 500 mg daily. 3. Acetaminophen on a p.r.n. basis. 4. Amoxicillin 500 mg q.8 hours. 5. Aspirin 81 mg a day. 6. Atorvastatin 10 mg a day. 7. Alphagan eyedrops. 8. Colace 100 mg b.i.d. p.r.n. 9. Epoetin 10,000 units was given x1 the day before yesterday. 10. Uloric 80 mg daily. 11. Hydrocodone on a p.r.n. basis. 12. Latanoprost eyedrops. 13. Cozaar 50 mg a day. 14. Namenda 5 mg a day. 15. Metoprolol 25 mg b.i.d. 16. Zofran on a p.r.n. basis. 17. Lyrica 50 mg b.i.d. ALLERGIES: NONE. SOCIAL HISTORY: The patient has a remote history of smoking. He quit 30 to 40 years ago, was a scant smoker. No history of alcohol or drug abuse. FAMILY HISTORY: He is . He has 4 children. No history of any illnesses in the family. 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 REVIEW OF SYSTEMS: Denies any headache, visual changes, seizures, dysphagia, odynophagia, sore throat, chest pain, angina, wheezing, cough, sputum production. Denies any nausea, vomiting, melena. Complains of mid back pain. PHYSICAL EXAMINATION: GENERAL: Elderly male, awake, alert, currently in no distress. VITAL SIGNS: Temperature 98 degrees Fahrenheit, respiratory rate is 18 per minute, heart rate 98 per minute, blood pressure is 98/54, O2 sat 97%. HEENT: Supple neck, no JVD, no lymphadenopathy, midline trachea, no thyromegaly. Pharynx is clear, no neck bruits. Patient does have multiple dental caps. Pupils are small bilaterally with bilateral intraocular lens implants. CHEST: Clear to auscultation. HEART: S1, S2 audible. No murmurs, regular rhythm. ABDOMEN: Soft, nontender, nondistended. Bowel sounds audible. EXTREMITIES: No peripheral edema. Pulses 1+ bilaterally. NEUROLOGIC EXAM, no focal deficit. LABORATORY DATA: From admission, white count 2.7, hemoglobin 7.8, platelet count of 104. Labs from today, white count is 5.8, hemoglobin 8.7, platelet count of 100,000. Sodium from today 141, potassium 4.4, chloride 112, bicarbonate 21, BUN 21, creatinine 1.2. IMAGING: Chest x-ray was reviewed from yesterday, which is showing mild pulmonary edema. Chest x-ray also was reviewed from the 9th of this month, which is showing mild cardiomegaly. The patient had a bone marrow biopsy done yesterday; the results are pending. ASSESSMENT AND RECOMMENDATIONS: 1. The patient admitted due to a fall, with discovery of pancytopenia, likely from underlying myelodysplastic syndrome, status post bone marrow biopsy. 2. Chest x-ray findings are indicative of mild pulmonary edema. 3. History of hypertension. 4. Restless legs syndrome. 5. Glaucoma. RECOMMENDATIONS: Administer Lasix 20 mg q 12 hours for 3-4 doses. Obtain followup chest x-ray in 24 hours. Continue supplemental oxygen. Decrease IV fluids to KVO. Dictated By: REECE SOTO/NTS Conf#: [id number] DID#: [id number] [facility]
[2017-07-20] MEDS: BRIMONIDINE 0.2% 5 ML BTL BOTH EYES SCH ×3 (05:47→22:05)
[2017-07-20] MEDS: FUROSEMIDE 20 MG INJ IV SCH ×2 (05:52→17:34)
[2017-07-20 06:39] LABS: ABNORMAL IP MESSAGE 1; BASOPHILS % 0.2 % (0.0-2.0); EOSINOPHILS % 0.2 % (0.0-7.0); HEMATOCRIT 25.1 % (42.0-52.0); HEMOGLOBIN 7.8 g/dl (14.0-18.0); LYMPHOCYTES # 0.6 10^3/ul (0.8-2.9); LYMPHOCYTES % 11.2 % (15.0-51.0); MEAN CORPUSCULAR HEMOGLOBIN 35.3 pg (29.0-33.0); MEAN CORPUSCULAR HGB CONC 31.1 g/dl (32.0-37.0); MEAN CORPUSCULAR VOLUME 113.6 fl (82.0-101.0); MEAN PLATELET VOLUME 12.3 fl (7.4-10.4); MONOCYTE # 0.4 10^3/ul (0.3-0.9); MONOCYTES % 7.7 % (0.0-11.0); NEUTROPHIL # 4.1 10^3/ul (1.6-7.5); NEUTROPHILS % 79.7 % (39.0-77.0); PLATELET COUNT 80 10^3/UL (140-415); POSITIVE DIFF @See below; RED BLOOD COUNT 2.21 10^6/ul (4.70-6.10); RED CELL DISTRIBUTION WIDTH 22.5 % (11.5-14.5); WHITE BLOOD COUNT 5.2 10^3/ul (4.8-10.8)
[2017-07-20 07:10] LABS: ALBUMIN 2.6 g/dl (3.3-4.9); ALBUMIN/GLOBULIN RATIO 0.72; BILIRUBIN,INDIRECT 0.6 mg/dl (0-1.1); BILIRUBIN,TOTAL 0.6 mg/dl (0.2-1.3); CALCIUM 7.7 mg/dl (8.4-10.2); CREATININE 1.16 mg/dl (0.61-1.24); TOTAL PROTEIN 6.2 g/dl (6.1-8.1)
[2017-07-20] MEDS: METOPROLOL 25 MG TAB PO SCH ×2 (09:00→22:05)
[2017-07-20] MEDS: LOSARTAN 50 MG TAB PO SCH (09:00)
[2017-07-20] MEDS: CYANOCOBALAMIN 500 MCG TAB PO SCH (09:14)
[2017-07-20] MEDS: PREGABALIN 50 MG CAP PO SCH ×2 (09:14→22:04)
[2017-07-20] MEDS: MEMANTINE 5 MG TAB PO SCH ×2 (09:14→21:00)
[2017-07-20] MEDS: FEBUXOSTAT 40 MG TABLET PO SCH (09:14)
[2017-07-20] MEDS: ASPIRIN (EC) 81 MG TAB PO SCH (09:15)
[2017-07-20] MEDS: NEOMYC/POLYMYX/BACIT 30 GM OINT TOP SCH (09:17)
[2017-07-20] MEDS: LEVOFLOXACIN 500MG/D5W (PMX) 100 ML IVPB SCH (11:15)
--- NOTE | 2017-07-20 11:50 | CONS ---
Date/Time of Note Date/Time of Note DATE: 07/20/17 TIME: 11:48 Assessment/Plan Assessment/Plan Chief Complaint/Hosp Course dictated [id number] fluid overload with pulm edema. decrease iv fluid, administewr lasix, f/u cxr tomorrow. Problems: Additional Assessment/Plan Assessment and recommendations; 1. Patient admitted due to a fall with a history of pancytopenia due to myelodysplastic syndrome. Status post bone marrow biopsy. 2. Patient developed shortness of breath is likely is from noncardiogenic pulmonary edema from mild fluid overload. Started on Lasix yesterday. Patient reports decreased shortness of breath now. 3. History of hypertension. 4. Preserved systolic function. Continue current treatment. Awaiting chest x-ray. I had a detailed discussion the patient's son at bedside and answered all his questions. Consultation Date/Type/Reason Admit Date/Time Jul 14, 2017 at 10:41 Initial Consult Date 07/19/17 Type of Consultation: pulm Referring Provider: YANDY MCDERMOTT MD 24 HR Interval Summary Free Text/Dictation Patient's condition is improving. He reports decreased shortness of breath. Denies any chest pain. General exam; elderly male, awake and alert. Currently in no distress. Exam/Review of Systems Vital Signs Vitals Vital Signs Date Time Temp Pulse Resp B/P Pulse Ox O2 Delivery O2 Flow Rate FiO2 07/20/17 11:29 98.6 85 18 101/57 97 07/20/17 00:40 15.0 100 07/19/17 20:00 Nasal Cannula Intake and Output 07/19/17 07/19/17 07/20/17 15:00 23:00 07:00 Intake Total 500 ml 670 ml 470 ml Output Total 600 ml 600 ml Balance 500 ml 70 ml -130 ml Exam HEENT exam; supple neck, no JVD. No lymphadenopathy. Midline trachea. No thyromegaly. Chest exam; clear to auscultation. S1-S2 audible, no murmurs. Regular rhythm. Abdomen exam; soft, scaphoid. No organomegaly. Bowel sounds audible. Nontender. Extremity exam; no peripheral edema. SHIRT CLOSER exam; no focal deficit. Results Result Diagram: 07/20/17 0532 07/20/17 0532 Results 24 hrs Laboratory Tests Test 07/20/17 05:32 White Blood Count 5.2 Red Blood Count 2.21 L Hemoglobin 7.8 L Hematocrit 25.1 L Mean Corpuscular Volume 113.6 H Mean Corpuscular Hemoglobin 35.3 H Mean Corpuscular Hemoglobin Concent 31.1 L Red Cell Distribution Width 22.5 H Platelet Count 80 L Mean Platelet Volume 12.3 H Neutrophils % 79.7 H Lymphocytes % 11.2 L Monocytes % 7.7 Eosinophils % 0.2 Basophils % 0.2 Nucleated Red Blood Cells % 0.0 Neutrophils # 4.1 Lymphocytes # 0.6 L Monocytes # 0.4 Eosinophils # 0.0 Basophils # 0.0 Nucleated Red Blood Cells # 0.0 Sodium Level 139 Potassium Level 4.0 Chloride Level 109 Carbon Dioxide Level 21 Anion Gap 13 Blood Urea Nitrogen 24 H Creatinine 1.16 Glucose Level 84 Calcium Level 7.7 L Total Bilirubin 0.6 Direct Bilirubin 0.00 Indirect Bilirubin 0.6 Aspartate Amino Transf (AST/SGOT) 75 H Alanine Aminotransferase (ALT/SGPT) 53 Alkaline Phosphatase 101 Total Protein 6.2 Albumin 2.6 L Globulin 3.60 H Albumin/Globulin Ratio 0.72 Medications Medications Current Medications Brimonidine Tartrate (Alphagan 0.2%) 1 drop Q8 BOTH EYES Last administered on 07/20/17 05:47; Admin Dose 1 DROP; Start 07/14/17 at 14:00 Cyanocobalamin (Vitamin B12) 1,000 mcg DAILY PO Last administered on 09:14; Admin Dose 1,000 MCG; Start 07/15/17 at 09:00 Febuxostat (Uloric) 80 mg DAILY PO Last administered on 07/20/17 09:14; Admin Dose 80 MG; Start 07/14/17 at 13:00 Latanoprost (Xalatan) 1 drop QHS BOTH EYES Last administered on 07/18/17 21: 00; Admin Dose 1 DROP; Start 07/14/17 at 21:00 Metoprolol Tartrate (Lopressor) 25 mg BID PO Last administered on 07/18/17 21 :16; Admin Dose 25 MG; Start 07/14/17 at 13:00 Pregabalin (Lyrica) 50 mg BID PO Last administered on 07/20/17 09:14; Admin Dose 50 MG; Start 07/14/17 at 21:00 Lorazepam (Ativan) 0.25 mg BID PRN PO ANXIETY Last administered on 07/18/17 17:12; Admin Dose 0.25 MG; Start 07/14/17 at 13:00 Ondansetron HCl (Zofran Inj) 4 mg Q6H PRN IV NAUSEA AND/OR VOMITING Last administered on 07/18/17 13:05; Admin Dose 4 MG; Start 07/14/17 at 13:00 Acetaminophen/ Hydrocodone Bitart ([place] (5/325)) 1 tab Q6H PRN PO MODERATE PAIN LEVEL 4-6 Last administered on 07/18/17 16:13; Admin Dose 1 TAB; Start 07/14/17 at 13:00 Docusate Sodium (Colace) 100 mg Q12H PRN PO CONSTIPATION; Start 07/14/17 at 13: 00 Zolpidem Tartrate (Ambien) 5 mg QHS PRN PO SLEEP; Start 07/14/17 at 13:00 Memantine (Namenda) 5 mg BID PO Last administered on 07/20/17 09:14; Admin Dose 5 MG; Start 07/14/17 at 21:00 Aspirin (Halfprin) 81 mg DAILY PO Last administered on 07/20/17 09:15; Admin Dose 81 MG; Start 07/15/17 at 09:00 Atorvastatin Calcium (Lipitor) 10 mg HS PO Last administered on 07/19/17 21: 07; Admin Dose 10 MG; Start 07/15/17 at 21:00 Neomycin/ Polymyxin/ Bacitracin (Neosporin Topical Oint) 1 applic DAILY TOP Last administered on 07/20/17 09:17; Admin Dose 1 APPLIC; Start 07/15/17 at 11:00 Losartan Potassium (Cozaar) 50 mg DAILY PO ; Start 07/16/17 at 09:00 Epoetin Rosendo (Epogen (Esrd)) 10,000 units TuThSa@17 SC Last administered on 18:25; Admin Dose 10,000 UNITS; Start 07/17/17 at 17:00 Magnesium Hydroxide (Milk Of Mag) 30 ml BID PRN PO CONSTIPATION Last administered on 07/17/17 11:33; Admin Dose 30 ML; Start 07/17/17 at 10:30 Bisacodyl (Dulcolax Supp) 10 mg DAILY PRN [place] CONSTIPATION; Start 07/17/17 at 10:30 Acetaminophen 650 mg 650 mg Q6H PRN PO PAIN AND OR ELEVATED TEMP Last administered on 07/20/17 04:05; Admin Dose 650 MG; Start 07/18/17 at 20:30 Ceftriaxone Sodium 50 ml @ 100 mls/hr Q24H IVPB Last administered on 21:08; Admin Dose 100 MLS/HR; Start 07/18/17 at 20:30 Levofloxacin/ Dextrose 100 ml @ 100 mls/hr Q24H IVPB Last administered on 11:15; Admin Dose 100 MLS/HR; Start 07/19/17 at 11:00 Dextrose/Sodium Chloride (D5-1/2ns) 1,000 ml @ 20 mls/hr Q24H IV Last administered on 07/19/17 12:57; Admin Dose 20 MLS/HR; Start 07/19/17 at 12:00 REECE VELOZ Jul 20, 2017 11:50
--- NOTE | 2017-07-20 11:52 | RADRPT ---
PROCEDURE: XR Chest 1 view. CLINICAL INDICATION: Shortness of breath. TECHNIQUE: AP views of the chest were obtained. COMPARISON: July 18, 2017 FINDINGS: The heart is large. Calcified atherosclerosis is noted in the aorta. Central pulmonary vascular ing estion and interstitial prominence in both lungs is unchanged. Patchy infiltrates throughout both jose ngs, combined with small pleural effusions are stable, given differences in technique Osseous struc tures are intact. IMPRESSION: Cardiomegaly with calcified atherosclerosis in the aorta. Stable central pulmonary vascular congestion and mild interstitial prominence in both lungs. Able infiltrates in both lungs, combined with small pleural effusions. RPTAT: AA .Dave Rosenthal MD, MD Date Time Electronically viewed and signed by .Dave Rosenthal MD, MD on 07/20/2017 11:52 .P/
[2017-07-20] MEDS: DEXTROSE 5%-0.45% NACL 1,000 ML IV SCH (12:00)
--- NOTE | 2017-07-20 13:51 | PN ---
Date/Time of Note Date/Time of Note DATE: 07/20/17 TIME: 13:48 Assessment/Plan VTE Prophylaxis VTE Prophylaxis Intervention: contraindicated Lines/Catheters IV Catheter Type (from [facility]): Saline Lock Urinary Cath still in place: No Assessment/Plan Chief Complaint/Hosp Course 87 year old male with: 1. Pancytopenia. B12 level is previously normal, but it is borderline this admit. Continue B12, may benefit from IM instead. Bone marrow done, results pending. 2. Acute dyspnea and oxygen desaturation. CXR suggests pulmonary edema and had very high BNP. He is on diuretics and feels better today. Will follow. Problems: Subjective 24 Hr Interval Summary Free Text/Dictation He is the same. Denies shortness of breath, but still dependent on non rebreather mask. No bleeding. Exam/Review of Systems Vital Signs Vitals Vital Signs Date Time Temp Pulse Resp B/P Pulse Ox O2 Delivery O2 Flow Rate FiO2 07/20/17 12:10 104 07/20/17 11:29 98.6 18 101/57 97 07/20/17 08:00 Non Rebreather 10.0 07/20/17 00:40 100 Intake and Output 07/19/17 07/19/17 07/20/17 15:00 23:00 07:00 Intake Total 500 ml 670 ml 470 ml Output Total 600 ml 600 ml Balance 500 ml 70 ml -130 ml Exam Elderly male, weak appearing on non rebreather mask. NAD. Decreased bs at bases, no wheeze, no rales. Abd soft non tender. No edema. Results Result Diagram: 07/20/17 0532 07/20/17 0532 Results 24 hrs Laboratory Tests Test 07/20/17 05:32 White Blood Count 5.2 Red Blood Count 2.21 L Hemoglobin 7.8 L Hematocrit 25.1 L Mean Corpuscular Volume 113.6 H Mean Corpuscular Hemoglobin 35.3 H Mean Corpuscular Hemoglobin Concent 31.1 L Red Cell Distribution Width 22.5 H Platelet Count 80 L Mean Platelet Volume 12.3 H Neutrophils % 79.7 H Lymphocytes % 11.2 L Monocytes % 7.7 Eosinophils % 0.2 Basophils % 0.2 Nucleated Red Blood Cells % 0.0 Neutrophils # 4.1 Lymphocytes # 0.6 L Monocytes # 0.4 Eosinophils # 0.0 Basophils # 0.0 Nucleated Red Blood Cells # 0.0 Sodium Level 139 Potassium Level 4.0 Chloride Level 109 Carbon Dioxide Level 21 Anion Gap 13 Blood Urea Nitrogen 24 H Creatinine 1.16 Glucose Level 84 Calcium Level 7.7 L Total Bilirubin 0.6 Direct Bilirubin 0.00 Indirect Bilirubin 0.6 Aspartate Amino Transf (AST/SGOT) 75 H Alanine Aminotransferase (ALT/SGPT) 53 Alkaline Phosphatase 101 Total Protein 6.2 Albumin 2.6 L Globulin 3.60 H Albumin/Globulin Ratio 0.72 Medications Medications Current Medications Brimonidine Tartrate (Alphagan 0.2%) 1 drop Q8 BOTH EYES Last administered on 07/20/17 05:47; Admin Dose 1 DROP; Start 07/14/17 at 14:00 Cyanocobalamin (Vitamin B12) 1,000 mcg DAILY PO Last administered on 09:14; Admin Dose 1,000 MCG; Start 07/15/17 at 09:00 Febuxostat (Uloric) 80 mg DAILY PO Last administered on 07/20/17 09:14; Admin Dose 80 MG; Start 07/14/17 at 13:00 Latanoprost (Xalatan) 1 drop QHS BOTH EYES Last administered on 07/18/17 21: 00; Admin Dose 1 DROP; Start 07/14/17 at 21:00 Metoprolol Tartrate (Lopressor) 25 mg BID PO Last administered on 07/18/17 21 :16; Admin Dose 25 MG; Start 07/14/17 at 13:00 Pregabalin (Lyrica) 50 mg BID PO Last administered on 07/20/17 09:14; Admin Dose 50 MG; Start 07/14/17 at 21:00 Lorazepam (Ativan) 0.25 mg BID PRN PO ANXIETY Last administered on 07/18/17 17:12; Admin Dose 0.25 MG; Start 07/14/17 at 13:00 Ondansetron HCl (Zofran Inj) 4 mg Q6H PRN IV NAUSEA AND/OR VOMITING Last administered on 07/18/17 13:05; Admin Dose 4 MG; Start 07/14/17 at 13:00 Acetaminophen/ Hydrocodone Bitart ([place] (5/325)) 1 tab Q6H PRN PO MODERATE PAIN LEVEL 4-6 Last administered on 07/18/17 16:13; Admin Dose 1 TAB; Start 07/14/17 at 13:00 Docusate Sodium (Colace) 100 mg Q12H PRN PO CONSTIPATION; Start 07/14/17 at 13: 00 Zolpidem Tartrate (Ambien) 5 mg QHS PRN PO SLEEP; Start 07/14/17 at 13:00 Memantine (Namenda) 5 mg BID PO Last administered on 07/20/17 09:14; Admin Dose 5 MG; Start 07/14/17 at 21:00 Aspirin (Halfprin) 81 mg DAILY PO Last administered on 07/20/17 09:15; Admin Dose 81 MG; Start 07/15/17 at 09:00 Atorvastatin Calcium (Lipitor) 10 mg HS PO Last administered on 07/19/17 21: 07; Admin Dose 10 MG; Start 07/15/17 at 21:00 Neomycin/ Polymyxin/ Bacitracin (Neosporin Topical Oint) 1 applic DAILY TOP Last administered on 07/20/17 09:17; Admin Dose 1 APPLIC; Start 07/15/17 at 11:00 Losartan Potassium (Cozaar) 50 mg DAILY PO ; Start 07/16/17 at 09:00 Epoetin Rosendo (Epogen (Esrd)) 10,000 units TuThSa@17 SC Last administered on 18:25; Admin Dose 10,000 UNITS; Start 07/17/17 at 17:00 Magnesium Hydroxide (Milk Of Mag) 30 ml BID PRN PO CONSTIPATION Last administered on 07/17/17 11:33; Admin Dose 30 ML; Start 07/17/17 at 10:30 Bisacodyl (Dulcolax Supp) 10 mg DAILY PRN [place] CONSTIPATION; Start 07/17/17 at 10:30 Acetaminophen 650 mg 650 mg Q6H PRN PO PAIN AND OR ELEVATED TEMP Last administered on 07/20/17 04:05; Admin Dose 650 MG; Start 07/18/17 at 20:30 Ceftriaxone Sodium 50 ml @ 100 mls/hr Q24H IVPB Last administered on 21:08; Admin Dose 100 MLS/HR; Start 07/18/17 at 20:30 Levofloxacin/ Dextrose 100 ml @ 100 mls/hr Q24H IVPB Last administered on 10/ 15/17at 11:15; Admin Dose 100 MLS/HR; Start 07/19/17 at 11:00 Dextrose/Sodium Chloride (D5-1/2ns) 1,000 ml @ 20 mls/hr Q24H IV Last administered on 07/19/17t 12:57; Admin Dose 20 MLS/HR; Start 07/19/17 at 12:00 SOLEDAD SCHROEDER MD Jul 20, 2017 13:51
--- NOTE | 2017-07-20 16:45 | PN ---
Date/Time of Note Date/Time of Note DATE: 07/20/17 TIME: 16:40 Assessment/Plan VTE Prophylaxis VTE Prophylaxis Intervention: SCD's Lines/Catheters [facility] Saline Lock Urinary Cath still in place: No Assessment/Plan Chief Complaint/Hosp Course 1. he had an episode of SOB and hypoxia 2 nights ago . He is on a non re breather mask now . His CXR shows bilateral infiltrates , CHF vs pneumonia . He is on lasix , levaquin and ceftriaxone . CXR is unchanged . He says that he is not SOB . 2. Pancytopenia . Hematology w/u is in progress , He had a blood transfusion 3 days ago . He had a bone marrow aspirate and biopsy 2 days ago . 3. hypertension , BP is lower , he is off BP meds . 4. dilated ventricles on CT scan , r/o Normal pressure hydrocephalus . Neuro does not think patient has a normal pressure hydrocephalus . 5. lumbar spine fractures , 1 of the lumbar spine fractures is acute. He also has some lumbar disc disease with stenosis. He is not complaining of pain. 6. He has a urinary tract infection . Problems: Subjective 24 Hr Interval Summary Free Text/Dictation Patient is sleeping . He arouses easily . He denies pain or SOB . He is still on non rebreather mask . Eyes: no complaints Respiratory: no complaints Cardiovascular: no complaints Gastrointestinal: no complaints Genitourinary: no complaints Exam/Review of Systems Vital Signs Vitals Vital Signs Date Time Temp Pulse Resp B/P Pulse Ox O2 Delivery O2 Flow Rate FiO2 07/20/17 15:20 97.9 83 18 98/56 99 07/20/17 08:00 Non Rebreather 10.0 07/20/17 00:40 100 Intake and Output 07/19/17 07/19/17 07/20/17 15:00 23:00 07:00 Intake Total 500 ml 670 ml 470 ml Output Total 600 ml 600 ml Balance 500 ml 70 ml -130 ml Exam Constitutional: frail Neck: supple Respiratory: clear to auscultation Cardiovascular: regular rate and rhythm Gastrointestinal: soft Musculoskeletal: nl extremities to inspection Results Result Diagram: 07/20/17 0532 07/20/17 0532 Results 24 hrs Laboratory Tests Test 07/20/17 05:32 White Blood Count 5.2 Red Blood Count 2.21 L Hemoglobin 7.8 L Hematocrit 25.1 L Mean Corpuscular Volume 113.6 H Mean Corpuscular Hemoglobin 35.3 H Mean Corpuscular Hemoglobin Concent 31.1 L Red Cell Distribution Width 22.5 H Platelet Count 80 L Mean Platelet Volume 12.3 H Neutrophils % 79.7 H Lymphocytes % 11.2 L Monocytes % 7.7 Eosinophils % 0.2 Basophils % 0.2 Nucleated Red Blood Cells % 0.0 Neutrophils # 4.1 Lymphocytes # 0.6 L Monocytes # 0.4 Eosinophils # 0.0 Basophils # 0.0 Nucleated Red Blood Cells # 0.0 Sodium Level 139 Potassium Level 4.0 Chloride Level 109 Carbon Dioxide Level 21 Anion Gap 13 Blood Urea Nitrogen 24 H Creatinine 1.16 Glucose Level 84 Calcium Level 7.7 L Total Bilirubin 0.6 Direct Bilirubin 0.00 Indirect Bilirubin 0.6 Aspartate Amino Transf (AST/SGOT) 75 H Alanine Aminotransferase (ALT/SGPT) 53 Alkaline Phosphatase 101 Total Protein 6.2 Albumin 2.6 L Globulin 3.60 H Albumin/Globulin Ratio 0.72 Medications Medications Current Medications Brimonidine Tartrate (Alphagan 0.2%) 1 drop Q8 BOTH EYES Last administered on 07/20/17 15:33; Admin Dose 1 DROP; Start 07/14/17 at 14:00 Cyanocobalamin (Vitamin B12) 1,000 mcg DAILY PO Last administered on 09:14; Admin Dose 1,000 MCG; Start 07/15/17 at 09:00 Febuxostat (Uloric) 80 mg DAILY PO Last administered on 07/20/17 09:14; Admin Dose 80 MG; Start 07/14/17 at 13:00 Latanoprost (Xalatan) 1 drop QHS BOTH EYES Last administered on 07/18/17 21: 00; Admin Dose 1 DROP; Start 07/14/17 at 21:00 Metoprolol Tartrate (Lopressor) 25 mg BID PO Last administered on 07/18/17 21 :16; Admin Dose 25 MG; Start 07/14/17 at 13:00 Pregabalin (Lyrica) 50 mg BID PO Last administered on 07/20/17 09:14; Admin Dose 50 MG; Start 07/14/17 at 21:00 Lorazepam (Ativan) 0.25 mg BID PRN PO ANXIETY Last administered on 07/18/17 17:12; Admin Dose 0.25 MG; Start 07/14/17 at 13:00 Ondansetron HCl (Zofran Inj) 4 mg Q6H PRN IV NAUSEA AND/OR VOMITING Last administered on 07/18/17 13:05; Admin Dose 4 MG; Start 07/14/17 at 13:00 Acetaminophen/ Hydrocodone Bitart ([place] (5/325)) 1 tab Q6H PRN PO MODERATE PAIN LEVEL 4-6 Last administered on 07/18/17 16:13; Admin Dose 1 TAB; Start 07/14/17 at 13:00 Docusate Sodium (Colace) 100 mg Q12H PRN PO CONSTIPATION; Start 07/14/17 at 13: 00 Zolpidem Tartrate (Ambien) 5 mg QHS PRN PO SLEEP; Start 07/14/17 at 13:00 Memantine (Namenda) 5 mg BID PO Last administered on 07/20/17 09:14; Admin Dose 5 MG; Start 07/14/17 at 21:00 Aspirin (Halfprin) 81 mg DAILY PO Last administered on 07/20/17 09:15; Admin Dose 81 MG; Start 07/15/17 at 09:00 Atorvastatin Calcium (Lipitor) 10 mg HS PO Last administered on 07/19/17 21: 07; Admin Dose 10 MG; Start 07/15/17 at 21:00 Neomycin/ Polymyxin/ Bacitracin (Neosporin Topical Oint) 1 applic DAILY TOP Last administered on 07/20/17 09:17; Admin Dose 1 APPLIC; Start 07/15/17 at 11:00 Losartan Potassium (Cozaar) 50 mg DAILY PO ; Start 07/16/17 at 09:00 Epoetin Rosendo (Epogen (Esrd)) 10,000 units TuThSa@17 SC Last administered on 18:25; Admin Dose 10,000 UNITS; Start 07/17/17 at 17:00 Magnesium Hydroxide (Milk Of Mag) 30 ml BID PRN PO CONSTIPATION Last administered on 07/17/17 11:33; Admin Dose 30 ML; Start 07/17/17 at 10:30 Bisacodyl (Dulcolax Supp) 10 mg DAILY PRN [place] CONSTIPATION; Start 07/17/17 at 10:30 Acetaminophen 650 mg 650 mg Q6H PRN PO PAIN AND OR ELEVATED TEMP Last administered on 07/20/17 04:05; Admin Dose 650 MG; Start 07/18/17 at 20:30 Ceftriaxone Sodium 50 ml @ 100 mls/hr Q24H IVPB Last administered on 21:08; Admin Dose 100 MLS/HR; Start 07/18/17 at 20:30 Levofloxacin/ Dextrose 100 ml @ 100 mls/hr Q24H IVPB Last administered on 11:15; Admin Dose 100 MLS/HR; Start 07/19/17 at 11:00 Dextrose/Sodium Chloride (D5-1/2ns) 1,000 ml @ 20 mls/hr Q24H IV Last administered on 07/19/17 12:57; Admin Dose 20 MLS/HR; Start 07/19/17 at 12:00 YANDY MCDERMOTT MD Jul 20, 2017 16:45
[2017-07-20 20:40] LABS: ADD UMIC NO; UR ASCORBIC ACID NEGATIVE (NEGATIVE); UR BILIRUBIN (Dip) NEGATIVE (NEGATIVE); UR BLOOD (Dip) NEGATIVE (NEGATIVE); UR CLARITY SLIGHTLY CLOUDY (CLEAR); UR COLOR YELLOW (YELLOW); UR GLUCOSE (Dip) NEGATIVE (NEGATIVE); UR KETONES (Dip) NEGATIVE (NEGATIVE); UR LEUKOCYTE ESTERASE (Dip) NEGATIVE Leu/ul (NEGATIVE); UR MUCUS FEW /HPF (NONE SEEN); UR NITRITE (Dip) NEGATIVE (NEGATIVE); UR RBC 1 /HPF (0-5); UR SPECIFIC GRAVITY (Dip) 1.012 (1.003-1.030); UR TOTAL PROTEIN (Dip) NEGATIVE (NEGATIVE); UR UROBILINOGEN (Dip) NEGATIVE (NEGATIVE)
[2017-07-20] MEDS: LATANOPROST 0.005% 2.5 ML OPH BOTH EYES SCH (21:00)
[2017-07-20] MEDS: CEFTRIAXONE 1 GM/50 ML (PMX) 50 ML IVPB SCH (22:04)
[2017-07-20] MEDS: ATORVASTATIN 10 MG TAB PO SCH (22:04)
[2017-07-21] VITALS (9 sets, daily range): BP systolic 95–113; BP diastolic 54–58; PULSE 79–110; RESP 16–22
[2017-07-21] MEDS: BRIMONIDINE 0.2% 5 ML BTL BOTH EYES SCH ×3 (05:38→22:00)
[2017-07-21] MEDS: FUROSEMIDE 20 MG INJ IV SCH ×2 (05:42→18:44)
[2017-07-21 06:23] LABS: ABNORMAL IP MESSAGE 1; BASOPHILS % 0.2 % (0.0-2.0); EOSINOPHILS # 0.1 10^3/ul (0.0-0.5); EOSINOPHILS % 1.5 % (0.0-7.0); HEMATOCRIT 26.8 % (42.0-52.0); HEMOGLOBIN 8.4 g/dl (14.0-18.0); LYMPHOCYTES # 0.5 10^3/ul (0.8-2.9); LYMPHOCYTES % 13.2 % (15.0-51.0); MEAN CORPUSCULAR HEMOGLOBIN 35.3 pg (29.0-33.0); MEAN CORPUSCULAR HGB CONC 31.3 g/dl (32.0-37.0); MEAN CORPUSCULAR VOLUME 112.6 fl (82.0-101.0); MEAN PLATELET VOLUME 12.7 fl (7.4-10.4); MONOCYTE # 0.3 10^3/ul (0.3-0.9); NEUTROPHIL # 3.1 10^3/ul (1.6-7.5); NEUTROPHILS % 77.4 % (39.0-77.0); PLATELET COUNT 84 10^3/UL (140-415); POSITIVE DIFF @See below; RED BLOOD COUNT 2.38 10^6/ul (4.70-6.10); RED CELL DISTRIBUTION WIDTH 21.7 % (11.5-14.5)
[2017-07-21 07:35] LABS: ALBUMIN 2.6 g/dl (3.3-4.9); ALBUMIN/GLOBULIN RATIO 0.6; BILIRUBIN,INDIRECT 0.5 mg/dl (0-1.1); BILIRUBIN,TOTAL 0.5 mg/dl (0.2-1.3); CALCIUM 7.9 mg/dl (8.4-10.2); CREATININE 1.04 mg/dl (0.61-1.24); POTASSIUM 4.4 mmol/L (3.5-5.1); TOTAL PROTEIN 6.9 g/dl (6.1-8.1)
[2017-07-21] MEDS: LOSARTAN 50 MG TAB PO SCH (09:00)
[2017-07-21] MEDS: METOPROLOL 25 MG TAB PO SCH ×2 (09:00→20:14)
[2017-07-21] MEDS: ASPIRIN (EC) 81 MG TAB PO SCH (09:37)
[2017-07-21] MEDS: FEBUXOSTAT 40 MG TABLET PO SCH (09:37)
[2017-07-21] MEDS: CYANOCOBALAMIN 500 MCG TAB PO SCH (09:37)
[2017-07-21] MEDS: PREGABALIN 50 MG CAP PO SCH ×2 (09:37→20:11)
[2017-07-21] MEDS: MEMANTINE 5 MG TAB PO SCH ×2 (09:37→20:12)
[2017-07-21] MEDS: NEOMYC/POLYMYX/BACIT 30 GM OINT TOP SCH (09:44)
--- NOTE | 2017-07-21 10:51 | PN ---
Date/Time of Note Date/Time of Note DATE: 07/21/17 TIME: 10:46 Assessment/Plan VTE Prophylaxis VTE Prophylaxis Intervention: SCD's Lines/Catheters IV C[facility]ter Type (from [facility]): Peripheral IV Urinary Cath still in place: No Assessment/Plan Chief Complaint/Hosp Course 1. He is on a non re breather mask now . His CXR shows bilateral infiltrates , CHF vs pneumonia . He is on lasix , levaquin and ceftriaxone . CXR done yesterday was unchanged . He says that he is not SOB . Will order a chest x- ray. 2. Pancytopenia . Hematology w/u is in progress , He had a blood transfusion 3 days ago . He had a bone marrow aspirate and biopsy 3 days ago . 3. hypertension , BP is lower , he is off BP meds . 4. dilated ventricles on CT scan , r/o Normal pressure hydrocephalus . Neuro does not think patient has a normal pressure hydrocephalus . 5. lumbar spine fractures , 1 of the lumbar spine fractures is acute. He also has some lumbar disc disease with stenosis. He is not complaining of pain. 6. He has a urinary tract infection . Problems: Subjective 24 Hr Interval Summary Free Text/Dictation He is awake and responsive. He complains of shoulder pain. He is still on a nonrebreather mask. Eyes: no complaints ENT: no complaints Respiratory: cough Gastrointestinal: no complaints Genitourinary: no complaints Musculoskeletal: bone/joint pain Neurologic: no complaints Exam/Review of Systems Vital Signs Vitals Vital Signs Date Time Temp Pulse Resp B/P Pulse Ox O2 Delivery O2 Flow Rate FiO2 07/21/17 08:21 86 07/21/17 07:05 98.0 18 100/54 96 07/20/17 20:59 15.0 100 07/20/17 20:00 Non Rebreather Intake and Output 07/20/17 07/20/17 07/21/17 15:00 23:00 07:00 Intake Total 100 ml 800 ml 350 ml Output Total 700 ml 700 ml Balance 100 ml 100 ml -350 ml Exam Constitutional: alert, frail, oriented ENMT: nl external ears & nose Neck: supple Respiratory: clear to auscultation Cardiovascular: regular rate and rhythm Gastrointestinal: soft Musculoskeletal: nl extremities to inspection Results Result Diagram: 07/21/17 0603 07/21/17 0603 Results 24 hrs Laboratory Tests Test 07/20/17:20 07/21/17 06:03 Urine Color YELLOW Urine Clarity SLIGHTLY CLOUDY A Urine pH 5.0 Urine Specific [place] 1.012 Urine Ketones NEGATIVE Urine Nitrite NEGATIVE Urine Bilirubin NEGATIVE Urine Urobilinogen NEGATIVE Urine Leukocyte Esterase NEGATIVE Urine Microscopic RBC 1 Urine Microscopic WBC 2 Urine Mucus FEW A Urine Hemoglobin NEGATIVE Urine Glucose NEGATIVE Urine Total Protein NEGATIVE White Blood Count 4.0 #L Red Blood Count 2.38 L Hemoglobin 8.4 L Hematocrit 26.8 L Mean Corpuscular Volume 112.6 H Mean Corpuscular Hemoglobin 35.3 H Mean Corpuscular Hemoglobin Concent 31.3 L Red Cell Distribution Width 21.7 H Platelet Count 84 L Mean Platelet Volume 12.7 H Neutrophils % 77.4 H Lymphocytes % 13.2 L Monocytes % 7.0 Eosinophils % 1.5 Basophils % 0.2 Nucleated Red Blood Cells % 0.0 Neutrophils # 3.1 Lymphocytes # 0.5 L Monocytes # 0.3 Eosinophils # 0.1 Basophils # 0.0 Nucleated Red Blood Cells # 0.0 Sodium Level 137 Potassium Level 4.4 Chloride Level 106 Carbon Dioxide Level 26 Anion Gap 9 Blood Urea Nitrogen 28 H Creatinine 1.04 Glucose Level 90 Calcium Level 7.9 L Total Bilirubin 0.5 Direct Bilirubin 0.00 Indirect Bilirubin 0.5 Aspartate Amino Transf (AST/SGOT) 82 H Alanine Aminotransferase (ALT/SGPT) 62 Alkaline Phosphatase 99 Total Protein 6.9 Albumin 2.6 L Globulin 4.30 H Albumin/Globulin Ratio 0.60 Medications Medications Current Medications Brimonidine Tartrate (Alphagan 0.2%) 1 drop Q8 BOTH EYES Last administered on 07/21/17 05:38; Admin Dose 1 DROP; Start 07/14/17 at 14:00 Cyanocobalamin (Vitamin B12) 1,000 mcg DAILY PO Last administered on 09:37; Admin Dose 1,000 MCG; Start 07/15/17 at 09:00 Febuxostat (Uloric) 80 mg DAILY PO Last administered on 07/21/17 09:37; Admin Dose 80 MG; Start 07/14/17 at 13:00 Latanoprost (Xalatan) 1 drop QHS BOTH EYES Last administered on 07/20/17 21: 00; Admin Dose 1 DROP; Start 07/14/17 at 21:00 Metoprolol Tartrate (Lopressor) 25 mg BID PO Last administered on 07/20/17 22 :05; Admin Dose 25 MG; Start 07/14/17 at 13:00 Pregabalin (Lyrica) 50 mg BID PO Last administered on 07/21/17 09:37; Admin Dose 50 MG; Start 07/14/17 at 21:00 Lorazepam (Ativan) 0.25 mg BID PRN PO ANXIETY Last administered on 07/18/17 17:12; Admin Dose 0.25 MG; Start 07/14/17 at 13:00 Ondansetron HCl (Zofran Inj) 4 mg Q6H PRN IV NAUSEA AND/OR VOMITING Last administered on 07/18/17 13:05; Admin Dose 4 MG; Start 07/14/17 at 13:00 Acetaminophen/ Hydrocodone Bitart ([place] (5/325)) 1 tab Q6H PRN PO MODERATE PAIN LEVEL 4-6 Last administered on 07/18/17 16:13; Admin Dose 1 TAB; Start 07/14/17 at 13:00 Docusate Sodium (Colace) 100 mg Q12H PRN PO CONSTIPATION; Start 07/14/17 at 13: 00 Zolpidem Tartrate (Ambien) 5 mg QHS PRN PO SLEEP; Start 07/14/17 at 13:00 Memantine (Namenda) 5 mg BID PO Last administered on 07/21/17 09:37; Admin Dose 5 MG; Start 07/14/17 at 21:00 Aspirin (Halfprin) 81 mg DAILY PO Last administered on 07/21/17 09:37; Admin Dose 81 MG; Start 07/15/17 at 09:00 Atorvastatin Calcium (Lipitor) 10 mg HS PO Last administered on 07/20/17 22: 04; Admin Dose 10 MG; Start 07/15/17 at 21:00 Neomycin/ Polymyxin/ Bacitracin (Neosporin Topical Oint) 1 applic DAILY TOP Last administered on 07/21/17 09:44; Admin Dose 1 APPLIC; Start 07/15/17 at 11:00 Losartan Potassium (Cozaar) 50 mg DAILY PO ; Start 07/16/17 at 09:00 Epoetin Rosendo (Epogen (Esrd)) 10,000 units TuThSa@17 SC Last administered on 18:25; Admin Dose 10,000 UNITS; Start 07/17/17 at 17:00 Magnesium Hydroxide (Milk Of Mag) 30 ml BID PRN PO CONSTIPATION Last administered on 07/17/17 11:33; Admin Dose 30 ML; Start 07/17/17 at 10:30 Bisacodyl (Dulcolax Supp) 10 mg DAILY PRN [place] CONSTIPATION; Start 07/17/17 at 10:30 Acetaminophen 650 mg 650 mg Q6H PRN PO PAIN AND OR ELEVATED TEMP Last administered on 07/20/17 22:06; Admin Dose 650 MG; Start 07/18/17 at 20:30 Ceftriaxone Sodium 50 ml @ 100 mls/hr Q24H IVPB Last administered on 22:04; Admin Dose 100 MLS/HR; Start 07/18/17 at 20:30 Levofloxacin/ Dextrose 100 ml @ 100 mls/hr Q24H IVPB Last administered on 11:15; Admin Dose 100 MLS/HR; Start 07/19/17 at 11:00 Dextrose/Sodium Chloride (D5-1/2ns) 1,000 ml @ 20 mls/hr Q24H IV Last administered on 07/19/17 12:57; Admin Dose 20 MLS/HR; Start 07/19/17 at 12:00 YANDY MCDERMOTT MD Jul 21, 2017 10:51
[2017-07-21] MEDS: LEVOFLOXACIN 500MG/D5W (PMX) 100 ML IVPB SCH (11:38)
--- NOTE | 2017-07-21 12:07 | RADRPT ---
PROCEDURE: XR Chest. CLINICAL INDICATION: Congestive heart failure. TECHNIQUE: Single frontal view of the chest was obtained. COMPARISON: DR CHEST 07/20/2017; RASHID CHEST 06/28/2015; RASHID CHEST 06/27/2015; RASHID CHEST 10/15/2011. FINDINGS: Monitoring electrodes are projecting across the chest. There are degenerative osteophytes in the th oracic and upper lumbar spine. The heart is mildly enlarged but unchanged. The cardiomediastinal si lhouette and hilar structures are normal. The pulmonary vasculature is normal. There are vascular c alcifications in the aortic arch. The bilateral perihilar and basilar infiltrates seen on the prior study have improved. The left costophrenic angle is blunted. The right costophrenic angle is normal . IMPRESSION: 1. Cardiomegaly which is unchanged. 2. Interval decrease in the bilateral pleural effusions when compared to 07/20/2017. 3. Interval improvement of the perihilar and basilar infiltrates seen on the prior study. There are persistent asymmetric infiltrates in the left perihilar area and bases of the lungs. This may refle ct resolving asymmetric pulmonary edema from CHF. RPTAT:AAJJ Physician Shanti Date Time Electronically viewed and signed by Physician Shanti on 07/21/2017 12:07 BRAYDEN/
[2017-07-21] MEDS: ATORVASTATIN 10 MG TAB PO SCH (20:12)
[2017-07-21] MEDS: ACETAMINOPHEN 325 MG TAB PO PRN (20:17)
[2017-07-21] MEDS: LATANOPROST 0.005% 2.5 ML OPH BOTH EYES SCH (21:00)
[2017-07-22 02:33] VITALS: BP 102/52; RESP 20
[2017-07-22] MEDS: MAGNESIUM HYDROXIDE 30ML CUP PO PRN (05:44)
[2017-07-22 05:50] VITALS: BP 102/56; PULSE 88; RESP 18
[2017-07-22] MEDS: BRIMONIDINE 0.2% 5 ML BTL BOTH EYES SCH ×3 (06:00→22:00)
[2017-07-22] MEDS: FUROSEMIDE 20 MG INJ IV SCH (06:27)
--- NOTE | 2017-07-22 07:12 | PN ---
DATE: 07/21/2017 HEMATOLOGY PROGRESS NOTE SUBJECTIVE: Mr. Hanna states he is feeling well, is somewhat atypical, however. OBJECTIVE: GENERAL: Patient is a thin, well-developed, but chronically ill-appearing male. VITAL SIGNS: Temperature 98, pulse 110 per minute, respirations 22, blood pressure 99/58, pulse oxi metry is 96% on 10 liters by nonrebreathing mask. SKIN: Pale, scattered ecchymoses. HEENT: Normocephalic. No evidence of trauma. Pupils equal, round, reactive to light and accommoda tion. Oral mucosa is dry without lesions. There is no scleral icterus. The patient does have a no nrebreathing mask in place at 10 liters per minute. NECK: Supple. No jugular venous distention or thyroid enlargement. CHEST: There are bilateral pleural effusions which apparently have decreased, and there has been al so improvement in the perihilar basilar infiltrates. HEART: There is sinus tachycardia. ABDOMEN: Soft. No masses, no ascites. Bowel sounds are active. EXTREMITIES: No clubbing or cyanosis. NEUROLOGIC: Weakness, but no focal neurologic abnormalities. ASSESSMENT: 1. Possible congestive heart failure versus pneumonia. 2. 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 3. Hypertension. 4. Urinary tract infection. DISCUSSION: The patient had a bone marrow aspiration and biopsy performed on 07/18/2017. Results a re not available yet. This will determine whether or not the patient does in fact have myelodysplas tic syndrome, and whether he may be a candidate for lenalidomide. Dictated By: FRED NUNEZ MD SR/NTS Conf#: [id number] DID#: [id number] CC: CHERRY GRIMM MD;*EndCC*
[2017-07-22 08:03] VITALS: BP 102/57; RESP 24
[2017-07-22] MEDS: FEBUXOSTAT 40 MG TABLET PO SCH (08:53)
[2017-07-22] MEDS: ASPIRIN (EC) 81 MG TAB PO SCH (08:53)
[2017-07-22] MEDS: CYANOCOBALAMIN 500 MCG TAB PO SCH (08:54)
[2017-07-22] MEDS: MEMANTINE 5 MG TAB PO SCH ×2 (08:54→20:56)
[2017-07-22] MEDS: LOSARTAN 50 MG TAB PO SCH (09:00)
[2017-07-22] MEDS: NEOMYC/POLYMYX/BACIT 30 GM OINT TOP SCH (09:00)
[2017-07-22] MEDS: METOPROLOL 25 MG TAB PO SCH ×2 (09:04→21:00)
--- NOTE | 2017-07-22 09:20 | CONS ---
Date/Time of Note Date/Time of Note DATE: 07/22/17 TIME: 09:16 Assessment/Plan Assessment/Plan Chief Complaint/Hosp Course 1. He is awake and alert this morning; however, his blood pressure is lower and he is tachycardic. Chest x-ray done yesterday showed improved aeration with decreased bilateral infiltrates., CHF vs pneumonia . He is on lasix and Levaquin. . He says that he is not SOB . I will give him a bolus of IV normal saline now. Will hold Lasix and metoprolol. 2. Pancytopenia . Hematology w/u is in progress , He had a blood transfusion 4 days ago . He had a bone marrow aspirate and biopsy 3 days ago . Results are pending. 3. hypertension , BP is lower , he is off BP meds . 4. dilated ventricles on CT scan of the brain, r/o Normal pressure hydrocephalus . Neuro does not think patient has a normal pressure hydrocephalus . 5. lumbar spine fractures , 1 of the lumbar spine fractures is acute. He also has some lumbar disc disease with stenosis. He is not complaining of pain. 6. He has a urinary tract infection . Problems: Consultation Date/Type/Reason Admit Date/Time Jul 14, 2017 at 10:41 Initial Consult Date 07/14/17 Type of Consultation: pulm Referring Provider: YANDY MCDERMOTT MD 24 HR Interval Summary Free Text/Dictation He is awake and responsive this morning. His blood pressure is low and he is tachycardic. His oxygenation is better. Constitutional: no complaints Exam/Review of Systems Vital Signs Vitals Vital Signs Date Time Temp Pulse Resp B/P Pulse Ox O2 Delivery O2 Flow Rate FiO2 07/22/17 08:03 97.7 95 24 102/57 94 07/22/17 05:50 Non Rebreather 10.0 07/20/17 20:59 100 Intake and Output 07/21/17 07/21/17 07/22/17 15:00 23:00 07:00 Intake Total 400 ml 550 ml Output Total 950 ml 1000 ml Balance -550 ml -450 ml Exam Constitutional: alert, oriented Psych: no complaints Respiratory: clear to auscultation, normal air movement Cardiovascular: regular rate and rhythm Gastrointestinal: soft Musculoskeletal: nl extremities to inspection Results Result Diagram: 07/21/17 0603 07/21/17 0603 Medications Medications Current Medications Brimonidine Tartrate ([place] 0.2%) 1 drop Q8 BOTH EYES Last administered on 07/21/17 14:08; Admin Dose 1 DROP; Start 07/14/17 at 14:00 Cyanocobalamin (Vitamin B12) 1,000 mcg DAILY PO Last administered on 08:54; Admin Dose 1,000 MCG; Start 07/15/17 at 09:00 Febuxostat (Uloric) 80 mg DAILY PO Last administered on 07/22/17 08:53; Admin Dose 80 MG; Start 07/14/17 at 13:00 Latanoprost (Xalatan) 1 drop QHS BOTH EYES Last administered on 07/20/17 21: 00; Admin Dose 1 DROP; Start 07/14/17 at 21:00 Metoprolol Tartrate (Lopressor) 25 mg BID PO Last administered on 07/22/17 09 :04; Admin Dose 25 MG; Start 07/14/17 at 13:00 Pregabalin (Lyrica) 50 mg BID PO Last administered on 07/21/17 20:11; Admin Dose 50 MG; Start 07/14/17 at 21:00 Lorazepam (Ativan) 0.25 mg BID PRN PO ANXIETY Last administered on 07/18/17 17:12; Admin Dose 0.25 MG; Start 07/14/17 at 13:00 Ondansetron HCl (Zofran Inj) 4 mg Q6H PRN IV NAUSEA AND/OR VOMITING Last administered on 07/18/17 13:05; Admin Dose 4 MG; Start 07/14/17 at 13:00 Acetaminophen/ Hydrocodone Bitart ([place] (5/325)) 1 tab Q6H PRN PO MODERATE PAIN LEVEL 4-6 Last administered on 07/18/17 16:13; Admin Dose 1 TAB; Start 07/14/17 at 13:00 Docusate Sodium (Colace) 100 mg Q12H PRN PO CONSTIPATION Last administered on 07/22/17 05:44; Admin Dose 100 MG; Start 07/14/17 at 13:00 Zolpidem Tartrate (Ambien) 5 mg QHS PRN PO SLEEP; Start 07/14/17 at 13:00 Memantine (Namenda) 5 mg BID PO Last administered on 07/22/17 08:54; Admin Dose 5 MG; Start 07/14/17 at 21:00 Aspirin (Halfprin) 81 mg DAILY PO Last administered on 07/22/17 08:53; Admin Dose 81 MG; Start 07/15/17 at 09:00 Atorvastatin Calcium (Lipitor) 10 mg HS PO Last administered on 07/21/17 20: 12; Admin Dose 10 MG; Start 07/15/17 at 21:00 Neomycin/ Polymyxin/ Bacitracin (Neosporin Topical Oint) 1 applic DAILY TOP Last administered on 07/21/17 09:44; Admin Dose 1 APPLIC; Start 07/15/17 at 11:00 Losartan Potassium (Cozaar) 50 mg DAILY PO ; Start 07/16/17 at 09:00 Epoetin Rosendo (Epogen (Esrd)) 10,000 units TuThSa@17 SC Last administered on 18:25; Admin Dose 10,000 UNITS; Start 07/17/17 at 17:00 Magnesium Hydroxide (Milk Of Mag) 30 ml BID PRN PO CONSTIPATION Last administered on 07/22/17 05:44; Admin Dose 30 ML; Start 07/17/17 at 10:30 Bisacodyl (Dulcolax Supp) 10 mg DAILY PRN [place] CONSTIPATION; Start 07/17/17 at 10:30 Acetaminophen 650 mg 650 mg Q6H PRN PO PAIN AND OR ELEVATED TEMP Last administered on 07/21/17 20:17; Admin Dose 650 MG; Start 07/18/17 at 20:30 Levofloxacin/ Dextrose (Levaquin 500mg/ D5W 100 ml (Pmx)) 100 ml @ 100 mls/hr Q24H IVPB Last administered on 07/21/17 11:38; Admin Dose 100 MLS/HR; Start 07/19/17 at 11:00 YANDY MCDERMOTT MD Jul 22, 2017 09:20
[2017-07-22] MEDS ORDERED: SOD CHLORIDE 0.9% 250 ML IV ONE (09:30)
[2017-07-22] MEDS: PREGABALIN 50 MG CAP PO SCH ×2 (10:37→20:56)
--- NOTE | 2017-07-22 11:59 | CONS ---
Date/Time of Note Date/Time of Note DATE: 07/22/17 TIME: 11:57 Assessment/Plan Assessment/Plan Chief Complaint/Hosp Course dictated [id number] fluid overload with pulm edema. decrease iv fluid, administewr lasix, f/u cxr tomorrow. Problems: Additional Assessment/Plan Assessment and recommendations; 1. Patient admitted with a fall with a history of myelodysplastic syndrome with pancytopenia. 2. Developed shortness of breath likely from fluid overload. Responding well to Lasix with improving symptoms. 3. History of hypertension. 4. Status post bone marrow biopsy. Results are pending. Continue current treatment. Awaiting chest x-ray. Once x-rays done I will reevaluate the patient. Currently there is no suspicion of any infective process. Consultation Date/Type/Reason Admit Date/Time Jul 14, 2017 at 10:41 Initial Consult Date 07/19/17 Type of Consultation: pulm Referring Provider: YANDY MCDERMOTT MD 24 HR Interval Summary Free Text/Dictation Consult follow-up date is 07/21/2017. Time is 8:30 AM. Patient's condition is improving. He reports significant improvement in shortness of breath. However still maintained on 100% nonrebreather mask. General exam; elderly male, awake and alert. Currently in no distress. Exam/Review of Systems Vital Signs Vitals Vital Signs Date Time Temp Pulse Resp B/P Pulse Ox O2 Delivery O2 Flow Rate FiO2 07/22/17 08:03 97.7 95 24 102/57 94 07/22/17 05:50 Non Rebreather 10.0 07/20/17 20:59 100 Intake and Output 07/21/17 07/21/17 07/22/17 15:00 23:00 07:00 Intake Total 400 ml 550 ml Output Total 950 ml 1000 ml Balance -550 ml -450 ml Exam HEENT exam; supple neck, no JVD. No lymphadenopathy. Midline trachea. No thyromegaly. Pupils are small bilaterally. Chest exam; clear to auscultation. S1-S2 audible, no murmurs. Abdomen exam; soft, scaphoid. Nontender. No organomegaly. Bowel sounds audible. Extremity exam; no peripheral edema. FUR [employer]ILOR exam; no focal deficit. Results Result Diagram: 10/16/17 0603 10/16/17 0603 Results 24 hrs Laboratory Tests Test 07/22/17 10:23 Lab Scanned Report REFERENCE LAB Medications Medications Current Medications Brimonidine Tartrate (Alph[place] 0.2%) 1 drop Q8 BOTH EYES Last administered on 07/21/17 14:08; Admin Dose 1 DROP; Start 07/14/17 at 14:00 Cyanocobalamin (Vitamin B12) 1,000 mcg DAILY PO Last administered on 08:54; Admin Dose 1,000 MCG; Start 07/15/17 at 09:00 Febuxostat (Uloric) 80 mg DAILY PO Last administered on 07/22/17 08:53; Admin Dose 80 MG; Start 07/14/17 at 13:00 Latanoprost (Xalatan) 1 drop QHS BOTH EYES Last administered on 07/20/17 21: 00; Admin Dose 1 DROP; Start 07/14/17 at 21:00 Metoprolol Tartrate (Lopressor) 25 mg BID PO Last administered on 07/22/17 09 :04; Admin Dose 25 MG; Start 07/14/17 at 13:00 Pregabalin (Lyrica) 50 mg BID PO Last administered on 07/22/17 10:37; Admin Dose 50 MG; Start 07/14/17 at 21:00 Lorazepam (Ativan) 0.25 mg BID PRN PO ANXIETY Last administered on 07/18/17 17:12; Admin Dose 0.25 MG; Start 07/14/17 at 13:00 Ondansetron HCl (Zofran Inj) 4 mg Q6H PRN IV NAUSEA AND/OR VOMITING Last administered on 07/18/17 13:05; Admin Dose 4 MG; Start 07/14/17 at 13:00 Acetaminophen/ Hydrocodone Bitart ([place] (5/325)) 1 tab Q6H PRN PO MODERATE PAIN LEVEL 4-6 Last administered on 07/18/17 16:13; Admin Dose 1 TAB; Start 07/14/17 at 13:00 Docusate Sodium (Colace) 100 mg Q12H PRN PO CONSTIPATION Last administered on 07/22/17 05:44; Admin Dose 100 MG; Start 07/14/17 at 13:00 Zolpidem Tartrate (Ambien) 5 mg QHS PRN PO SLEEP; Start 07/14/17 at 13:00 Memantine (Namenda) 5 mg BID PO Last administered on 07/22/17 08:54; Admin Dose 5 MG; Start 07/14/17 at 21:00 Aspirin (Halfprin) 81 mg DAILY PO Last administered on 07/22/17 08:53; Admin Dose 81 MG; Start 07/15/17 at 09:00 Atorvastatin Calcium (Lipitor) 10 mg HS PO Last administered on 07/21/17 20: 12; Admin Dose 10 MG; Start 07/15/17 at 21:00 Neomycin/ Polymyxin/ Bacitracin (Neosporin Topical Oint) 1 applic DAILY TOP Last administered on 07/21/17 09:44; Admin Dose 1 APPLIC; Start 07/15/17 at 11:00 Epoetin Rosendo (Epogen (Esrd)) 10,000 units TuThSa@17 SC Last administered on 18:25; Admin Dose 10,000 UNITS; Start 07/17/17 at 17:00 Magnesium Hydroxide (Milk Of Mag) 30 ml BID PRN PO CONSTIPATION Last administered on 07/22/17 05:44; Admin Dose 30 ML; Start 07/17/17 at 10:30 Bisacodyl (Dulcolax Supp) 10 mg DAILY PRN [place] CONSTIPATION; Start 07/17/17 at 10:30 Acetaminophen (Tylenol Tab) 650 mg Q6H PRN PO PAIN AND OR ELEVATED TEMP Last administered on 07/21/17 20:17; Admin Dose 650 MG; Start 07/18/17 at 20:30 REECE VELOZ Jul 22, 2017 11:59
--- NOTE | 2017-07-22 12:02 | CONS ---
Date/Time of Note Date/Time of Note DATE: 07/22/17 TIME: 11:59 Assessment/Plan Assessment/Plan Chief Complaint/Hosp Course dictated [id number] fluid overload with pulm edema. decrease iv fluid, administewr lasix, f/u cxr tomorrow. Problems: Additional Assessment/Plan Assessment and recommendations; 1. Patient admitted with fall with a history of myelodysplastic syndrome with pancytopenia status post bone marrow biopsy. 2. Patient developed shortness of breath with noncardiogenic pulmonary edema likely from fluid overload responding very well to Lasix with marked radiological improvement. 3. Episode of hypotension and tachycardia likely from some element of over diuresis. Patient has been given a fluid bolus and Lasix discontinued. 4. History of hypertension. 5. Currently no evidence of any infective process. Levaquin discontinued. Continue current supportive care. Awaiting bone marrow biopsy results. Consultation Date/Type/Reason Admit Date/Time Jul 14, 2017 at 10:41 Initial Consult Date 07/19/17 Type of Consultation: pulm Referring Provider: YANDY MCDERMOTT MD 24 HR Interval Summary Free Text/Dictation Patien's condition is markedly improved. Patient has been weaned off to 4 L nasal cannula. Denies any shortness of breath, chest pain, cough. Next General exam; elderly male, awake and alert. Currently in no distress. Exam/Review of Systems Vital Signs Vitals Vital Signs Date Time Temp Pulse Resp B/P Pulse Ox O2 Delivery O2 Flow Rate FiO2 07/22/17 08:03 97.7 95 24 102/57 94 07/22/17 05:50 Non Rebreather 10.0 07/20/17 20:59 100 Intake and Output 07/21/17 07/21/17 07/22/17 15:00 23:00 07:00 Intake Total 400 ml 550 ml Output Total 950 ml 1000 ml Balance -550 ml -450 ml Exam HEENT exam; supple neck, no JVD. No lymphadenopathy. Midline trachea. No thyromegaly. Pharynx is clear. Pupils are small bilaterally. Chest exam; clear to auscultation. S1-S2 audible, no murmurs. Regular rhythm. Abdomen exam; soft, nontender. No organomegaly. Bowel sounds audible. Extremity exam; no peripheral edema. [employer] exam; no focal deficit. Results Result Diagram: 07/21/17 0603 07/21/17 0603 Results 24 hrs Laboratory Tests Test 07/22/17 10:23 Lab Scanned Report REFERENCE LAB Medications Medications Current Medications Brimonidine Tartrate ([place] 0.2%) 1 drop Q8 BOTH EYES Last administered on 07/21/17 14:08; Admin Dose 1 DROP; Start 07/14/17 at 14:00 Cyanocobalamin (Vitamin B12) 1,000 mcg DAILY PO Last administered on 08:54; Admin Dose 1,000 MCG; Start 07/15/17 at 09:00 Febuxostat (Uloric) 80 mg DAILY PO Last administered on 07/22/17 08:53; Admin Dose 80 MG; Start 07/14/17 at 13:00 Latanoprost (Xalatan) 1 drop QHS BOTH EYES Last administered on 07/20/17 21: 00; Admin Dose 1 DROP; Start 07/14/17 at 21:00 Metoprolol Tartrate (Lopressor) 25 mg BID PO Last administered on 07/22/17 09 :04; Admin Dose 25 MG; Start 07/14/17 at 13:00 Pregabalin (Lyrica) 50 mg BID PO Last administered on 07/22/17 10:37; Admin Dose 50 MG; Start 07/14/17 at 21:00 Lorazepam (Ativan) 0.25 mg BID PRN PO ANXIETY Last administered on 07/18/17 17:12; Admin Dose 0.25 MG; Start 07/14/17 at 13:00 Ondansetron HCl (Zofran Inj) 4 mg Q6H PRN IV NAUSEA AND/OR VOMITING Last administered on 07/18/17 13:05; Admin Dose 4 MG; Start 07/14/17 at 13:00 Acetaminophen/ Hydrocodone Bitart ([place] (5/325)) 1 tab Q6H PRN PO MODERATE PAIN LEVEL 4-6 Last administered on 07/18/17 16:13; Admin Dose 1 TAB; Start 07/14/17 at 13:00 Docusate Sodium (Colace) 100 mg Q12H PRN PO CONSTIPATION Last administered on 07/22/17 05:44; Admin Dose 100 MG; Start 07/14/17 at 13:00 Zolpidem Tartrate (Ambien) 5 mg QHS PRN PO SLEEP; Start 07/14/17 at 13:00 Memantine (Namenda) 5 mg BID PO Last administered on 07/22/17 08:54; Admin Dose 5 MG; Start 07/14/17 at 21:00 Aspirin (Halfprin) 81 mg DAILY PO Last administered on 07/22/17 08:53; Admin Dose 81 MG; Start 07/15/17 at 09:00 Atorvastatin Calcium (Lipitor) 10 mg HS PO Last administered on 07/21/17 20: 12; Admin Dose 10 MG; Start 07/15/17 at 21:00 Neomycin/ Polymyxin/ Bacitracin (Neosporin Topical Oint) 1 applic DAILY TOP Last administered on 07/21/17 09:44; Admin Dose 1 APPLIC; Start 07/15/17 at 11:00 Epoetin Rosendo (Epogen (Esrd)) 10,000 units TuThSa@17 SC Last administered on 18:25; Admin Dose 10,000 UNITS; Start 07/17/17 at 17:00 Magnesium Hydroxide (Milk Of Mag) 30 ml BID PRN PO CONSTIPATION Last administered on 07/22/17 05:44; Admin Dose 30 ML; Start 07/17/17 at 10:30 Bisacodyl (Dulcolax Supp) 10 mg DAILY PRN [place] CONSTIPATION; Start 07/17/17 at 10:30 Acetaminophen (Tylenol Tab) 650 mg Q6H PRN PO PAIN AND OR ELEVATED TEMP Last administered on 07/21/17 20:17; Admin Dose 650 MG; Start 07/18/17 at 20:30 REECE VELOZ Jul 22, 2017 12:02
[2017-07-22 14:00] VITALS: BP_SYST 181; BP_SYST 93; BP_DIAS 51; BP_DIAS 80; RESP 18; RESP 19
[2017-07-22] MEDS: EPOETIN 10000 UNITS/1 ML INJ (ESRD) SC SCH (18:40)
[2017-07-22 20:11] VITALS: BP 95/52; RESP 20
[2017-07-22 20:53] VITALS: BP 105/60; PULSE 66
[2017-07-22] MEDS: LATANOPROST 0.005% 2.5 ML OPH BOTH EYES SCH (20:55)
[2017-07-22] MEDS: ATORVASTATIN 10 MG TAB PO SCH (20:56)
--- NOTE | 2017-07-22 21:55 | PN ---
DATE: 07/22/2017 SUBJECTIVE: Patient is lethargic and responds slowly to questions. He states he has no complaints. OBJECTIVE: GENERAL: The patient is a well-developed, lethargic male who is chronically ill-appearing. VITAL SIGNS: Temperature 98.3, pulse 66 per minute and regular, respirations 20, blood pressure 105 /60, pulse oximetry is not recorded. SKIN: Pale with scattered ecchymosis and purpura. HEENT: Normocephalic. No evidence of trauma. Pupils equal, round, and react to light and accommod ation. Sclerae nonicteric. Oral mucosa is dry. NECK: Supple, no jugular venous distention or thyroid enlargement. CHEST: There are decreased breath sounds bilaterally. HEART: Regular sinus rhythm, no S3, S4 or murmurs. ABDOMEN: No masses or ascites. Bowel sounds are active. EXTREMITIES: No clubbing, edema or cyanosis. NEUROLOGIC: No focal neurologic abnormalities. The patient is lethargic. ASSESSMENT: 1. Congestive heart failure versus pneumonia. 2. 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 3. Hypertension. 4. Urinary tract infection. DISCUSSION: Unfortunately, the results of bone marrow aspiration and biopsy done on 07/18/2017 are still not available. We will repeat the patient's CBC in the morning. Dictated By: FRED NUNEZ MD, SR/EARNESTINE Conf#: [id number] DID#: [id number]
[2017-07-23 02:15] VITALS: BP 100/56; RESP 18
[2017-07-23 05:38] LABS: ABNORMAL IP MESSAGE 1; BASOPHILS % 0.3 % (0.0-2.0); EOSINOPHILS % 0.9 % (0.0-7.0); HEMATOCRIT 26.5 % (42.0-52.0); HEMOGLOBIN 8.7 g/dl (14.0-18.0); LYMPHOCYTES # 0.6 10^3/ul (0.8-2.9); LYMPHOCYTES % 18.1 % (15.0-51.0); MEAN CORPUSCULAR HEMOGLOBIN 36.3 pg (29.0-33.0); MEAN CORPUSCULAR HGB CONC 32.8 g/dl (32.0-37.0); MEAN CORPUSCULAR VOLUME 110.4 fl (82.0-101.0); MEAN PLATELET VOLUME 12.4 fl (7.4-10.4); MONOCYTE # 0.3 10^3/ul (0.3-0.9); MONOCYTES % 8.6 % (0.0-11.0); NEUTROPHIL # 2.4 10^3/ul (1.6-7.5); NEUTROPHILS % 70.9 % (39.0-77.0); PLATELET COUNT 77 10^3/UL (140-415); POSITIVE DIFF @See below; RED CELL DISTRIBUTION WIDTH 20.6 % (11.5-14.5); WHITE BLOOD COUNT 3.4 10^3/ul (4.8-10.8)
[2017-07-23] MEDS: BRIMONIDINE 0.2% 5 ML BTL BOTH EYES SCH ×3 (05:43→20:32)
[2017-07-23 06:42] LABS: ALBUMIN 2.6 g/dl (3.3-4.9); ALBUMIN/GLOBULIN RATIO 0.65; BILIRUBIN,INDIRECT 0.6 mg/dl (0-1.1); BILIRUBIN,TOTAL 0.6 mg/dl (0.2-1.3); CALCIUM 7.9 mg/dl (8.4-10.2); CREATININE 0.99 mg/dl (0.61-1.24); POTASSIUM 4.1 mmol/L (3.5-5.1); TOTAL PROTEIN 6.6 g/dl (6.1-8.1)
[2017-07-23] MEDS: ASPIRIN (EC) 81 MG TAB PO SCH (09:31)
[2017-07-23] MEDS: MEMANTINE 5 MG TAB PO SCH ×2 (09:31→20:31)
[2017-07-23] MEDS: CYANOCOBALAMIN 500 MCG TAB PO SCH (09:31)
[2017-07-23] MEDS: FEBUXOSTAT 40 MG TABLET PO SCH (09:32)
[2017-07-23] MEDS: HYDROCODONE/APAP (5/325) TAB PO PRN ×2 (09:33→20:34)
[2017-07-23] MEDS: METOPROLOL 25 MG TAB PO SCH ×2 (09:39→20:32)
[2017-07-23] MEDS: PREGABALIN 50 MG CAP PO SCH (09:39)
[2017-07-23] MEDS: NEOMYC/POLYMYX/BACIT 30 GM OINT TOP SCH (09:40)
--- NOTE | 2017-07-23 11:18 | PN ---
Date/Time of Note Date/Time of Note DATE: 07/23/17 TIME: 11:14 Assessment/Plan VTE Prophylaxis VTE Prophylaxis Intervention: SCD's Lines/Catheters IV [facility]from [facility] Saline Lock Urinary Cath still in place: No Assessment/Plan Chief Complaint/Hosp Course 1. He is awake and alert this morning , his blood pressure is higher and he is requiring less oxygen. Chest x-ray done yesterday showed improved aeration with decreased bilateral infiltrates., CHF vs pneumonia . He says that he is not SOB . I stopped Lasix yesterday. 2. Pancytopenia . Hematology w/u is in progress , He had a blood transfusion 4 days ago . He had a bone marrow aspirate and biopsy 3 days ago . Results are pending. The preliminary results of the bone marrow aspirate and biopsy show a hypocellular bone marrow. Possible MDS; however, pathology is waiting for some molecular studies. 3. hypertension , BP is lower , he is off BP meds . 4. dilated ventricles on CT scan of the brain, r/o Normal pressure hydrocephalus . Neuro does not think patient has a normal pressure hydrocephalus . 5. lumbar spine fractures , 1 of the lumbar spine fractures is acute. He also has some lumbar disc disease with stenosis. He is not complaining of pain. 6. He has a urinary tract infection . I have spoken with the acute rehab unit. If his oxygen requirements continue to decrease then he may be a candidate for transfer to the acute rehab unit. Problems: Subjective 24 Hr Interval Summary Free Text/Dictation He is awake and alert. He is requiring less oxygen. Constitutional: no complaints, poor po Respiratory: no complaints Cardiovascular: no complaints Gastrointestinal: no complaints Psychological: no complaints Exam/Review of Systems Vital Signs Vitals Vital Signs Date Time Temp Pulse Resp B/P Pulse Ox O2 Delivery O2 Flow Rate FiO2 07/23/17 02:15 98.6 88 18 100/56 98 07/22/17 20:47 Nasal Cannula 4.0 07/20/17 20:59 100 Intake and Output 07/22/17 07/22/17 07/23/17 14:59 22:59 06:59 Intake Total 250 ml 600 ml 480 ml Output Total 950 ml 450 ml Balance 250 ml -350 ml 30 ml Exam Constitutional: alert, frail, oriented Psych: no complaints Neck: non-tender, supple Respiratory: clear to auscultation, normal air movement Cardiovascular: regular rate and rhythm Gastrointestinal: soft Musculoskeletal: nl extremities to inspection Results Result Diagram: 07/23/17 0507 07/23/17 0507 Results 24 hrs Laboratory Tests Test 07/23/17 05:07 White Blood Count 3.4 L Red Blood Count 2.40 L Hemoglobin 8.7 L Hematocrit 26.5 L Mean Corpuscular Volume 110.4 H Mean Corpuscular Hemoglobin 36.3 H Mean Corpuscular Hemoglobin Concent 32.8 Red Cell Distribution Width 20.6 H Platelet Count 77 L Mean Platelet Volume 12.4 H Neutrophils % 70.9 Lymphocytes % 18.1 Monocytes % 8.6 Eosinophils % 0.9 Basophils % 0.3 Nucleated Red Blood Cells % 0.0 Neutrophils # 2.4 Lymphocytes # 0.6 L Monocytes # 0.3 Eosinophils # 0.0 Basophils # 0.0 Nucleated Red Blood Cells # 0.0 Sodium Level 136 Potassium Level 4.1 Chloride Level 106 Carbon Dioxide Level 22 Anion Gap 12 Blood Urea Nitrogen 33 H Creatinine 0.99 Glucose Level 87 Calcium Level 7.9 L Total Bilirubin 0.6 Direct Bilirubin 0.00 Indirect Bilirubin 0.6 Aspartate Amino Transf (AST/SGOT) 199 #H Alanine Aminotransferase (ALT/SGPT) 138 H Alkaline Phosphatase 156 #H Total Protein 6.6 Albumin 2.6 L Globulin 4.00 H Albumin/Globulin Ratio 0.65 Medications Medications Current Medications Brimonidine Tartrate (Alphagan 0.2%) 1 drop Q8 BOTH EYES Last administered on 07/21/17 14:08; Admin Dose 1 DROP; Start 07/14/17 at 14:00 Cyanocobalamin (Vitamin B12) 1,000 mcg DAILY PO Last administered on 09:31; Admin Dose 1,000 MCG; Start 07/15/17 at 09:00 Febuxostat (Uloric) 80 mg DAILY PO Last administered on 07/23/17 09:32; Admin Dose 80 MG; Start 07/14/17 at 13:00 Latanoprost (Xalatan) 1 drop QHS BOTH EYES Last administered on 07/22/17 20: 55; Admin Dose 1 DROP; Start 07/14/17 at 21:00 Metoprolol Tartrate (Lopressor) 25 mg BID PO Last administered on 07/23/17 09 :39; Admin Dose 25 MG; Start 07/14/17 at 13:00 Pregabalin (Lyrica) 50 mg BID PO Last administered on 07/23/17 09:39; Admin Dose 50 MG; Start 07/14/17 at 21:00 Lorazepam (Ativan) 0.25 mg BID PRN PO ANXIETY Last administered on 07/18/17 17:12; Admin Dose 0.25 MG; Start 07/14/17 at 13:00 Ondansetron HCl (Zofran Inj) 4 mg Q6H PRN IV NAUSEA AND/OR VOMITING Last administered on 07/18/17 13:05; Admin Dose 4 MG; Start 07/14/17 at 13:00 Acetaminophen/ Hydrocodone Bitart ([place] (5/325)) 1 tab Q6H PRN PO MODERATE PAIN LEVEL 4-6 Last administered on 07/23/17 09:33; Admin Dose 1 TAB; Start 07/14/17 at 13:00 Docusate Sodium (Colace) 100 mg Q12H PRN PO CONSTIPATION Last administered on 07/22/17 05:44; Admin Dose 100 MG; Start 07/14/17 at 13:00 Zolpidem Tartrate (Ambien) 5 mg QHS PRN PO SLEEP; Start 07/14/17 at 13:00 Memantine (Namenda) 5 mg BID PO Last administered on 07/23/17 09:31; Admin Dose 5 MG; Start 07/14/17 at 21:00 Aspirin (Halfprin) 81 mg DAILY PO Last administered on 07/23/17 09:31; Admin Dose 81 MG; Start 07/15/17 at 09:00 Atorvastatin Calcium (Lipitor) 10 mg HS PO Last administered on 07/22/17 20: 56; Admin Dose 10 MG; Start 07/15/17 at 21:00 Neomycin/ Polymyxin/ Bacitracin (Neosporin Topical Oint) 1 applic DAILY TOP Last administered on 07/23/17 09:40; Admin Dose 1 APPLIC; Start 07/15/17 at 11:00 Epoetin Rosendo (Epogen (Esrd)) 10,000 units TuThSa@17 SC Last administered on 18:40; Admin Dose 10,000 UNITS; Start 07/17/17 at 17:00 Magnesium Hydroxide (Milk Of Mag) 30 ml BID PRN PO CONSTIPATION Last administered on 07/22/17 05:44; Admin Dose 30 ML; Start 07/17/17 at 10:30 Bisacodyl (Dulcolax Supp) 10 mg DAILY PRN [place] CONSTIPATION; Start 07/17/17 at 10:30 Acetaminophen (Tylenol Tab) 650 mg Q6H PRN PO PAIN AND OR ELEVATED TEMP Last administered on 07/21/17 20:17; Admin Dose 650 MG; Start 07/18/17 at 20:30 YANDY MCDERMOTT MD Jul 23, 2017 11:18
--- NOTE | 2017-07-23 12:01 | CONS ---
Date/Time of Note Date/Time of Note DATE: 07/23/17 TIME: 11:58 Assessment/Plan Assessment/Plan Chief Complaint/Hosp Course dictated [id number] fluid overload with pulm edema. decrease iv fluid, administewr lasix, f/u cxr tomorrow. Problems: Additional Assessment/Plan Assessment recommendations; 1. Patient admitted with generalized weakness resulting multiple falls. 2. Patient developed shortness of breath due to noncardiogenic pulmonary edema with marked clinical and radiological improvement. Responded well to Lasix. 3. Myelodysplastic syndrome with pancytopenia. Status post bone marrow biopsy. 4. Improving hypoxemia. Continue current treatment. Patient currently in the process of possibly being transferred to a rehab center. Consultation Date/Type/Reason Admit Date/Time Jul 14, 2017 at 10:41 Initial Consult Date 07/19/17 Type of Consultation: Pulmonary Referring Provider: YANDY MCDERMOTT MD 24 HR Interval Summary Free Text/Dictation Patient's condition is stable. Denies any shortness of breath, chest pain, coughing. Patient is completely awake and alert. Able to talk. Has remained hemodynamically stable. General exam; elderly male, awake and alert. Currently in no distress. Exam/Review of Systems Vital Signs Vitals Vital Signs Date Time Temp Pulse Resp B/P Pulse Ox O2 Delivery O2 Flow Rate FiO2 07/23/17 02:15 98.6 88 18 100/56 98 07/22/17 20:47 Nasal Cannula 4.0 07/20/17 20:59 100 Intake and Output 07/22/17 07/22/17 07/23/17 15:00 23:00 07:00 Intake Total 250 ml 600 ml 480 ml Output Total 950 ml 450 ml Balance 250 ml -350 ml 30 ml Exam HEENT exam; supple neck, no JVD. No lymphadenopathy. Midline trachea. No thyromegaly. Patient bilateral intraocular lens implants. Has multiple carious teeth. Chest exam; clear to auscultation. S1-S2 audible, no murmurs. Regular rhythm. Abdomen exam; soft, nontender. No organomegaly. Bowel sounds audible. Extremity exam; no peripheral edema. CLASSIFICATION CONTROL CLERK exam; no focal deficit. Results Result Diagram: 07/23/17 0507 07/23/17 0507 Results 24 hrs Laboratory Tests Test 07/23/17 05:07 White Blood Count 3.4 L Red Blood Count 2.40 L Hemoglobin 8.7 L Hematocrit 26.5 L Mean Corpuscular Volume 110.4 H Mean Corpuscular Hemoglobin 36.3 H Mean Corpuscular Hemoglobin Concent 32.8 Red Cell Distribution Width 20.6 H Platelet Count 77 L Mean Platelet Volume 12.4 H Neutrophils % 70.9 Lymphocytes % 18.1 Monocytes % 8.6 Eosinophils % 0.9 Basophils % 0.3 Nucleated Red Blood Cells % 0.0 Neutrophils # 2.4 Lymphocytes # 0.6 L Monocytes # 0.3 Eosinophils # 0.0 Basophils # 0.0 Nucleated Red Blood Cells # 0.0 Sodium Level 136 Potassium Level 4.1 Chloride Level 106 Carbon Dioxide Level 22 Anion Gap 12 Blood Urea Nitrogen 33 H Creatinine 0.99 Glucose Level 87 Calcium Level 7.9 L Total Bilirubin 0.6 Direct Bilirubin 0.00 Indirect Bilirubin 0.6 Aspartate Amino Transf (AST/SGOT) 199 #H Alanine Aminotransferase (ALT/SGPT) 138 H Alkaline Phosphatase 156 #H Total Protein 6.6 Albumin 2.6 L Globulin 4.00 H Albumin/Globulin Ratio 0.65 Medications Medications Current Medications Brimonidine Tartrate (Alphagan 0.2%) 1 drop Q8 BOTH EYES Last administered on 07/21/17 14:08; Admin Dose 1 DROP; Start 07/14/17 at 14:00 Cyanocobalamin (Vitamin B12) 1,000 mcg DAILY PO Last administered on 09:31; Admin Dose 1,000 MCG; Start 07/15/17 at 09:00 Febuxostat (Uloric) 80 mg DAILY PO Last administered on 07/23/17 09:32; Admin Dose 80 MG; Start 07/14/17 at 13:00 Latanoprost (Xalatan) 1 drop QHS BOTH EYES Last administered on 07/22/17 20: 55; Admin Dose 1 DROP; Start 07/14/17 at 21:00 Metoprolol Tartrate (Lopressor) 25 mg BID PO Last administered on 07/23/17 09 :39; Admin Dose 25 MG; Start 07/14/17 at 13:00 Lorazepam (Ativan) 0.25 mg BID PRN PO ANXIETY Last administered on 07/18/17 17:12; Admin Dose 0.25 MG; Start 07/14/17 at 13:00 Ondansetron HCl (Zofran Inj) 4 mg Q6H PRN IV NAUSEA AND/OR VOMITING Last administered on 07/18/17 13:05; Admin Dose 4 MG; Start 07/14/17 at 13:00 Acetaminophen/ Hydrocodone Bitart ([place] (5/325)) 1 tab Q6H PRN PO MODERATE PAIN LEVEL 4-6 Last administered on 07/23/17 09:33; Admin Dose 1 TAB; Start 07/14/17 at 13:00 Docusate Sodium (Colace) 100 mg Q12H PRN PO CONSTIPATION Last administered on 07/22/17 05:44; Admin Dose 100 MG; Start 07/14/17 at 13:00 Zolpidem Tartrate (Ambien) 5 mg QHS PRN PO SLEEP; Start 07/14/17 at 13:00 Memantine (Namenda) 5 mg BID PO Last administered on 07/23/17 09:31; Admin Dose 5 MG; Start 07/14/17 at 21:00 Aspirin (Halfprin) 81 mg DAILY PO Last administered on 07/23/17 09:31; Admin Dose 81 MG; Start 07/15/17 at 09:00 Neomycin/ Polymyxin/ Bacitracin (Neosporin Topical Oint) 1 applic DAILY TOP Last administered on 07/23/17 09:40; Admin Dose 1 APPLIC; Start 07/15/17 at 11:00 Epoetin Rosendo (Epogen (Esrd)) 10,000 units TuThSa@17 SC Last administered on 18:40; Admin Dose 10,000 UNITS; Start 07/17/17 at 17:00 Magnesium Hydroxide (Milk Of Mag) 30 ml BID PRN PO CONSTIPATION Last administered on 07/22/17 05:44; Admin Dose 30 ML; Start 07/17/17 at 10:30 Bisacodyl (Dulcolax Supp) 10 mg DAILY PRN [place] CONSTIPATION; Start 07/17/17 at 10:30 Acetaminophen (Tylenol Tab) 650 mg Q6H PRN PO PAIN AND OR ELEVATED TEMP Last administered on 07/21/17 20:17; Admin Dose 650 MG; Start 07/18/17 at 20:30 REECE VELOZ Jul 23, 2017 12:01
[2017-07-23 14:00] VITALS: BP 101/61; RESP 19
[2017-07-23 16:13] VITALS: BP 99/54; RESP 19
--- NOTE | 2017-07-23 16:27 | PN ---
Date/Time of Note Date/Time of Note DATE: 07/23/17 TIME: 16:24 Assessment/Plan VTE Prophylaxis VTE Prophylaxis Intervention: other (aspirin) Lines/Catheters IV [facility] Type (from [facility] Saline Lock Urinary Cath still in place: Yes (condom catheter) Reason Cath still needed: other (indicate) (debility) Assessment/Plan Chief Complaint/Hosp Course 87 yo man known to me as an outpatient. 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 This year he had pancytopenia with normal B12 and folate, borderline iron and a low EPO assay. Atrial of iron was unsuccessful and he is now getting Procrit trial with slight rise of 1 gm/dl noted over a six week period. 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 Today he was admitted via the ER after falling at home. Note that Dr. Moreno had been reducing the amount of antihypertensives that he took. Pt has also been encouraged to eat better but family says that he eats poorly and is extremely inactive. The fall at home was likely due to slipping and pt denies LOC, chest pain or palpitations. Troponin elevation noted and conservative medical treatment is advised. This is very reasonable given age and poor performance status. Hgb is still low at ~ 7 1/2. Problems: Assessment/Plan Bone marrow is not final but no lymphoma, leukemia or carcinoma was seen. MDS still seems the most likely diagnosis. Continue current plans. Encourage nutrition and ambulation. Continue EPO. Continue Rx of UTI. Agree that acute rehab would be a good site for placement. Subjective 24 Hr Interval Summary Free Text/Dictation Pt is sleeping now. Exam/Review of Systems Vital Signs Vitals Vital Signs Date Time Temp Pulse Resp B/P Pulse Ox O2 Delivery O2 Flow Rate FiO2 07/23/17 16:13 98.0 89 19 99/54 98 07/23/17 08:00 Nasal Cannula 2.0 07/20/17 20:59 100 Intake and Output 07/22/17 07/22/17 07/23/17 15:00 23:00 07:00 Intake Total 250 ml 600 ml 480 ml Output Total 950 ml 450 ml Balance 250 ml -350 ml 30 ml Exam Pt sleeping comfortably. Results Result Diagram: 07/23/17 0507 07/23/17 0507 Results 24 hrs Laboratory Tests Test 07/23/17 05:07 White Blood Count 3.4 L Red Blood Count 2.40 L Hemoglobin 8.7 L Hematocrit 26.5 L Mean Corpuscular Volume 110.4 H Mean Corpuscular Hemoglobin 36.3 H Mean Corpuscular Hemoglobin Concent 32.8 Red Cell Distribution Width 20.6 H Platelet Count 77 L Mean Platelet Volume 12.4 H Neutrophils % 70.9 Lymphocytes % 18.1 Monocytes % 8.6 Eosinophils % 0.9 Basophils % 0.3 Nucleated Red Blood Cells % 0.0 Neutrophils # 2.4 Lymphocytes # 0.6 L Monocytes # 0.3 Eosinophils # 0.0 Basophils # 0.0 Nucleated Red Blood Cells # 0.0 Sodium Level 136 Potassium Level 4.1 Chloride Level 106 Carbon Dioxide Level 22 Anion Gap 12 Blood Urea Nitrogen 33 H Creatinine 0.99 Glucose Level 87 Calcium Level 7.9 L Total Bilirubin 0.6 Direct Bilirubin 0.00 Indirect Bilirubin 0.6 Aspartate Amino Transf (AST/SGOT) 199 #H Alanine Aminotransferase (ALT/SGPT) 138 H Alkaline Phosphatase 156 #H Total Protein 6.6 Albumin 2.6 L Globulin 4.00 H Albumin/Globulin Ratio 0.65 Medications Medications Current Medications Brimonidine Tartrate (Alphagan 0.2%) 1 drop Q8 BOTH EYES Last administered on 07/21/17 14:08; Admin Dose 1 DROP; Start 07/14/17 at 14:00 Cyanocobalamin (Vitamin B12) 1,000 mcg DAILY PO Last administered on 09:31; Admin Dose 1,000 MCG; Start 07/15/17 at 09:00 Febuxostat (Uloric) 80 mg DAILY PO Last administered on 07/23/17 09:32; Admin Dose 80 MG; Start 07/14/17 at 13:00 Latanoprost (Xalatan) 1 drop QHS BOTH EYES Last administered on 07/22/17 20: 55; Admin Dose 1 DROP; Start 07/14/17 at 21:00 Metoprolol Tartrate (Lopressor) 25 mg BID PO Last administered on 07/23/17 09 :39; Admin Dose 25 MG; Start 07/14/17 at 13:00 Lorazepam (Ativan) 0.25 mg BID PRN PO ANXIETY Last administered on 07/18/17 17:12; Admin Dose 0.25 MG; Start 07/14/17 at 13:00 Ondansetron HCl (Zofran Inj) 4 mg Q6H PRN IV NAUSEA AND/OR VOMITING Last administered on 07/18/17 13:05; Admin Dose 4 MG; Start 07/14/17 at 13:00 Acetaminophen/ Hydrocodone Bitart ([place] (5/325)) 1 tab Q6H PRN PO MODERATE PAIN LEVEL 4-6 Last administered on 07/23/17 09:33; Admin Dose 1 TAB; Start 07/14/17 at 13:00 Docusate Sodium (Colace) 100 mg Q12H PRN PO CONSTIPATION Last administered on 07/22/17 05:44; Admin Dose 100 MG; Start 07/14/17 at 13:00 Zolpidem Tartrate (Ambien) 5 mg QHS PRN PO SLEEP; Start 07/14/17 at 13:00 Memantine (Namenda) 5 mg BID PO Last administered on 07/23/17 09:31; Admin Dose 5 MG; Start 07/14/17 at 21:00 Aspirin (Halfprin) 81 mg DAILY PO Last administered on 07/23/17 09:31; Admin Dose 81 MG; Start 07/15/17 at 09:00 Neomycin/ Polymyxin/ Bacitracin (Neosporin Topical Oint) 1 applic DAILY TOP Last administered on 07/23/17 09:40; Admin Dose 1 APPLIC; Start 07/15/17 at 11:00 Epoetin Rosendo (Epogen (Esrd)) 10,000 units TuThSa@17 SC Last administered on 18:40; Admin Dose 10,000 UNITS; Start 07/17/17 at 17:00 Magnesium Hydroxide (Milk Of Mag) 30 ml BID PRN PO CONSTIPATION Last administered on 07/22/17 05:44; Admin Dose 30 ML; Start 07/17/17 at 10:30 Bisacodyl (Dulcolax Supp) 10 mg DAILY PRN [place] CONSTIPATION; Start 07/17/17 at 10:30 Acetaminophen (Tylenol Tab) 650 mg Q6H PRN PO PAIN AND OR ELEVATED TEMP Last administered on 07/21/17 20:17; Admin Dose 650 MG; Start 07/18/17 at 20:30 CHERRY JANE MD Jul 23, 2017 16:27
[2017-07-23 20:12] VITALS: BP 105/76; RESP 20
[2017-07-23] MEDS: LATANOPROST 0.005% 2.5 ML OPH BOTH EYES SCH (20:34)
[2017-07-24 02:19] VITALS: BP 108/54; RESP 20
[2017-07-24] MEDS: BRIMONIDINE 0.2% 5 ML BTL BOTH EYES SCH ×3 (06:00→21:26)
[2017-07-24 08:30] VITALS: BP 127/56; PULSE 67
[2017-07-24] MEDS: ASPIRIN (EC) 81 MG TAB PO SCH (08:35)
[2017-07-24] MEDS: FEBUXOSTAT 40 MG TABLET PO SCH (08:35)
[2017-07-24] MEDS: CYANOCOBALAMIN 500 MCG TAB PO SCH (08:35)
[2017-07-24] MEDS: HYDROCODONE/APAP (5/325) TAB PO PRN ×3 (08:35→23:19)
[2017-07-24] MEDS: METOPROLOL 25 MG TAB PO SCH ×2 (08:36→21:00)
[2017-07-24] MEDS: MEMANTINE 5 MG TAB PO SCH ×2 (08:36→20:13)
[2017-07-24] MEDS: NEOMYC/POLYMYX/BACIT 30 GM OINT TOP SCH (08:37)
--- NOTE | 2017-07-24 08:56 | PN ---
Date/Time of Note Date/Time of Note DATE: 07/24/17 TIME: 08:51 Assessment/Plan VTE Prophylaxis VTE Prophylaxis Intervention: SCD's Lines/Catheters IV C[facility]ter Type (from [facility] Saline Lock Urinary Cath still in place: Yes (condom catheter) Reason Cath still needed: urinary retention Assessment/Plan Chief Complaint/Hosp Course 1. He is awake and alert this morning , his blood pressure is higher and he is requiring less oxygen. The last chest x-ray done showed improved aeration with decreased bilateral infiltrates. 2. Pancytopenia . Hematology w/u is in progress , he has gotten some blood transfusions. He had a bone marrow aspirate and biopsy 6 days ago . The final results are pending. The preliminary results of the bone marrow aspirate and biopsy show a hypocellular bone marrow. Possible MDS; however, pathology is waiting for some molecular studies. 3. hypertension , BP is lower , he is off BP meds . 4. dilated ventricles on CT scan of the brain, r/o Normal pressure hydrocephalus . Neuro does not think patient has a normal pressure hydrocephalus . 5. lumbar spine fractures , 1 of the lumbar spine fractures is acute. He also has some lumbar disc disease with stenosis. He is not complaining of pain. 6. He has a urinary tract infection . I have spoken with the acute rehab unit. If his oxygen requirements continue to decrease then he may be a candidate for transfer to the acute rehab unit. Problems: Subjective 24 Hr Interval Summary Free Text/Dictation He is awake and alert today. His son Marshall is in the room with him. The patient denies pain; however, as we lift his left arm he complains of pain with motion. Constitutional: poor po Respiratory: cough, no complaints Cardiovascular: no complaints Gastrointestinal: no complaints Genitourinary: no complaints Musculoskeletal: bone/joint pain Exam/Review of Systems Vital Signs Vitals Vital Signs Date Time Temp Pulse Resp B/P Pulse Ox O2 Delivery O2 Flow Rate FiO2 07/24/17 02:19 98.3 89 20 108/54 96 07/23/17 20:48 Nasal Cannula 2.0 07/20/17 20:59 100 Intake and Output 07/23/17 07/23/17 07/24/17 15:00 23:00 07:00 Intake Total 740 ml 600 ml Output Total 1500 ml 600 ml Balance -760 ml 0 ml Exam He has generalized weakness Constitutional: alert, frail, oriented Respiratory: clear to auscultation, normal air movement Cardiovascular: regular rate and rhythm Gastrointestinal: non-tender, soft Musculoskeletal: nl extremities to inspection Results Result Diagram: 07/23/17 0507 07/23/17 0507 Results 24 hrs Laboratory Tests Test 07/24/17 06:35 Lab Scanned Report REFERENCE LAB Medications Medications Current Medications Brimonidine Tartrate ([place] 0.2%) 1 drop Q8 BOTH EYES Last administered on 07/23/17 20:32; Admin Dose 1 DROP; Start 07/14/17 at 14:00 Cyanocobalamin (Vitamin B12) 1,000 mcg DAILY PO Last administered on 08:35; Admin Dose 1,000 MCG; Start 07/15/17 at 09:00 Febuxostat (Uloric) 80 mg DAILY PO Last administered on 07/24/17 08:35; Admin Dose 80 MG; Start 07/14/17 at 13:00 Latanoprost (Xalatan) 1 drop QHS BOTH EYES Last administered on 07/23/17 20: 34; Admin Dose 1 DROP; Start 07/14/17 at 21:00 Metoprolol Tartrate (Lopressor) 25 mg BID PO Last administered on 07/24/17 08 :36; Admin Dose 25 MG; Start 07/14/17 at 13:00 Lorazepam (Ativan) 0.25 mg BID PRN PO ANXIETY Last administered on 07/18/17 17:12; Admin Dose 0.25 MG; Start 07/14/17 at 13:00 Ondansetron HCl (Zofran Inj) 4 mg Q6H PRN IV NAUSEA AND/OR VOMITING Last administered on 07/18/17 13:05; Admin Dose 4 MG; Start 07/14/17 at 13:00 Acetaminophen/ Hydrocodone Bitart ([place] (5/325)) 1 tab Q6H PRN PO MODERATE PAIN LEVEL 4-6 Last administered on 07/24/17 08:35; Admin Dose 1 TAB; Start 07/14/17 at 13:00 Docusate Sodium (Colace) 100 mg Q12H PRN PO CONSTIPATION Last administered on 07/22/17 05:44; Admin Dose 100 MG; Start 07/14/17 at 13:00 Zolpidem Tartrate (Ambien) 5 mg QHS PRN PO SLEEP; Start 07/14/17 at 13:00 Memantine (Namenda) 5 mg BID PO Last administered on 07/24/17 08:36; Admin Dose 5 MG; Start 07/14/17 at 21:00 Aspirin (Halfprin) 81 mg DAILY PO Last administered on 07/24/17 08:35; Admin Dose 81 MG; Start 07/15/17 at 09:00 Neomycin/ Polymyxin/ Bacitracin (Neosporin Topical Oint) 1 applic DAILY TOP Last administered on 07/24/17 08:37; Admin Dose 1 APPLIC; Start 07/15/17 at 11:00 Epoetin Rosendo (Epogen (Esrd)) 10,000 units TuThSa@17 SC Last administered on 18:40; Admin Dose 10,000 UNITS; Start 07/17/17 at 17:00 Magnesium Hydroxide (Milk Of Mag) 30 ml BID PRN PO CONSTIPATION Last administered on 07/22/17 05:44; Admin Dose 30 ML; Start 07/17/17 at 10:30 Bisacodyl (Dulcolax Supp) 10 mg DAILY PRN [place] CONSTIPATION; Start 07/17/17 at 10:30 Acetaminophen (Tylenol Tab) 650 mg Q6H PRN PO PAIN AND OR ELEVATED TEMP Last administered on 07/21/17 20:17; Admin Dose 650 MG; Start 07/18/17 at 20:30 YANDY MCDERMOTT MD Jul 24, 2017 08:56
[2017-07-24] MEDS: ACETAMINOPHEN 325 MG TAB PO PRN (12:49)
--- NOTE | 2017-07-24 12:56 | CONS ---
Date/Time of Note Date/Time of Note DATE: 07/24/17 TIME: 12:55 Consult Date/Type/Reason Admit Date/Time Jul 14, 2017 at 10:41 Initial Consult Date 07/15/17 Type of Consultation: Pulmonary Ordering Provider: YANDY MCDERMOTT MD Subjective Patient comfortable this morning. Denies shortness of breath Objective Vital Signs Date Time Temp Pulse Resp B/P Pulse Ox O2 Delivery O2 Flow Rate FiO2 07/24/17 12:12 Nasal Cannula 2.0 07/24/17 08:30 67 127/56 07/24/17 02:19 98.3 20 96 07/20/17 20:59 100 Intake and Output 07/23/17 07/23/17 07/24/17 15:00 23:00 07:00 Intake Total 740 ml 600 ml Output Total 1500 ml 600 ml Balance -760 ml 0 ml Exam GENERAL: VITAL SIGNS: per chart NECK: Supple. No JVD or lymphadenopathy. CARDIAC EXAM: S1, S2. No added sounds or murmurs. CHEST: clear bilaterally, No added sounds, rales or wheezes ABDOMEN: Soft, nontender. No guarding or rebound. EXTREMITIES: No cyanosis, clubbing or edema. NEUROLOGIC: Generalized weakness. No focal deficits. Results/Medications Result Diagram: 07/23/17 0507 07/23/17 0507 Results 24 hrs Laboratory Tests Test 07/24/17 06:35 Lab Scanned Report REFERENCE LAB Medications Current Medications Brimonidine Tartrate (Alphagan 0.2%) 1 drop Q8 BOTH EYES Last administered on 07/23/17 20:32; Admin Dose 1 DROP; Start 07/14/17 at 14:00 Cyanocobalamin (Vitamin B12) 1,000 mcg DAILY PO Last administered on 08:35; Admin Dose 1,000 MCG; Start 07/15/17 at 09:00 Febuxostat (Uloric) 80 mg DAILY PO Last administered on 07/24/17 08:35; Admin Dose 80 MG; Start 07/14/17 at 13:00 Latanoprost (Xalatan) 1 drop QHS BOTH EYES Last administered on 07/23/17 20: 34; Admin Dose 1 DROP; Start 07/14/17 at 21:00 Metoprolol Tartrate (Lopressor) 25 mg BID PO Last administered on 07/24/17 08 :36; Admin Dose 25 MG; Start 07/14/17 at 13:00 Lorazepam (Ativan) 0.25 mg BID PRN PO ANXIETY Last administered on 07/18/17 17:12; Admin Dose 0.25 MG; Start 07/14/17 at 13:00 Ondansetron HCl (Zofran Inj) 4 mg Q6H PRN IV NAUSEA AND/OR VOMITING Last administered on 07/18/17 13:05; Admin Dose 4 MG; Start 07/14/17 at 13:00 Acetaminophen/ Hydrocodone Bitart ([place] (5/325)) 1 tab Q6H PRN PO MODERATE PAIN LEVEL 4-6 Last administered on 07/24/17 08:35; Admin Dose 1 TAB; Start 07/14/17 at 13:00 Docusate Sodium (Colace) 100 mg Q12H PRN PO CONSTIPATION Last administered on 07/22/17 05:44; Admin Dose 100 MG; Start 07/14/17 at 13:00 Zolpidem Tartrate (Ambien) 5 mg QHS PRN PO SLEEP; Start 07/14/17 at 13:00 Memantine (Namenda) 5 mg BID PO Last administered on 07/24/17 08:36; Admin Dose 5 MG; Start 07/14/17 at 21:00 Aspirin (Halfprin) 81 mg DAILY PO Last administered on 07/24/17 08:35; Admin Dose 81 MG; Start 07/15/17 at 09:00 Neomycin/ Polymyxin/ Bacitracin (Neosporin Topical Oint) 1 applic DAILY TOP Last administered on 07/24/17 08:37; Admin Dose 1 APPLIC; Start 07/15/17 at 11:00 Epoetin Rosendo (Epogen (Esrd)) 10,000 units TuThSa@17 SC Last administered on 18:40; Admin Dose 10,000 UNITS; Start 07/17/17 at 17:00 Magnesium Hydroxide (Milk Of Mag) 30 ml BID PRN PO CONSTIPATION Last administered on 07/22/17 05:44; Admin Dose 30 ML; Start 07/17/17 at 10:30 Bisacodyl (Dulcolax Supp) 10 mg DAILY PRN [place] CONSTIPATION; Start 07/17/17 at 10:30 Acetaminophen (Tylenol Tab) 650 mg Q6H PRN PO PAIN AND OR ELEVATED TEMP Last administered on 07/24/17t 12:49; Admin Dose 650 MG; Start 07/18/17 at 20:30 Assessment/Plan Chief Complaint/Hosp Course Assessment 1. Patient admitted with generalized weakness resulting multiple falls. 2. Patient developed shortness of breath due to noncardiogenic pulmonary edema with marked clinical and radiological improvement. Responded well to Lasix. 3. Myelodysplastic syndrome with pancytopenia. Status post bone marrow biopsy. 4. Improving hypoxemia. Plan 1. Continue aspiration precautions 2. Gentle diuresis as tolerated 3. Physical therapy Problems: PAPA BUSH MD[facility] Jul 24, 2017 12:56
[2017-07-24 14:31] VITALS: BP 109/56; RESP 18
--- NOTE | 2017-07-24 14:57 | PN ---
Date/Time of Note Date/Time of Note DATE: 07/24/17 TIME: 14:53 Assessment/Plan VTE Prophylaxis VTE Prophylaxis Intervention: other (aspirin) Lines/Catheters IV [facility]ter [facility]from [facility] [facility] Assessment/Plan Chief Complaint/Hosp Course 87 yo man known to me as an outpatient. 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 This year he had pancytopenia with normal B12 and folate, borderline iron and a low EPO assay. Atrial of iron was unsuccessful and he is now getting Procrit trial with slight rise of 1 gm/dl noted over a six week period. 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 Today he was admitted via the ER after falling at home. Note that Dr. Moreno had been reducing the amount of antihypertensives that he took. Pt has also been encouraged to eat better but family says that he eats poorly and is extremely inactive. The fall at home was likely due to slipping and pt denies LOC, chest pain or palpitations. Troponin elevation noted and conservative medical treatment is advised. This is very reasonable given age and poor performance status. Hgb is still low at ~ 7 1/2. Problems: Assessment/Plan Pt is doing better in terms of his breathing. I agree with Dr. Moreno that Acute Rehab is the best place for him when he is ready to be transferred. Marrow negative for malignancies. Continue epoietin for the anemia, likely due to MDS. Subjective 24 Hr Interval Summary Free Text/Dictation Pt is tired but more alert. Exam/Review of Systems Vital Signs Vitals Vital Signs Date Time Temp Pulse Resp B/P Pulse Ox O2 Delivery O2 Flow Rate FiO2 07/24/17 14:31 97.6 88 18 109/56 96 07/24/17 12:12 Nasal Cannula 2.0 07/20/17 20:59 100 Intake and Output 07/23/17 07/23/17 07/24/17 15:00 23:00 07:00 Intake Total 740 ml 600 ml Output Total 1500 ml 600 ml Balance -760 ml 0 ml Exam Constitutional: alert Head: normocephalic, other (pallor) ENMT: nl external ears & nose Neck: supple Respiratory: clear to auscultation Cardiovascular: regular rate and rhythm Gastrointestinal: soft Results Result Diagram: 07/23/17 0507 07/23/17 0507 Results 24 hrs Laboratory Tests Test 07/24/17 06:35 Lab Scanned Report REFERENCE LAB Medications Medications Current Medications Brimonidine Tartrate (Alphagan 0.2%) 1 drop Q8 BOTH EYES Last administered on 07/24/17 14:11; Admin Dose 1 DROP; Start 07/14/17 at 14:00 Cyanocobalamin (Vitamin B12) 1,000 mcg DAILY PO Last administered on 08:35; Admin Dose 1,000 MCG; Start 07/15/17 at 09:00 Febuxostat (Uloric) 80 mg DAILY PO Last administered on 07/24/17 08:35; Admin Dose 80 MG; Start 07/14/17 at 13:00 Latanoprost (Xalatan) 1 drop QHS BOTH EYES Last administered on 07/23/17 20: 34; Admin Dose 1 DROP; Start 07/14/17 at 21:00 Metoprolol Tartrate (Lopressor) 25 mg BID PO Last administered on 07/24/17 08 :36; Admin Dose 25 MG; Start 07/14/17 at 13:00 Lorazepam (Ativan) 0.25 mg BID PRN PO ANXIETY Last administered on 07/18/17 17:12; Admin Dose 0.25 MG; Start 07/14/17 at 13:00 Ondansetron HCl (Zofran Inj) 4 mg Q6H PRN IV NAUSEA AND/OR VOMITING Last administered on 07/18/17 13:05; Admin Dose 4 MG; Start 07/14/17 at 13:00 Acetaminophen/ Hydrocodone Bitart ([place] (5/325)) 1 tab Q6H PRN PO MODERATE PAIN LEVEL 4-6 Last administered on 07/24/17 14:09; Admin Dose 1 TAB; Start 07/14/17 at 13:00 Docusate Sodium (Colace) 100 mg Q12H PRN PO CONSTIPATION Last administered on 07/22/17 05:44; Admin Dose 100 MG; Start 07/14/17 at 13:00 Zolpidem Tartrate (Ambien) 5 mg QHS PRN PO SLEEP; Start 07/14/17 at 13:00 Memantine (Namenda) 5 mg BID PO Last administered on 07/24/17 08:36; Admin Dose 5 MG; Start 07/14/17 at 21:00 Aspirin (Halfprin) 81 mg DAILY PO Last administered on 07/24/17 08:35; Admin Dose 81 MG; Start 07/15/17 at 09:00 Neomycin/ Polymyxin/ Bacitracin (Neosporin Topical Oint) 1 applic DAILY TOP Last administered on 07/24/17 08:37; Admin Dose 1 APPLIC; Start 07/15/17 at 11:00 Epoetin Rosendo (Epogen (Esrd)) 10,000 units TuThSa@17 SC Last administered on 18:40; Admin Dose 10,000 UNITS; Start 07/17/17 at 17:00 Magnesium Hydroxide (Milk Of Mag) 30 ml BID PRN PO CONSTIPATION Last administered on 07/22/17 05:44; Admin Dose 30 ML; Start 07/17/17 at 10:30 Bisacodyl (Dulcolax Supp) 10 mg DAILY PRN [place] CONSTIPATION; Start 07/17/17 at 10:30 Acetaminophen (Tylenol Tab) 650 mg Q6H PRN PO PAIN AND OR ELEVATED TEMP Last administered on 07/24/17 12:49; Admin Dose 650 MG; Start 07/18/17 at 20:30 CHERRY JANE MD Jul 24, 2017 14:57
[2017-07-24] MEDS: EPOETIN 10000 UNITS/1 ML INJ (ESRD) SC SCH (17:33)
--- NOTE | 2017-07-24 18:12 | CONS ---
Date/Time of Note Date/Time of Note DATE: 07/24/17 TIME: 17:47 Assessment/Plan Assessment/Plan Chief Complaint/Hosp Course Patient has an acute L1 compression fracture. We have requested a CORONA brace to wear when he is out of bed (Cruciform Anterior Spinal Hyperextension). He may be mobilized with physical therapy after the brace is fitted. He will need to wear the brace for a total of 3 months. If he is able to he can follow-up with us in clinic on a monthly basis for lumbar AP and lateral x-rays. We will see him tomorrow after he has been fitted for his brace. Problems: Additional Assessment/Plan Patient is also being treated for pancytopenia, hypertension, and urinary tract infection. Patient also apparently is a candidate for acute rehab if his oxygen requirements continued to decrease. Consultation Date/Type/Reason Admit Date/Time Jul 14, 2017 at 10:41 Initial Consult Date 07/15/17 Type of Consultation: Ortho-Spine Reason for Consultation L1 fracture Referring Provider: YANDY MCDERMOTT MD 24 HR Interval Summary Free Text/Dictation I was asked by Dr. Mcdermott to see this patient for an L1 fracture. Patient apparently fell on 07/14/2017 when he was trying to get out of bed. At present he does not complain of any low back pain. He denies any radicular leg complaints. He has not been ambulatory due to recent fracture. Recent lumbar MRI did show an acute L1 fracture. Patient is awake but most of the history is obtained from the chart and staff. Exam/Review of Systems Vital Signs Vitals Vital Signs Date Time Temp Pulse Resp B/P Pulse Ox O2 Delivery O2 Flow Rate FiO2 07/24/17 14:31 97.6 88 18 109/56 96 07/24/17 12:12 Nasal Cannula 2.0 07/20/17 20:59 100 Intake and Output 07/23/17 07/23/17 07/24/17 15:00 23:00 07:00 Intake Total 740 ml 600 ml Output Total 1500 ml 600 ml Balance -760 ml 0 ml Exam On examination he is tender over L1-L2 midline and paraspinal muscles. He is supine in bed and I did not attempt to get him out of bed due to the fracture. Lower extremity sensation grossly intact. Reflexes are absent bilateral knees and ankles. Strength bilateral EHL +4/5. Results Lumbar MRI from 07/16/2017 IMPRESSION: 1. Acute / recent mild to moderate L1 vertebral compression fracture without significant retropulsion. 2. Multilevel bilateral foraminal stenosis with impingement of the exiting right L4 and left L5 nerve roots as detailed above. 3. Multilevel spinal canal stenosis most pronounced L4-5 where there is a broad -based disc bulge with severe spinal canal stenosis. Result Diagram: 07/23/17 0507 07/23/17 0507 Results 24 hrs Laboratory Tests Test 07/24/17 06:35 Lab Scanned Report REFERENCE LAB Medications Medications Current Medications Brimonidine Tartrate (Alphagan 0.2%) 1 drop Q8 BOTH EYES Last administered on 07/24/17 14:11; Admin Dose 1 DROP; Start 07/14/17 at 14:00 Cyanocobalamin (Vitamin B12) 1,000 mcg DAILY PO Last administered on 08:35; Admin Dose 1,000 MCG; Start 07/15/17 at 09:00 Febuxostat (Uloric) 80 mg DAILY PO Last administered on 07/24/17 08:35; Admin Dose 80 MG; Start 07/14/17 at 13:00 Latanoprost (Xalatan) 1 drop QHS BOTH EYES Last administered on 07/23/17 20: 34; Admin Dose 1 DROP; Start 07/14/17 at 21:00 Metoprolol Tartrate (Lopressor) 25 mg BID PO Last administered on 07/24/17 08 :36; Admin Dose 25 MG; Start 07/14/17 at 13:00 Lorazepam (Ativan) 0.25 mg BID PRN PO ANXIETY Last administered on 07/18/17 17:12; Admin Dose 0.25 MG; Start 07/14/17 at 13:00 Ondansetron HCl (Zofran Inj) 4 mg Q6H PRN IV NAUSEA AND/OR VOMITING Last administered on 07/18/17 13:05; Admin Dose 4 MG; Start 07/14/17 at 13:00 Acetaminophen/ Hydrocodone Bitart ([place] (5/325)) 1 tab Q6H PRN PO MODERATE PAIN LEVEL 4-6 Last administered on 07/24/17 14:09; Admin Dose 1 TAB; Start 07/14/17 at 13:00 Docusate Sodium (Colace) 100 mg Q12H PRN PO CONSTIPATION Last administered on 07/22/17 05:44; Admin Dose 100 MG; Start 07/14/17 at 13:00 Zolpidem Tartrate (Ambien) 5 mg QHS PRN PO SLEEP; Start 07/14/17 at 13:00 Memantine (Namenda) 5 mg BID PO Last administered on 07/24/17 08:36; Admin Dose 5 MG; Start 07/14/17 at 21:00 Aspirin (Halfprin) 81 mg DAILY PO Last administered on 07/24/17 08:35; Admin Dose 81 MG; Start 07/15/17 at 09:00 Neomycin/ Polymyxin/ Bacitracin (Neosporin Topical Oint) 1 applic DAILY TOP Last administered on 07/24/17 08:37; Admin Dose 1 APPLIC; Start 07/15/17 at 11:00 Epoetin Rosendo (Epogen (Esrd)) 10,000 units TuThSa@17 SC Last administered on 18:40; Admin Dose 10,000 UNITS; Start 07/17/17 at 17:00 Magnesium Hydroxide (Milk Of Mag) 30 ml BID PRN PO CONSTIPATION Last administered on 07/22/17 05:44; Admin Dose 30 ML; Start 07/17/17 at 10:30 Bisacodyl (Dulcolax Supp) 10 mg DAILY PRN [place] CONSTIPATION; Start 07/17/17 at 10:30 Acetaminophen (Tylenol Tab) 650 mg Q6H PRN PO PAIN AND OR ELEVATED TEMP Last administered on 07/24/17 12:49; Admin Dose 650 MG; Start 07/18/17 at 20:30 JODI REED Jul 24, 2017 17:58
[2017-07-24 19:40] VITALS: BP 103/56; PULSE 82; RESP 18
[2017-07-24] MEDS: LATANOPROST 0.005% 2.5 ML OPH BOTH EYES SCH (20:37)
[2017-07-25 02:18] VITALS: BP 100/56; RESP 19
[2017-07-25] MEDS: ACETAMINOPHEN 325 MG TAB PO PRN (04:24)
[2017-07-25 06:08] LABS: BASOPHILS % 0.3 % (0.0-2.0); EOSINOPHILS # 0.1 10^3/ul (0.0-0.5); EOSINOPHILS % 1.9 % (0.0-7.0); HEMATOCRIT 28.3 % (42.0-52.0); HEMOGLOBIN 9.2 g/dl (14.0-18.0); LYMPHOCYTES # 0.8 10^3/ul (0.8-2.9); LYMPHOCYTES % 25.1 % (15.0-51.0); MEAN CORPUSCULAR HEMOGLOBIN 36.1 pg (29.0-33.0); MEAN CORPUSCULAR HGB CONC 32.5 g/dl (32.0-37.0); MONOCYTE # 0.3 10^3/ul (0.3-0.9); MONOCYTES % 8.5 % (0.0-11.0); NEUTROPHILS % 63.3 % (39.0-77.0); PLATELET COUNT 103 10^3/UL (140-415); RED BLOOD COUNT 2.55 10^6/ul (4.70-6.10); RED CELL DISTRIBUTION WIDTH 20.4 % (11.5-14.5); WHITE BLOOD COUNT 3.2 10^3/ul (4.8-10.8)
[2017-07-25] MEDS: BRIMONIDINE 0.2% 5 ML BTL BOTH EYES SCH ×3 (06:10→22:00)
[2017-07-25 06:39] LABS: ALBUMIN 2.9 g/dl (3.3-4.9); ALBUMIN/GLOBULIN RATIO 0.69; BILIRUBIN,INDIRECT 0.7 mg/dl (0-1.1); BILIRUBIN,TOTAL 0.7 mg/dl (0.2-1.3); CREATININE 0.86 mg/dl (0.61-1.24); MAGNESIUM 2.2 mg/dl (1.7-2.5); POTASSIUM 4.3 mmol/L (3.5-5.1); TOTAL PROTEIN 7.1 g/dl (6.1-8.1)
--- NOTE | 2017-07-25 07:21 | CONS ---
Date/Time of Note Date/Time of Note DATE: 07/25/17 TIME: 07:14 Consultation Date/Type/Reason Admit Date/Time Jul 14, 2017 at 10:41 Date of Consultation: Jul 24, 2017 Type of Consultation: Orthopedic Surgery Reason for Consultation Low Back Pain/ Fracture L1 Referring Provider: CHERRY GRIMM MD Hx of Present Illness This is an 87-year-old male who apparently fell on July 14 injuring his low back. He was admitted to [facility] on 14 July, and subsequent imaging studies revealed a fracture of L1. I have been asked to evaluate and treat his L1 compression fracture. Physical examination reveals an elderly white male in no acute distress. He is resting comfortably in bed. Neurovascular structures are intact distally. Neurologic examination reveals mild weakness of the EHLs bilaterally (+4/5) and a normal sensory examination. Flexes are absent below the waist. Straight leg raising is -90 bilaterally. Palpation of the lumbar spine and paraspinal musculature musculature reveals some tenderness over the L1 spinous process. Gait was not assessed due to his recent fracture. X-rays of the lumbar spine and an MRI of lumbar spine obtained during this admission revealed a moderate compression fracture of L1, and a moderately severe spinal stenosis at L4-5. A CORONA brace (cruciate anterior spinal hyperextension) has been ordered, and should be worn whenever the patient is out of bed. This fracture should heal uneventfully after 3 months, and monthly follow-up x-rays are recommended until fracture healing is complete. Although he has significant spinal stenosis at L4-5, no orthopedic intervention is planned at this time. Thank you for the opportunity of participating in the care of this pleasant gentleman. I would be happy to follow him as an outpatient upon request. If there are any questions regarding this consultation do not say to contact me at any time. Constitutional: poor po Eyes: no complaints ENT: no complaints Respiratory: cough, no complaints Cardiovascular: no complaints Gastrointestinal: no complaints Genitourinary: no complaints Musculoskeletal: bone/joint pain Skin: no complaints Neurologic: no complaints Psychological: no complaints Past Medical History Medical History: high cholesterol, hypertension, other (gout, malnutrition, neuropathy) Past Surgical History Past Surgical Hx: other (orchiectomy) Social History Alcohol Use: none Smoking Status: Former smoker Drug Use: none Exam/Review of Systems Vital Signs Vitals Vital Signs Date Time Temp Pulse Resp B/P Pulse Ox O2 Delivery O2 Flow Rate FiO2 07/25/17 02:18 98.5 95 19 100/56 98 07/24/17 20:10 Nasal Cannula 2.0 Intake and Output 07/24/17 07/24/17 07/25/17 15:00 23:00 07:00 Intake Total 200 ml Balance 200 ml Results Result Diagram: 07/25/17 0439 07/25/17 0442 Results 24 hrs Laboratory Tests Test 07/25/17 04:39 07/25/17 04:42 White Blood Count 3.2 L Red Blood Count 2.55 L Hemoglobin 9.2 L Hematocrit 28.3 L Mean Corpuscular Volume 111.0 H Mean Corpuscular Hemoglobin 36.1 H Mean Corpuscular Hemoglobin Concent 32.5 Red Cell Distribution Width 20.4 H Platelet Count 103 #L Mean Platelet Volume 13.0 H Neutrophils % 63.3 Lymphocytes % 25.1 Monocytes % 8.5 Eosinophils % 1.9 Basophils % 0.3 Nucleated Red Blood Cells % 0.0 Neutrophils # 2.0 Lymphocytes # 0.8 Monocytes # 0.3 Eosinophils # 0.1 Basophils # 0.0 Nucleated Red Blood Cells # 0.0 Sodium Level 138 Potassium Level 4.3 Chloride Level 108 Carbon Dioxide Level 20 L Anion Gap 14 Blood Urea Nitrogen 32 H Creatinine 0.86 Glucose Level 100 Calcium Level 8.0 L Phosphorus Level 3.0 Magnesium Level 2.2 Total Bilirubin 0.7 Direct Bilirubin 0.00 Indirect Bilirubin 0.7 Aspartate Amino Transf (AST/SGOT) 145 H Alanine Aminotransferase (ALT/SGPT) 158 H Alkaline Phosphatase 209 H Total Protein 7.1 Albumin 2.9 L Globulin 4.20 H Albumin/Globulin Ratio 0.69 Medications Medications Current Medications Brimonidine Tartrate (Alphagan 0.2%) 1 drop Q8 BOTH EYES Last administered on 07/25/17 06:10; Admin Dose 1 DROP; Start 07/14/17 at 14:00 Cyanocobalamin (Vitamin B12) 1,000 mcg DAILY PO Last administered on 08:35; Admin Dose 1,000 MCG; Start 07/15/17 at 09:00 Febuxostat (Uloric) 80 mg DAILY PO Last administered on 07/24/17 08:35; Admin Dose 80 MG; Start 07/14/17 at 13:00 Latanoprost (Xalatan) 1 drop QHS BOTH EYES Last administered on 07/24/17 20: 37; Admin Dose 1 DROP; Start 07/14/17 at 21:00 Metoprolol Tartrate (Lopressor) 25 mg BID PO Last administered on 07/24/17 08 :36; Admin Dose 25 MG; Start 07/14/17 at 13:00 Lorazepam (Ativan) 0.25 mg BID PRN PO ANXIETY Last administered on 07/18/17 17:12; Admin Dose 0.25 MG; Start 07/14/17 at 13:00 Ondansetron HCl (Zofran Inj) 4 mg Q6H PRN IV NAUSEA AND/OR VOMITING Last administered on 07/18/17 13:05; Admin Dose 4 MG; Start 07/14/17 at 13:00 Acetaminophen/ Hydrocodone Bitart ([place] (5/325)) 1 tab Q6H PRN PO MODERATE PAIN LEVEL 4-6 Last administered on 07/24/17 23:19; Admin Dose 1 TAB; Start 07/14/17 at 13:00 Docusate Sodium (Colace) 100 mg Q12H PRN PO CONSTIPATION Last administered on 07/22/17 05:44; Admin Dose 100 MG; Start 07/14/17 at 13:00 Zolpidem Tartrate (Ambien) 5 mg QHS PRN PO SLEEP; Start 07/14/17 at 13:00 Memantine (Namenda) 5 mg BID PO Last administered on 07/24/17 20:13; Admin Dose 5 MG; Start 07/14/17 at 21:00 Aspirin (Halfprin) 81 mg DAILY PO Last administered on 07/24/17 08:35; Admin Dose 81 MG; Start 07/15/17 at 09:00 Neomycin/ Polymyxin/ Bacitracin (Neosporin Topical Oint) 1 applic DAILY TOP Last administered on 07/24/17 08:37; Admin Dose 1 APPLIC; Start 07/15/17 at 11:00 Epoetin Rosendo (Epogen (Esrd)) 10,000 units TuThSa@17 SC Last administered on 17:33; Admin Dose 10,000 UNITS; Start 07/17/17 at 17:00 Magnesium Hydroxide (Milk Of Mag) 30 ml BID PRN PO CONSTIPATION Last administered on 07/22/17 05:44; Admin Dose 30 ML; Start 07/17/17 at 10:30 Bisacodyl (Dulcolax Supp) 10 mg DAILY PRN [place] CONSTIPATION; Start 07/17/17 at 10:30 Acetaminophen (Tylenol Tab) 650 mg Q6H PRN PO PAIN AND OR ELEVATED TEMP Last administered on 07/25/17 04:24; Admin Dose 650 MG; Start 07/18/17 at 20:30 DORITA GALDAMEZ MD Jul 25, 2017 07:21
[2017-07-25 08:30] VITALS: BP 97/52; RESP 18
[2017-07-25] MEDS: METOPROLOL 25 MG TAB PO SCH ×2 (09:00→21:00)
--- NOTE | 2017-07-25 09:00 | PN ---
Date/Time of Note Date/Time of Note DATE: 07/25/17 TIME: 08:55 Assessment/Plan VTE Prophylaxis VTE Prophylaxis Intervention: other (aspirin) Lines/Catheters IV Catheter Type (from [facility]): Saline Lock Assessment/Plan Chief Complaint/Hosp Course 87 yo man known to me as an outpatient. 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 This year he had pancytopenia with normal B12 and folate, borderline iron and a low EPO assay. Atrial of iron was unsuccessful and he is now getting Procrit trial with slight rise of 1 gm/dl noted over a six week period. 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 Today he was admitted via the ER after falling at home. Note that Dr. Moreno had been reducing the amount of antihypertensives that he took. Pt has also been encouraged to eat better but family says that he eats poorly and is extremely inactive. The fall at home was likely due to slipping and pt denies LOC, chest pain or palpitations. Troponin elevation noted and conservative medical treatment is advised. This is very reasonable given age and poor performance status. Hgb is still low at ~ 7 1/2. Problems: Assessment/Plan CBC is slowly improving. Continue epoetin. Ortho plans for brace noted. Subjective 24 Hr Interval Summary Free Text/Dictation Pt remains weak and tired Exam/Review of Systems Vital Signs Vitals Vital Signs Date Time Temp Pulse Resp B/P Pulse Ox O2 Delivery O2 Flow Rate FiO2 07/25/17 08:30 97.2 83 18 97/52 96 07/24/17 20:10 Nasal Cannula 2.0 Intake and Output 07/24/17 07/24/17 07/25/17 15:00 23:00 07:00 Intake Total 200 ml Balance 200 ml Exam Constitutional: other (lethargic but can be awaken) Head: normocephalic Eyes: other (pallor) Neck: supple Respiratory: clear to auscultation Gastrointestinal: soft Results Result Diagram: 07/25/17 0439 07/25/17 0442 Results 24 hrs Laboratory Tests Test 07/25/17 04:39 07/25/17 04:42 White Blood Count 3.2 L Red Blood Count 2.55 L Hemoglobin 9.2 L Hematocrit 28.3 L Mean Corpuscular Volume 111.0 H Mean Corpuscular Hemoglobin 36.1 H Mean Corpuscular Hemoglobin Concent 32.5 Red Cell Distribution Width 20.4 H Platelet Count 103 #L Mean Platelet Volume 13.0 H Neutrophils % 63.3 Lymphocytes % 25.1 Monocytes % 8.5 Eosinophils % 1.9 Basophils % 0.3 Nucleated Red Blood Cells % 0.0 Neutrophils # 2.0 Lymphocytes # 0.8 Monocytes # 0.3 Eosinophils # 0.1 Basophils # 0.0 Nucleated Red Blood Cells # 0.0 Sodium Level 138 Potassium Level 4.3 Chloride Level 108 Carbon Dioxide Level 20 L Anion Gap 14 Blood Urea Nitrogen 32 H Creatinine 0.86 Glucose Level 100 Calcium Level 8.0 L Phosphorus Level 3.0 Magnesium Level 2.2 Total Bilirubin 0.7 Direct Bilirubin 0.00 Indirect Bilirubin 0.7 Aspartate Amino Transf (AST/SGOT) 145 H Alanine Aminotransferase (ALT/SGPT) 158 H Alkaline Phosphatase 209 H Total Protein 7.1 Albumin 2.9 L Globulin 4.20 H Albumin/Globulin Ratio 0.69 Medications Medications Current Medications Brimonidine Tartrate (Alphagan 0.2%) 1 drop Q8 BOTH EYES Last administered on 07/25/17 06:10; Admin Dose 1 DROP; Start 07/14/17 at 14:00 Cyanocobalamin (Vitamin B12) 1,000 mcg DAILY PO Last administered on 08:35; Admin Dose 1,000 MCG; Start 07/15/17 at 09:00 Febuxostat (Uloric) 80 mg DAILY PO Last administered on 07/24/17 08:35; Admin Dose 80 MG; Start 07/14/17 at 13:00 Latanoprost (Xalatan) 1 drop QHS BOTH EYES Last administered on 07/24/17 20: 37; Admin Dose 1 DROP; Start 07/14/17 at 21:00 Metoprolol Tartrate (Lopressor) 25 mg BID PO Last administered on 07/24/17 08 :36; Admin Dose 25 MG; Start 07/14/17 at 13:00 Lorazepam (Ativan) 0.25 mg BID PRN PO ANXIETY Last administered on 07/18/17 17:12; Admin Dose 0.25 MG; Start 07/14/17 at 13:00 Ondansetron HCl (Zofran Inj) 4 mg Q6H PRN IV NAUSEA AND/OR VOMITING Last administered on 07/18/17 13:05; Admin Dose 4 MG; Start 07/14/17 at 13:00 Acetaminophen/ Hydrocodone Bitart ([place] (5/325)) 1 tab Q6H PRN PO MODERATE PAIN LEVEL 4-6 Last administered on 07/24/17 23:19; Admin Dose 1 TAB; Start 07/14/17 at 13:00 Docusate Sodium (Colace) 100 mg Q12H PRN PO CONSTIPATION Last administered on 07/22/17 05:44; Admin Dose 100 MG; Start 07/14/17 at 13:00 Zolpidem Tartrate (Ambien) 5 mg QHS PRN PO SLEEP; Start 07/14/17 at 13:00 Memantine (Namenda) 5 mg BID PO Last administered on 07/24/17 20:13; Admin Dose 5 MG; Start 07/14/17 at 21:00 Aspirin (Halfprin) 81 mg DAILY PO Last administered on 07/24/17 08:35; Admin Dose 81 MG; Start 07/15/17 at 09:00 Neomycin/ Polymyxin/ Bacitracin (Neosporin Topical Oint) 1 applic DAILY TOP Last administered on 07/24/17 08:37; Admin Dose 1 APPLIC; Start 07/15/17 at 11:00 Epoetin Rosendo (Epogen (Esrd)) 10,000 units TuThSa@17 SC Last administered on 17:33; Admin Dose 10,000 UNITS; Start 07/17/17 at 17:00 Magnesium Hydroxide (Milk Of Mag) 30 ml BID PRN PO CONSTIPATION Last administered on 07/22/17 05:44; Admin Dose 30 ML; Start 07/17/17 at 10:30 Bisacodyl (Dulcolax Supp) 10 mg DAILY PRN [place] CONSTIPATION; Start 07/17/17 at 10:30 Acetaminophen (Tylenol Tab) 650 mg Q6H PRN PO PAIN AND OR ELEVATED TEMP Last administered on 07/25/17 04:24; Admin Dose 650 MG; Start 07/18/17 at 20:30 CHERRY JANE MD Jul 25, 2017 09:00
[2017-07-25] MEDS: ASPIRIN (EC) 81 MG TAB PO SCH (09:20)
[2017-07-25] MEDS: FEBUXOSTAT 40 MG TABLET PO SCH (09:21)
[2017-07-25] MEDS: MEMANTINE 5 MG TAB PO SCH ×2 (09:21→21:00)
[2017-07-25] MEDS: CYANOCOBALAMIN 500 MCG TAB PO SCH (09:21)
[2017-07-25] MEDS: NEOMYC/POLYMYX/BACIT 30 GM OINT TOP SCH (09:22)
--- NOTE | 2017-07-25 12:16 | CONS ---
Date/Time of Note Date/Time of Note DATE: 07/25/17 TIME: 12:15 Assessment/Plan Assessment/Plan Chief Complaint/Hosp Course dictated [id number] fluid overload with pulm edema. decrease iv fluid, administewr lasix, f/u cxr tomorrow. Problems: Additional Assessment/Plan Assessment and recommendations; 1. 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 2. Patient developed noncardiogenic pulmonary edema with marked interval improvement both clinically and radiologically. Continue current supportive care. Consultation Date/Type/Reason Admit Date/Time Jul 14, 2017 at 10:41 Initial Consult Date 07/19/17 Type of Consultation: Pulmonary Referring Provider: CHERRY GRIMM MD 24 HR Interval Summary Free Text/Dictation Patient's condition is stable. Denies any shortness of breath. General exam; elderly male, awake and alert. Currently in no distress. Exam/Review of Systems Vital Signs Vitals Vital Signs Date Time Temp Pulse Resp B/P Pulse Ox O2 Delivery O2 Flow Rate FiO2 07/25/17 08:30 97.2 83 18 97/52 96 07/24/17 20:10 Nasal Cannula 2.0 Intake and Output 07/24/17 07/24/17 07/25/17 15:00 23:00 07:00 Intake Total 200 ml Balance 200 ml Exam HEENT exam; supple neck, no JVD. No lymphadenopathy. Midline trachea. No thyromegaly. Patient has multiple carious teeth. Chest exam; clear to auscultation. S1-S2 audible, no murmurs. Abdomen exam; soft, nontender. No organomegaly. Bowel sounds audible. Extremity exam; no peripheral edema. CABLE DRILLER exam; no focal deficit. Results Result Diagram: 07/25/17 0439 07/25/17 0442 Results 24 hrs Laboratory Tests Test 07/25/17 04:39 07/25/17 04:42 White Blood Count 3.2 L Red Blood Count 2.55 L Hemoglobin 9.2 L Hematocrit 28.3 L Mean Corpuscular Volume 111.0 H Mean Corpuscular Hemoglobin 36.1 H Mean Corpuscular Hemoglobin Concent 32.5 Red Cell Distribution Width 20.4 H Platelet Count 103 #L Mean Platelet Volume 13.0 H Neutrophils % 63.3 Lymphocytes % 25.1 Monocytes % 8.5 Eosinophils % 1.9 Basophils % 0.3 Nucleated Red Blood Cells % 0.0 Neutrophils # 2.0 Lymphocytes # 0.8 Monocytes # 0.3 Eosinophils # 0.1 Basophils # 0.0 Nucleated Red Blood Cells # 0.0 Sodium Level 138 Potassium Level 4.3 Chloride Level 108 Carbon Dioxide Level 20 L Anion Gap 14 Blood Urea Nitrogen 32 H Creatinine 0.86 Glucose Level 100 Calcium Level 8.0 L Phosphorus Level 3.0 Magnesium Level 2.2 Total Bilirubin 0.7 Direct Bilirubin 0.00 Indirect Bilirubin 0.7 Aspartate Amino Transf (AST/SGOT) 145 H Alanine Aminotransferase (ALT/SGPT) 158 H Alkaline Phosphatase 209 H Total Protein 7.1 Albumin 2.9 L Globulin 4.20 H Albumin/Globulin Ratio 0.69 Medications Medications Current Medications Brimonidine Tartrate (Alphagan 0.2%) 1 drop Q8 BOTH EYES Last administered on 07/25/17 06:10; Admin Dose 1 DROP; Start 07/14/17 at 14:00 Cyanocobalamin (Vitamin B12) 1,000 mcg DAILY PO Last administered on 09:21; Admin Dose 1,000 MCG; Start 07/15/17 at 09:00 Febuxostat (Uloric) 80 mg DAILY PO Last administered on 07/25/17 09:21; Admin Dose 80 MG; Start 07/14/17 at 13:00 Latanoprost (Xalatan) 1 drop QHS BOTH EYES Last administered on 07/24/17 20: 37; Admin Dose 1 DROP; Start 07/14/17 at 21:00 Metoprolol Tartrate (Lopressor) 25 mg BID PO Last administered on 07/24/17 08 :36; Admin Dose 25 MG; Start 07/14/17 at 13:00 Lorazepam (Ativan) 0.25 mg BID PRN PO ANXIETY Last administered on 07/18/17 17:12; Admin Dose 0.25 MG; Start 07/14/17 at 13:00 Ondansetron HCl (Zofran Inj) 4 mg Q6H PRN IV NAUSEA AND/OR VOMITING Last administered on 07/18/17 13:05; Admin Dose 4 MG; Start 07/14/17 at 13:00 Acetaminophen/ Hydrocodone Bitart ([place] (5/325)) 1 tab Q6H PRN PO MODERATE PAIN LEVEL 4-6 Last administered on 07/24/17 23:19; Admin Dose 1 TAB; Start 07/14/17 at 13:00 Docusate Sodium (Colace) 100 mg Q12H PRN PO CONSTIPATION Last administered on 07/22/17 05:44; Admin Dose 100 MG; Start 07/14/17 at 13:00 Zolpidem Tartrate (Ambien) 5 mg QHS PRN PO SLEEP; Start 07/14/17 at 13:00 Memantine (Namenda) 5 mg BID PO Last administered on 07/25/17 09:21; Admin Dose 5 MG; Start 07/14/17 at 21:00 Aspirin (Halfprin) 81 mg DAILY PO Last administered on 07/25/17 09:20; Admin Dose 81 MG; Start 07/15/17 at 09:00 Neomycin/ Polymyxin/ Bacitracin (Neosporin Topical Oint) 1 applic DAILY TOP Last administered on 07/25/17 09:22; Admin Dose 1 APPLIC; Start 07/15/17 at 11:00 Epoetin Rosendo (Epogen (Esrd)) 10,000 units TuThSa@17 SC Last administered on 17:33; Admin Dose 10,000 UNITS; Start 07/17/17 at 17:00 Magnesium Hydroxide (Milk Of Mag) 30 ml BID PRN PO CONSTIPATION Last administered on 07/22/17 05:44; Admin Dose 30 ML; Start 07/17/17 at 10:30 Bisacodyl (Dulcolax Supp) 10 mg DAILY PRN [place] CONSTIPATION; Start 07/17/17 at 10:30 Acetaminophen (Tylenol Tab) 650 mg Q6H PRN PO PAIN AND OR ELEVATED TEMP Last administered on 07/25/17 04:24; Admin Dose 650 MG; Start 07/18/17 at 20:30 REECE VELOZ Jul 25, 2017 12:16
[2017-07-25 14:00] VITALS: BP 105/52; RESP 18
[2017-07-25] MEDS: HYDROCODONE/APAP (5/325) TAB PO PRN ×2 (15:45→23:00)
--- NOTE | 2017-07-25 17:18 | PN ---
Date/Time of Note Date/Time of Note DATE: 07/25/17 TIME: 16:59 Assessment/Plan VTE Prophylaxis VTE Prophylaxis Intervention: SCD's Lines/Catheters IV C[facility]ter Type (from [facility]): Saline Lock Reason Cath still needed: urinary retention Assessment/Plan Chief Complaint/Hosp Course 1. He is awake and alert this morning , his blood pressure is higher and he is requiring less oxygen. The last chest x-ray done showed improved aeration with decreased bilateral infiltrates. 2. Pancytopenia . Hematology w/u is in progress , he has gotten some blood transfusions. He had a bone marrow aspirate and biopsy 7 days ago . The final results are pending. The preliminary results of the bone marrow aspirate and biopsy show a hypocellular bone marrow. Possible MDS; however, pathology is waiting for some molecular studies. 3. hypertension , BP is lower , he is off BP meds . 4. dilated ventricles on CT scan of the brain, r/o Normal pressure hydrocephalus . Neuro does not think patient has a normal pressure hydrocephalus . 5. lumbar spine fractures , 1 of the lumbar spine fractures is acute. He also has some lumbar disc disease with stenosis. He is not complaining of pain. 6. He has a urinary tract infection . treated . 7. He is not able to go to acute rehab . I discussed this with the family and they want to consider hospice . I will order a hospice evaluation with [facility] . Problems: Subjective 24 Hr Interval Summary Free Text/Dictation He is sleeping in bed . He continues to be weak and not able to participate in PT . Constitutional: no complaints, poor po Eyes: no complaints ENT: no complaints Cardiovascular: no complaints Gastrointestinal: no complaints Genitourinary: no complaints Musculoskeletal: bone/joint pain Neurologic: other Exam/Review of Systems Vital Signs Vitals Vital Signs Date Time Temp Pulse Resp B/P Pulse Ox O2 Delivery O2 Flow Rate FiO2 07/25/17 14:00 98.1 92 18 105/52 98 07/25/17 08:00 Nasal Cannula 2.0 Intake and Output 07/24/17 07/24/17 07/25/17 15:00 23:00 07:00 Intake Total 200 ml Balance 200 ml Exam Constitutional: alert, frail, oriented Neck: supple Respiratory: clear to auscultation Cardiovascular: regular rate and rhythm Gastrointestinal: soft Results Result Diagram: 07/25/17 0439 07/25/17 0442 Results 24 hrs Laboratory Tests Test 07/25/17 04:39 07/25/17 04:42 White Blood Count 3.2 L Red Blood Count 2.55 L Hemoglobin 9.2 L Hematocrit 28.3 L Mean Corpuscular Volume 111.0 H Mean Corpuscular Hemoglobin 36.1 H Mean Corpuscular Hemoglobin Concent 32.5 Red Cell Distribution Width 20.4 H Platelet Count 103 #L Mean Platelet Volume 13.0 H Neutrophils % 63.3 Lymphocytes % 25.1 Monocytes % 8.5 Eosinophils % 1.9 Basophils % 0.3 Nucleated Red Blood Cells % 0.0 Neutrophils # 2.0 Lymphocytes # 0.8 Monocytes # 0.3 Eosinophils # 0.1 Basophils # 0.0 Nucleated Red Blood Cells # 0.0 Sodium Level 138 Potassium Level 4.3 Chloride Level 108 Carbon Dioxide Level 20 L Anion Gap 14 Blood Urea Nitrogen 32 H Creatinine 0.86 Glucose Level 100 Calcium Level 8.0 L Phosphorus Level 3.0 Magnesium Level 2.2 Total Bilirubin 0.7 Direct Bilirubin 0.00 Indirect Bilirubin 0.7 Aspartate Amino Transf (AST/SGOT) 145 H Alanine Aminotransferase (ALT/SGPT) 158 H Alkaline Phosphatase 209 H Total Protein 7.1 Albumin 2.9 L Globulin 4.20 H Albumin/Globulin Ratio 0.69 Medications Medications Current Medications Brimonidine Tartrate (Alphagan 0.2%) 1 drop Q8 BOTH EYES Last administered on 07/25/17 13:37; Admin Dose 1 DROP; Start 07/14/17 at 14:00 Cyanocobalamin (Vitamin B12) 1,000 mcg DAILY PO Last administered on 09:21; Admin Dose 1,000 MCG; Start 07/15/17 at 09:00 Febuxostat (Uloric) 80 mg DAILY PO Last administered on 07/25/17 09:21; Admin Dose 80 MG; Start 07/14/17 at 13:00 Latanoprost (Xalatan) 1 drop QHS BOTH EYES Last administered on 07/24/17 20: 37; Admin Dose 1 DROP; Start 07/14/17 at 21:00 Metoprolol Tartrate (Lopressor) 25 mg BID PO Last administered on 07/24/17 08 :36; Admin Dose 25 MG; Start 07/14/17 at 13:00 Lorazepam (Ativan) 0.25 mg BID PRN PO ANXIETY Last administered on 07/18/17 17:12; Admin Dose 0.25 MG; Start 07/14/17 at 13:00 Ondansetron HCl (Zofran Inj) 4 mg Q6H PRN IV NAUSEA AND/OR VOMITING Last administered on 07/18/17 13:05; Admin Dose 4 MG; Start 07/14/17 at 13:00 Acetaminophen/ Hydrocodone Bitart ([place] (5/325)) 1 tab Q6H PRN PO MODERATE PAIN LEVEL 4-6 Last administered on 07/25/17 15:45; Admin Dose 1 TAB; Start 07/14/17 at 13:00 Docusate Sodium (Colace) 100 mg Q12H PRN PO CONSTIPATION Last administered on 07/22/17 05:44; Admin Dose 100 MG; Start 07/14/17 at 13:00 Zolpidem Tartrate (Ambien) 5 mg QHS PRN PO SLEEP; Start 07/14/17 at 13:00 Memantine (Namenda) 5 mg BID PO Last administered on 07/25/17 09:21; Admin Dose 5 MG; Start 07/14/17 at 21:00 Aspirin (Halfprin) 81 mg DAILY PO Last administered on 07/25/17 09:20; Admin Dose 81 MG; Start 07/15/17 at 09:00 Neomycin/ Polymyxin/ Bacitracin (Neosporin Topical Oint) 1 applic DAILY TOP Last administered on 07/25/17 09:22; Admin Dose 1 APPLIC; Start 07/15/17 at 11:00 Epoetin Rosendo (Epogen (Esrd)) 10,000 units TuThSa@17 SC Last administered on 17:33; Admin Dose 10,000 UNITS; Start 07/17/17 at 17:00 Magnesium Hydroxide (Milk Of Mag) 30 ml BID PRN PO CONSTIPATION Last administered on 07/22/17 05:44; Admin Dose 30 ML; Start 07/17/17 at 10:30 Bisacodyl (Dulcolax Supp) 10 mg DAILY PRN [place] CONSTIPATION; Start 07/17/17 at 10:30 Acetaminophen (Tylenol Tab) 650 mg Q6H PRN PO PAIN AND OR ELEVATED TEMP Last administered on 07/25/17 04:24; Admin Dose 650 MG; Start 07/18/17 at 20:30 YANDY MCDERMOTT MD Jul 25, 2017 17:18
[2017-07-25 20:00] VITALS: BP 117/61; RESP 18
[2017-07-25] MEDS: LATANOPROST 0.005% 2.5 ML OPH BOTH EYES SCH (21:00)
[2017-07-25] MEDS: HYDROmorphONE 0.5 MG/0.5 ML SYG IV PRN (23:56)
[2017-07-26 02:46] VITALS: BP 110/59; RESP 19
[2017-07-26] MEDS: HYDROmorphONE 0.5 MG/0.5 ML SYG IV PRN ×3 (04:43→11:02)
[2017-07-26] MEDS: BRIMONIDINE 0.2% 5 ML BTL BOTH EYES SCH ×4 (05:53→21:25)
[2017-07-26 08:01] VITALS: BP 109/60; RESP 20
[2017-07-26] MEDS: METOPROLOL 25 MG TAB PO SCH ×2 (08:02→21:25)
[2017-07-26] MEDS: FEBUXOSTAT 40 MG TABLET PO SCH ×2 (08:24→08:31)
[2017-07-26] MEDS: ASPIRIN (EC) 81 MG TAB PO SCH ×2 (08:24→08:31)
[2017-07-26] MEDS: CYANOCOBALAMIN 500 MCG TAB PO SCH (08:24)
[2017-07-26] MEDS: MEMANTINE 5 MG TAB PO SCH ×3 (08:24→21:25)
[2017-07-26] MEDS: NEOMYC/POLYMYX/BACIT 30 GM OINT TOP SCH ×2 (08:25→08:31)
[2017-07-26] MEDS: HYDROCODONE/APAP (5/325) TAB PO PRN (13:01)
--- NOTE | 2017-07-26 14:48 | PN ---
Date/Time of Note Date/Time of Note DATE: 07/26/17 TIME: 14:33 Assessment/Plan VTE Prophylaxis VTE Prophylaxis Intervention: SCD's Lines/Catheters IV [facility] Saline Lock Assessment/Plan Chief Complaint/Hosp Course 87 y/o male with pmh gout, HLD, HTN who was admitted after a fall at home on resulting in L1 compression fracture. This is being managed conservatively. Patient has had pancytopenia, s/p BM bx, some studies pending, presumed to be 2/ 2 MDS. Hospital course c/b volume overload, now more hypovolemic after diuresis and poor po intake. Patient is severely debilitated, being considered for hospice. Problems: Assessment/Plan A/P: #HTN-improved -continue MTP only at this time, HR may become elevated off this but can consider stopping #pancytopenia-pending some other studies, presumed MDS -appreciate heme recs -continue epo per heme #abnl LFT-unclear etiology. consider sequelae of congestive hepatopathy.patient clinically stable at this time with benign abd exam -will trend right now -no utility to workup at this time as patient being transitioned to comfort care given overall poor prognosis #gout -febuxostat #debility -too deconditioned for rehab -being considered for hospice #goals of care-patient with overall poor prognosis. Not taking in PO. Would try to avoid IV hydration given recent volume overload. will try to encourage PO. Patient unlikely to improve much from current clinical status given that he is not a rehab candidate and his clinical status will likely continue to deteriorate. This quality of life would likely be unacceptable to patient. Will avoid excessive workup, blood draws, procedures at this time but will get labs in am to better understand patients current clinical picture. Family amenable to hospice. Patient being considered. Subjective 24 Hr Interval Summary Free Text/Dictation Patient was in pain last night despite po norco, I ordered dilaudid 0.5mg IVP q3 hours, has had two doses since. Effective in controlling his pain. He has been agitated with nursing. Not eating. Refusing meds, including pain meds. When I saw patient he was resting comfortably. Patient was cooperative when I examined him. Denied active pain, denied hunger. Promised to try to eat dinner. Patient oriented to person, place, situation, not time or date. Denies fevers, chills, nausea, vomiting, diarrhea, constipation, chest pain, sob, cough, dysuria, abdominal pain. Exam/Review of Systems Vital Signs Vitals Vital Signs Date Time Temp Pulse Resp B/P Pulse Ox O2 Delivery O2 Flow Rate FiO2 07/26/17 08:01 97.7 98 20 109/60 95 07/26/17 08:00 Nasal Cannula 2.0 Intake and Output 07/25/17 07/25/17 07/26/17 15:00 23:00 07:00 Intake Total 680 ml 200 ml Balance 680 ml 200 ml Exam GEN-NAD, alert to person, place, situation not date or time. Appears cachectic HEENT- dry mucus membranes, no scleral icterus. Atraumatic, normocephalic Pulm-CTAB on anterior exam CV-rrr, nml s1/s2, no m/r/g appreciated abd-soft, nt/nd, +BS ext-no c/c/e Constitutional: alert, oriented, well developed Psych: nl mood/affect, no complaints Head: atraumatic, normocephalic Eyes: EOMI, PERRL, nl conjunctiva, nl lids, nl sclera ENMT: nl external ears & nose, nl lips & teeth, nl nasal mucosa & septum Neck: non-tender, supple Respiratory: clear to auscultation, normal air movement Cardiovascular: nl pulses, regular rate and rhythm Gastrointestinal: nl liver, spleen, non-tender, soft Musculoskeletal: nl extremities to inspection, nl gait and stance Extremities: normal pulses Neurological: MOTHER REPAIRER II-XII intact, nl mental status, nl speech, nl strength Skin: nl turgor, No rash or lesions Lymph: nl lymph nodes Results Result Diagram: 07/25/17 0439 07/25/17 0442 Medications Medications Current Medications Brimonidine Tartrate (Alphagan 0.2%) 1 drop Q8 BOTH EYES Last administered on 07/25/17 13:37; Admin Dose 1 DROP; Start 07/14/17 at 14:00 Cyanocobalamin (Vitamin B12) 1,000 mcg DAILY PO Last administered on 08:24; Admin Dose 1,000 MCG; Start 07/15/17 at 09:00 Febuxostat (Uloric) 80 mg DAILY PO Last administered on 07/25/17 09:21; Admin Dose 80 MG; Start 07/14/17 at 13:00 Latanoprost (Xalatan) 1 drop QHS BOTH EYES Last administered on 07/24/17 20: 37; Admin Dose 1 DROP; Start 07/14/17 at 21:00 Metoprolol Tartrate (Lopressor) 25 mg BID PO Last administered on 07/24/17 08 :36; Admin Dose 25 MG; Start 07/14/17 at 13:00 Lorazepam (Ativan) 0.25 mg BID PRN PO ANXIETY Last administered on 07/18/17 17:12; Admin Dose 0.25 MG; Start 07/14/17 at 13:00 Ondansetron HCl (Zofran Inj) 4 mg Q6H PRN IV NAUSEA AND/OR VOMITING Last administered on 07/18/17 13:05; Admin Dose 4 MG; Start 07/14/17 at 13:00 Acetaminophen/ Hydrocodone Bitart ([place] (5/325)) 1 tab Q6H PRN PO MODERATE PAIN LEVEL 4-6 Last administered on 07/26/17 13:01; Admin Dose 1 TAB; Start 07/14/17 at 13:00 Docusate Sodium (Colace) 100 mg Q12H PRN PO CONSTIPATION Last administered on 07/22/17 05:44; Admin Dose 100 MG; Start 07/14/17 at 13:00 Zolpidem Tartrate (Ambien) 5 mg QHS PRN PO SLEEP; Start 07/14/17 at 13:00 Memantine (Namenda) 5 mg BID PO Last administered on 07/25/17 09:21; Admin Dose 5 MG; Start 07/14/17 at 21:00 Aspirin (Halfprin) 81 mg DAILY PO Last administered on 07/25/17 09:20; Admin Dose 81 MG; Start 07/15/17 at 09:00 Neomycin/ Polymyxin/ Bacitracin (Neosporin Topical Oint) 1 applic DAILY TOP Last administered on 07/25/17 09:22; Admin Dose 1 APPLIC; Start 07/15/17 at 11:00 Epoetin Rosendo (Epogen (Esrd)) 10,000 units TuThSa@17 SC Last administered on 17:33; Admin Dose 10,000 UNITS; Start 07/17/17 at 17:00 Magnesium Hydroxide (Milk Of Mag) 30 ml BID PRN PO CONSTIPATION Last administered on 07/22/17 05:44; Admin Dose 30 ML; Start 07/17/17 at 10:30 Bisacodyl (Dulcolax Supp) 10 mg DAILY PRN [place] CONSTIPATION; Start 07/17/17 at 10:30 Acetaminophen (Tylenol Tab) 650 mg Q6H PRN PO PAIN AND OR ELEVATED TEMP Last administered on 07/25/17 04:24; Admin Dose 650 MG; Start 07/18/17 at 20:30 Hydromorphone HCl (Dilaudid) 0.5 mg Q3H PRN IV SEVERE PAIN LEVEL 7-10 Last administered on 07/26/17 11:02; Admin Dose 0.5 MG; Start 07/26/17 at 00:00 TURNER ODONNELL MD Jul 26, 2017 14:48
[2017-07-26 15:58] VITALS: BP 103/55; RESP 16
[2017-07-26] MEDS: EPOETIN 10000 UNITS/1 ML INJ (ESRD) SC SCH (16:24)
--- NOTE | 2017-07-26 16:24 | PN ---
Date/Time of Note Date/Time of Note DATE: 07/26/17 TIME: 16:19 Assessment/Plan VTE Prophylaxis VTE Prophylaxis Intervention: SCD's Lines/Catheters IV C[facility]ter Type (from [facility] Saline Lock Assessment/Plan Assessment/Plan 87 yo man known to me as an outpatient. 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 This year he had pancytopenia with normal B12 and folate, borderline iron and a low EPO assay. Atrial of iron was unsuccessful and he is now getting Procrit trial with slight rise of 1 gm/dl noted over a six week period. 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 Today he was admitted via the ER after falling at home. Note that Dr. Moreno had been reducing the amount of antihypertensives that he took. Pt has also been encouraged to eat better but family says that he eats poorly and is extremely inactive. The fall at home was likely due to slipping and pt denies LOC, chest pain or palpitations. >Thrombocytopenia Numerically improved. Continue to monitor >Anemia Suspect from primary bone marrow dysfunction Monitor CBC with prophylactic blood transfusion for hemoglobin less than 7 g/dL >CAD Patient noted to have elevation in troponin but in absence of symptoms. Continue to monitor clinical symptoms Continue medical management. Subjective 24 Hr Interval Summary Free Text/Dictation Patient somnolent but responsive. Exam/Review of Systems Vital Signs Vitals Vital Signs Date Time Temp Pulse Resp B/P Pulse Ox O2 Delivery O2 Flow Rate FiO2 07/26/17 15:58 97.8 87 16 103/55 97 07/26/17 08:00 Nasal Cannula 2.0 Intake and Output 07/25/17 07/25/17 07/26/17 15:00 23:00 07:00 Intake Total 680 ml 200 ml Balance 680 ml 200 ml Exam Constitutional: alert Head: atraumatic, normocephalic Eyes: EOMI, nl lids ENMT: nl lips & teeth, nl nasal mucosa & septum Neck: non-tender, supple Respiratory: clear to auscultation, normal air movement Cardiovascular: nl pulses, regular rate and rhythm Gastrointestinal: non-tender, soft Extremities: normal pulses Results Result Diagram: 07/25/17 0439 07/25/17 0442 Medications Medications Current Medications Brimonidine Tartrate (Alphagan 0.2%) 1 drop Q8 BOTH EYES Last administered on 07/25/17 13:37; Admin Dose 1 DROP; Start 07/14/17 at 14:00 Cyanocobalamin (Vitamin B12) 1,000 mcg DAILY PO Last administered on 08:24; Admin Dose 1,000 MCG; Start 07/15/17 at 09:00 Febuxostat (Uloric) 80 mg DAILY PO Last administered on 07/25/17 09:21; Admin Dose 80 MG; Start 07/14/17 at 13:00 Latanoprost (Xalatan) 1 drop QHS BOTH EYES Last administered on 07/24/17 20: 37; Admin Dose 1 DROP; Start 07/14/17 at 21:00 Metoprolol Tartrate (Lopressor) 25 mg BID PO Last administered on 07/24/17 08 :36; Admin Dose 25 MG; Start 07/14/17 at 13:00 Lorazepam (Ativan) 0.25 mg BID PRN PO ANXIETY Last administered on 07/18/17 17:12; Admin Dose 0.25 MG; Start 07/14/17 at 13:00 Ondansetron HCl (Zofran Inj) 4 mg Q6H PRN IV NAUSEA AND/OR VOMITING Last administered on 07/18/17 13:05; Admin Dose 4 MG; Start 07/14/17 at 13:00 Acetaminophen/ Hydrocodone Bitart ([place] (5/325)) 1 tab Q6H PRN PO MODERATE PAIN LEVEL 4-6 Last administered on 07/26/17 13:01; Admin Dose 1 TAB; Start 07/14/17 at 13:00 Docusate Sodium (Colace) 100 mg Q12H PRN PO CONSTIPATION Last administered on 07/22/17 05:44; Admin Dose 100 MG; Start 07/14/17 at 13:00 Zolpidem Tartrate (Ambien) 5 mg QHS PRN PO SLEEP; Start 07/14/17 at 13:00 Memantine (Namenda) 5 mg BID PO Last administered on 07/25/17 09:21; Admin Dose 5 MG; Start 07/14/17 at 21:00 Aspirin (Halfprin) 81 mg DAILY PO Last administered on 07/25/17 09:20; Admin Dose 81 MG; Start 07/15/17 at 09:00 Neomycin/ Polymyxin/ Bacitracin (Neosporin Topical Oint) 1 applic DAILY TOP Last administered on 07/25/17 09:22; Admin Dose 1 APPLIC; Start 07/15/17 at 11:00 Epoetin Rosendo (Epogen (Esrd)) 10,000 units TuThSa@17 SC Last administered on 17:33; Admin Dose 10,000 UNITS; Start 07/17/17 at 17:00 Magnesium Hydroxide (Milk Of Mag) 30 ml BID PRN PO CONSTIPATION Last administered on 07/22/17 05:44; Admin Dose 30 ML; Start 07/17/17 at 10:30 Bisacodyl (Dulcolax Supp) 10 mg DAILY PRN [place] CONSTIPATION; Start 07/17/17 at 10:30 Acetaminophen (Tylenol Tab) 650 mg Q6H PRN PO PAIN AND OR ELEVATED TEMP Last administered on 07/25/17 04:24; Admin Dose 650 MG; Start 07/18/17 at 20:30 Hydromorphone HCl (Dilaudid) 0.5 mg Q3H PRN IV SEVERE PAIN LEVEL 7-10 Last administered on 07/26/17 11:02; Admin Dose 0.5 MG; Start 07/26/17 at 00:00 ANITA ANTHONY MD Jul 26, 2017 16:24
--- NOTE | 2017-07-26 18:28 | CONS ---
Date/Time of Note Date/Time of Note DATE: 07/26/17 TIME: 18:27 Consult Date/Type/Reason Admit Date/Time Jul 14, 2017 at 10:41 Initial Consult Date 07/24/17 Type of Consultation: Pulmonary Ordering Provider: CHERRY GRIMM MD Subjective No SOB Objective Vital Signs Date Time Temp Pulse Resp B/P Pulse Ox O2 Delivery O2 Flow Rate FiO2 07/26/17 15:58 97.8 87 16 103/55 97 07/26/17 08:00 Nasal Cannula 2.0 Intake and Output 07/25/17 07/25/17 07/26/17 15:00 23:00 07:00 Intake Total 680 ml 200 ml Balance 680 ml 200 ml Exam HEENT: Neck supple; no JVD; no LAD CVS: RRR, S1 and S2 CHEST: Clear ABD: Soft, NT, + BS EXT: No c/c/e Results/Medications Result Diagram: 07/25/17 0439 07/25/17 0442 Medications Current Medications Brimonidine Tartrate (Alphagan 0.2%) 1 drop Q8 BOTH EYES Last administered on 07/25/17 13:37; Admin Dose 1 DROP; Start 07/14/17 at 14:00 Cyanocobalamin (Vitamin B12) 1,000 mcg DAILY PO Last administered on 08:24; Admin Dose 1,000 MCG; Start 07/15/17 at 09:00 Febuxostat (Uloric) 80 mg DAILY PO Last administered on 07/25/17 09:21; Admin Dose 80 MG; Start 07/14/17 at 13:00 Latanoprost (Xalatan) 1 drop QHS BOTH EYES Last administered on 07/24/17 20: 37; Admin Dose 1 DROP; Start 07/14/17 at 21:00 Metoprolol Tartrate (Lopressor) 25 mg BID PO Last administered on 07/24/17 08 :36; Admin Dose 25 MG; Start 07/14/17 at 13:00 Lorazepam (Ativan) 0.25 mg BID PRN PO ANXIETY Last administered on 07/18/17 17:12; Admin Dose 0.25 MG; Start 07/14/17 at 13:00 Ondansetron HCl (Zofran Inj) 4 mg Q6H PRN IV NAUSEA AND/OR VOMITING Last administered on 07/18/17 13:05; Admin Dose 4 MG; Start 07/14/17 at 13:00 Acetaminophen/ Hydrocodone Bitart ([place] (5/325)) 1 tab Q6H PRN PO MODERATE PAIN LEVEL 4-6 Last administered on 07/26/17 13:01; Admin Dose 1 TAB; Start 07/14/17 at 13:00 Docusate Sodium (Colace) 100 mg Q12H PRN PO CONSTIPATION Last administered on 07/22/17 05:44; Admin Dose 100 MG; Start 07/14/17 at 13:00 Zolpidem Tartrate (Ambien) 5 mg QHS PRN PO SLEEP; Start 07/14/17 at 13:00 Memantine (Namenda) 5 mg BID PO Last administered on 07/25/17 09:21; Admin Dose 5 MG; Start 07/14/17 at 21:00 Aspirin (Halfprin) 81 mg DAILY PO Last administered on 07/25/17 09:20; Admin Dose 81 MG; Start 07/15/17 at 09:00 Neomycin/ Polymyxin/ Bacitracin (Neosporin Topical Oint) 1 applic DAILY TOP Last administered on 07/25/17 09:22; Admin Dose 1 APPLIC; Start 07/15/17 at 11:00 Epoetin Rosendo (Epogen (Esrd)) 10,000 units TuThSa@17 SC Last administered on 16:24; Admin Dose 10,000 UNITS; Start 07/17/17 at 17:00 Magnesium Hydroxide (Milk Of Mag) 30 ml BID PRN PO CONSTIPATION Last administered on 07/22/17 05:44; Admin Dose 30 ML; Start 07/17/17 at 10:30 Bisacodyl (Dulcolax Supp) 10 mg DAILY PRN [place] CONSTIPATION; Start 07/17/17 at 10:30 Acetaminophen (Tylenol Tab) 650 mg Q6H PRN PO PAIN AND OR ELEVATED TEMP Last administered on 07/25/17 04:24; Admin Dose 650 MG; Start 07/18/17 at 20:30 Hydromorphone HCl (Dilaudid) 0.5 mg Q3H PRN IV SEVERE PAIN LEVEL 7-10 Last administered on 07/26/17 11:02; Admin Dose 0.5 MG; Start 07/26/17 at 00:00 Assessment/Plan Additional Assessment/Plan IMP: 1. Patient admitted with generalized weakness resulting multiple falls. 2. Patient developed shortness of breath due to noncardiogenic pulmonary edema with marked clinical and radiological improvement. Responded well to Lasix. 3. Myelodysplastic syndrome with pancytopenia. Status post bone marrow biopsy. 4. Improving hypoxemia. RECS: 1. Strict I/O's 2. Gentle diuresis prn DOLLY GRANDA MD Jul 26, 2017 18:27
[2017-07-26 20:45] VITALS: BP 118/62; PULSE 90; RESP 18
[2017-07-26] MEDS: LATANOPROST 0.005% 2.5 ML OPH BOTH EYES SCH (21:25)
[2017-07-27 02:03] VITALS: BP 100/55; PULSE 82; RESP 19
[2017-07-27] MEDS: BRIMONIDINE 0.2% 5 ML BTL BOTH EYES SCH ×3 (04:45→22:00)
[2017-07-27] MEDS: ACETAMINOPHEN 325 MG TAB PO PRN (04:45)
[2017-07-27 08:45] VITALS: BP 101/56; RESP 16
[2017-07-27] MEDS: NEOMYC/POLYMYX/BACIT 30 GM OINT TOP SCH (08:47)
[2017-07-27] MEDS: METOPROLOL 25 MG TAB PO SCH ×2 (08:47→21:00)
[2017-07-27] MEDS: FEBUXOSTAT 40 MG TABLET PO SCH (08:48)
[2017-07-27] MEDS: HYDROCODONE/APAP (5/325) TAB PO PRN ×2 (08:48→20:50)
[2017-07-27] MEDS: CYANOCOBALAMIN 500 MCG TAB PO SCH (08:48)
[2017-07-27] MEDS: ASPIRIN (EC) 81 MG TAB PO SCH (08:48)
[2017-07-27] MEDS: MEMANTINE 5 MG TAB PO SCH ×2 (08:48→20:50)
[2017-07-27 11:31] LABS: BASOPHILS % 0.3 % (0.0-2.0); EOSINOPHILS # 0.1 10^3/ul (0.0-0.5); EOSINOPHILS % 2.2 % (0.0-7.0); HEMOGLOBIN 8.2 g/dl (14.0-18.0); LYMPHOCYTES # 0.7 10^3/ul (0.8-2.9); LYMPHOCYTES % 20.6 % (15.0-51.0); MEAN CORPUSCULAR HGB CONC 31.5 g/dl (32.0-37.0); MEAN PLATELET VOLUME 12.3 fl (7.4-10.4); MONOCYTE # 0.3 10^3/ul (0.3-0.9); MONOCYTES % 9.7 % (0.0-11.0); NEUTROPHIL # 2.1 10^3/ul (1.6-7.5); NEUTROPHILS % 66.3 % (39.0-77.0); PLATELET COUNT 114 10^3/UL (140-415); RED BLOOD COUNT 2.28 10^6/ul (4.70-6.10); RED CELL DISTRIBUTION WIDTH 20.8 % (11.5-14.5); WHITE BLOOD COUNT 3.2 10^3/ul (4.8-10.8)
[2017-07-27 11:59] LABS: ALBUMIN 2.7 g/dl (3.3-4.9); ALBUMIN/GLOBULIN RATIO 0.64; BILIRUBIN,INDIRECT 0.5 mg/dl (0-1.1); BILIRUBIN,TOTAL 0.5 mg/dl (0.2-1.3); CREATININE 0.99 mg/dl (0.61-1.24); POTASSIUM 4.2 mmol/L (3.5-5.1); TOTAL PROTEIN 6.9 g/dl (6.1-8.1)
--- NOTE | 2017-07-27 13:57 | PN ---
Date/Time of Note Date/Time of Note DATE: 07/27/17 TIME: 13:54 Assessment/Plan VTE Prophylaxis VTE Prophylaxis Intervention: SCD's Lines/Catheters IV Catheter Type (from [facility]): Saline Lock Urinary Cath still in place: No Assessment/Plan Chief Complaint/Hosp Course 87 y/o male with pmh gout, HLD, HTN who was admitted after a fall at home on resulting in L1 compression fracture. This is being managed conservatively. Patient has had pancytopenia, s/p BM bx, some studies pending, presumed to be 2/ 2 MDS. Hospital course c/b volume overload, now more hypovolemic after diuresis and poor po intake. Patient is severely debilitated, being considered for hospice. Problems: Assessment/Plan #HTN-improved -continue MTP only at this time #pancytopenia-pending some other studies, presumed MDS -appreciate heme recs -continue epo per heme #abnl LFT-unclear etiology. consider sequelae of congestive hepatopathy.patient clinically stable at this time with benign abd exam -will trend right now -no utility to workup at this time as patient being transitioned to comfort care given overall poor prognosis #gout -febuxostat #debility -too deconditioned for rehab -being considered for hospice #goals of care-patient with overall poor prognosis. will try to encourage PO. Patient unlikely to improve much from current clinical status given that he is not a rehab candidate and his clinical status will likely continue to deteriorate. This quality of life would likely be unacceptable to patient. Will avoid excessive workup, blood draws, procedures at this time. Family amenable to hospice. Patient being considered. Subjective 24 Hr Interval Summary Free Text/Dictation Patient has eaten a little more today. Taking his meds. Has been nicer to staff. Remembers me. Denies fevers, chills, nausea, vomiting, diarrhea, constipation, chest pain, sob, cough. alert and oriented to person, place, situation, not time and date. Exam/Review of Systems Vital Signs Vitals Vital Signs Date Time Temp Pulse Resp B/P Pulse Ox O2 Delivery O2 Flow Rate FiO2 07/27/17 08:45 97.8 69 16 101/56 97 07/27/17 02:03 Room Air 07/26/17 08:00 2.0 Intake and Output 07/26/17 07/26/17 07/27/17 15:00 23:00 07:00 Intake Total 170 ml 700 ml Output Total 1000 ml Balance 170 ml -300 ml Exam GEN-NAD, alert to person, place, situation not date or time. Appears cachectic HEENT- dry mucus membranes, no scleral icterus. Atraumatic, normocephalic Pulm-CTAB on anterior exam CV-rrr, nml s1/s2, no m/r/g appreciated abd-soft, nt/nd, +BS ext-no c/c/e Results Result Diagram: 07/27/17 1055 07/27/17 1055 Results 24 hrs Laboratory Tests Test 07/27/17 10:55 White Blood Count 3.2 L Red Blood Count 2.28 L Hemoglobin 8.2 L Hematocrit 26.0 L Mean Corpuscular Volume 114.0 H Mean Corpuscular Hemoglobin 36.0 H Mean Corpuscular Hemoglobin Concent 31.5 L Red Cell Distribution Width 20.8 H Platelet Count 114 L Mean Platelet Volume 12.3 H Neutrophils % 66.3 Lymphocytes % 20.6 Monocytes % 9.7 Eosinophils % 2.2 Basophils % 0.3 Nucleated Red Blood Cells % 0.0 Neutrophils # 2.1 Lymphocytes # 0.7 L Monocytes # 0.3 Eosinophils # 0.1 Basophils # 0.0 Nucleated Red Blood Cells # 0.0 Sodium Level 141 Potassium Level 4.2 Chloride Level 108 Carbon Dioxide Level 26 Anion Gap 11 Blood Urea Nitrogen 29 H Creatinine 0.99 Glucose Level 113 Calcium Level 8.0 L Total Bilirubin 0.5 Direct Bilirubin 0.00 Indirect Bilirubin 0.5 Aspartate Amino Transf (AST/SGOT) 69 H Alanine Aminotransferase (ALT/SGPT) 109 H Alkaline Phosphatase 246 H Total Protein 6.9 Albumin 2.7 L Globulin 4.20 H Albumin/Globulin Ratio 0.64 Medications Medications Current Medications Brimonidine Tartrate (Alphagan 0.2%) 1 drop Q8 BOTH EYES Last administered on 07/26/17 21:25; Admin Dose 1 DROP; Start 07/14/17 at 14:00 Cyanocobalamin (Vitamin B12) 1,000 mcg DAILY PO Last administered on 08:48; Admin Dose 1,000 MCG; Start 07/15/17 at 09:00 Febuxostat (Uloric) 80 mg DAILY PO Last administered on 07/27/17 08:48; Admin Dose 80 MG; Start 07/14/17 at 13:00 Latanoprost (Xalatan) 1 drop QHS BOTH EYES Last administered on 07/26/17 21: 25; Admin Dose 1 DROP; Start 07/14/17 at 21:00 Metoprolol Tartrate (Lopressor) 25 mg BID PO Last administered on 07/26/17 21 :25; Admin Dose 25 MG; Start 07/14/17 at 13:00 Lorazepam (Ativan) 0.25 mg BID PRN PO ANXIETY Last administered on 07/18/17 17:12; Admin Dose 0.25 MG; Start 07/14/17 at 13:00 Ondansetron HCl (Zofran Inj) 4 mg Q6H PRN IV NAUSEA AND/OR VOMITING Last administered on 07/18/17 13:05; Admin Dose 4 MG; Start 07/14/17 at 13:00 Acetaminophen/ Hydrocodone Bitart ([place] (5/325)) 1 tab Q6H PRN PO MODERATE PAIN LEVEL 4-6 Last administered on 07/27/17 08:48; Admin Dose 1 TAB; Start 07/14/17 at 13:00 Docusate Sodium (Colace) 100 mg Q12H PRN PO CONSTIPATION Last administered on 07/22/17 05:44; Admin Dose 100 MG; Start 07/14/17 at 13:00 Zolpidem Tartrate (Ambien) 5 mg QHS PRN PO SLEEP; Start 07/14/17 at 13:00 Memantine (Namenda) 5 mg BID PO Last administered on 07/27/17 08:48; Admin Dose 5 MG; Start 07/14/17 at 21:00 Aspirin (Halfprin) 81 mg DAILY PO Last administered on 07/27/17 08:48; Admin Dose 81 MG; Start 07/15/17 at 09:00 Neomycin/ Polymyxin/ Bacitracin (Neosporin Topical Oint) 1 applic DAILY TOP Last administered on 07/25/17 09:22; Admin Dose 1 APPLIC; Start 07/15/17 at 11:00 Epoetin Rosendo (Epogen (Esrd)) 10,000 units TuThSa@17 SC Last administered on 16:24; Admin Dose 10,000 UNITS; Start 07/17/17 at 17:00 Magnesium Hydroxide (Milk Of Mag) 30 ml BID PRN PO CONSTIPATION Last administered on 07/22/17 05:44; Admin Dose 30 ML; Start 07/17/17 at 10:30 Bisacodyl (Dulcolax Supp) 10 mg DAILY PRN [place] CONSTIPATION; Start 07/17/17 at 10:30 Acetaminophen (Tylenol Tab) 650 mg Q6H PRN PO PAIN AND OR ELEVATED TEMP Last administered on 07/27/17 04:45; Admin Dose 650 MG; Start 07/18/17 at 20:30 Hydromorphone HCl (Dilaudid) 0.5 mg Q3H PRN IV SEVERE PAIN LEVEL 7-10 Last administered on 07/26/17 11:02; Admin Dose 0.5 MG; Start 07/26/17 at 00:00 TURNER ODONNELL MD Jul 27, 2017 13:57
--- NOTE | 2017-07-27 15:43 | PN ---
Date/Time of Note Date/Time of Note DATE: 07/27/17 TIME: 15:41 Assessment/Plan VTE Prophylaxis VTE Prophylaxis Intervention: other Lines/Catheters IV [facility] Type (from [facility]): Saline Lock Urinary Cath still in place: No Reason Cath still needed: other (indicate) Assessment/Plan Assessment/Plan 87 yo man known to me as an outpatient. 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 This year he had pancytopenia with normal B12 and folate, borderline iron and a low EPO assay. Atrial of iron was unsuccessful and he is now getting Procrit trial with slight rise of 1 gm/dl noted over a six week period. 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 Today he was admitted via the ER after falling at home. Note that Dr. Moreno had been reducing the amount of antihypertensives that he took. Pt has also been encouraged to eat better but family says that he eats poorly and is extremely inactive. The fall at home was likely due to slipping and pt denies LOC, chest pain or palpitations. >Thrombocytopenia Numerically improved. Continue to monitor CBC >Anemia- stable Suspect from primary bone marrow dysfunction Monitor CBC with prophylactic blood transfusion for hemoglobin less than 7 g/dL , but his hemoglobin has remained stable >CAD Patient noted to have elevation in troponin but in absence of symptoms. Continue to monitor clinical symptoms Continue medical management. Subjective 24 Hr Interval Summary Free Text/Dictation Patient weak Eating minimally Exam/Review of Systems Vital Signs Vitals Vital Signs Date Time Temp Pulse Resp B/P Pulse Ox O2 Delivery O2 Flow Rate FiO2 07/27/17 08:45 97.8 69 16 101/56 97 07/27/17 02:03 Room Air 07/26/17 08:00 2.0 Intake and Output 07/26/17 07/26/17 07/27/17 15:00 23:00 07:00 Intake Total 170 ml 700 ml Output Total 1000 ml Balance 170 ml -300 ml Exam Constitutional: frail, oriented Psych: no complaints Head: atraumatic, normocephalic Eyes: EOMI, nl conjunctiva, nl sclera Neck: non-tender, supple Respiratory: clear to auscultation, diminished breath sounds Cardiovascular: nl pulses, regular rate and rhythm Gastrointestinal: non-tender, soft Results Result Diagram: 07/27/17 1055 07/27/17 1055 Results 24 hrs Laboratory Tests Test 07/27/17 10:55 White Blood Count 3.2 L Red Blood Count 2.28 L Hemoglobin 8.2 L Hematocrit 26.0 L Mean Corpuscular Volume 114.0 H Mean Corpuscular Hemoglobin 36.0 H Mean Corpuscular Hemoglobin Concent 31.5 L Red Cell Distribution Width 20.8 H Platelet Count 114 L Mean Platelet Volume 12.3 H Neutrophils % 66.3 Lymphocytes % 20.6 Monocytes % 9.7 Eosinophils % 2.2 Basophils % 0.3 Nucleated Red Blood Cells % 0.0 Neutrophils # 2.1 Lymphocytes # 0.7 L Monocytes # 0.3 Eosinophils # 0.1 Basophils # 0.0 Nucleated Red Blood Cells # 0.0 Sodium Level 141 Potassium Level 4.2 Chloride Level 108 Carbon Dioxide Level 26 Anion Gap 11 Blood Urea Nitrogen 29 H Creatinine 0.99 Glucose Level 113 Calcium Level 8.0 L Total Bilirubin 0.5 Direct Bilirubin 0.00 Indirect Bilirubin 0.5 Aspartate Amino Transf (AST/SGOT) 69 H Alanine Aminotransferase (ALT/SGPT) 109 H Alkaline Phosphatase 246 H Total Protein 6.9 Albumin 2.7 L Globulin 4.20 H Albumin/Globulin Ratio 0.64 Medications Medications Current Medications Brimonidine Tartrate ([place]ph[place] 0.2%) 1 drop Q8 BOTH EYES Last administered on 07/26/17 21:25; Admin Dose 1 DROP; Start 07/14/17 at 14:00 Cyanocobalamin (Vitamin B12) 1,000 mcg DAILY PO Last administered on 08:48; Admin Dose 1,000 MCG; Start 07/15/17 at 09:00 Febuxostat (Uloric) 80 mg DAILY PO Last administered on 07/27/17 08:48; Admin Dose 80 MG; Start 07/14/17 at 13:00 Latanoprost (Xalatan) 1 drop QHS BOTH EYES Last administered on 07/26/17 21: 25; Admin Dose 1 DROP; Start 07/14/17 at 21:00 Metoprolol Tartrate (Lopressor) 25 mg BID PO Last administered on 07/26/17 21 :25; Admin Dose 25 MG; Start 07/14/17 at 13:00 Lorazepam (Ativan) 0.25 mg BID PRN PO ANXIETY Last administered on 07/18/17 17:12; Admin Dose 0.25 MG; Start 07/14/17 at 13:00 Ondansetron HCl (Zofran Inj) 4 mg Q6H PRN IV NAUSEA AND/OR VOMITING Last administered on 07/18/17 13:05; Admin Dose 4 MG; Start 07/14/17 at 13:00 Acetaminophen/ Hydrocodone Bitart ([place] (5/325)) 1 tab Q6H PRN PO MODERATE PAIN LEVEL 4-6 Last administered on 07/27/17 08:48; Admin Dose 1 TAB; Start 07/14/17 at 13:00 Docusate Sodium (Colace) 100 mg Q12H PRN PO CONSTIPATION Last administered on 07/22/17 05:44; Admin Dose 100 MG; Start 07/14/17 at 13:00 Zolpidem Tartrate (Ambien) 5 mg QHS PRN PO SLEEP; Start 07/14/17 at 13:00 Memantine (Namenda) 5 mg BID PO Last administered on 07/27/17 08:48; Admin Dose 5 MG; Start 07/14/17 at 21:00 Aspirin (Halfprin) 81 mg DAILY PO Last administered on 07/27/17 08:48; Admin Dose 81 MG; Start 07/15/17 at 09:00 Neomycin/ Polymyxin/ Bacitracin (Neosporin Topical Oint) 1 applic DAILY TOP Last administered on 07/25/17 09:22; Admin Dose 1 APPLIC; Start 07/15/17 at 11:00 Epoetin Rosendo (Epogen (Esrd)) 10,000 units TuThSa@17 SC Last administered on 16:24; Admin Dose 10,000 UNITS; Start 07/17/17 at 17:00 Magnesium Hydroxide (Milk Of Mag) 30 ml BID PRN PO CONSTIPATION Last administered on 07/22/17 05:44; Admin Dose 30 ML; Start 07/17/17 at 10:30 Bisacodyl (Dulcolax Supp) 10 mg DAILY PRN [place] CONSTIPATION; Start 07/17/17 at 10:30 Acetaminophen (Tylenol Tab) 650 mg Q6H PRN PO PAIN AND OR ELEVATED TEMP Last administered on 07/27/17 04:45; Admin Dose 650 MG; Start 07/18/17 at 20:30 Hydromorphone HCl (Dilaudid) 0.5 mg Q3H PRN IV SEVERE PAIN LEVEL 7-10 Last administered on 07/26/17t 11:02; Admin Dose 0.5 MG; Start 07/26/17 at 00:00 ANITA ANTHONY MD Jul 27, 2017 15:43
--- NOTE | 2017-07-27 17:01 | CONS ---
Date/Time of Note Date/Time of Note DATE: 07/27/17 TIME: 17:00 Consult Date/Type/Reason Admit Date/Time Jul 14, 2017 at 10:41 Initial Consult Date 07/24/17 Type of Consultation: Pulmonary Ordering Provider: CHERRY GRIMM MD Subjective No events. Objective Vital Signs Date Time Temp Pulse Resp B/P Pulse Ox O2 Delivery O2 Flow Rate FiO2 07/27/17 08:45 97.8 69 16 101/56 97 07/27/17 02:03 Room Air 07/26/17 08:00 2.0 Intake and Output 07/26/17 07/26/17 07/27/17 15:00 23:00 07:00 Intake Total 170 ml 700 ml Output Total 1000 ml Balance 170 ml -300 ml Exam HEENT: Neck supple; no JVD; no LAD CVS: RRR, S1 and S2 CHEST: Clear ABD: Soft, NT, + BS EXT: No c/c/e Results/Medications Result Diagram: 07/27/17 1055 07/27/17 1055 Results 24 hrs Laboratory Tests Test 07/27/17 10:55 White Blood Count 3.2 L Red Blood Count 2.28 L Hemoglobin 8.2 L Hematocrit 26.0 L Mean Corpuscular Volume 114.0 H Mean Corpuscular Hemoglobin 36.0 H Mean Corpuscular Hemoglobin Concent 31.5 L Red Cell Distribution Width 20.8 H Platelet Count 114 L Mean Platelet Volume 12.3 H Neutrophils % 66.3 Lymphocytes % 20.6 Monocytes % 9.7 Eosinophils % 2.2 Basophils % 0.3 Nucleated Red Blood Cells % 0.0 Neutrophils # 2.1 Lymphocytes # 0.7 L Monocytes # 0.3 Eosinophils # 0.1 Basophils # 0.0 Nucleated Red Blood Cells # 0.0 Sodium Level 141 Potassium Level 4.2 Chloride Level 108 Carbon Dioxide Level 26 Anion Gap 11 Blood Urea Nitrogen 29 H Creatinine 0.99 Glucose Level 113 Calcium Level 8.0 L Total Bilirubin 0.5 Direct Bilirubin 0.00 Indirect Bilirubin 0.5 Aspartate Amino Transf (AST/SGOT) 69 H Alanine Aminotransferase (ALT/SGPT) 109 H Alkaline Phosphatase 246 H Total Protein 6.9 Albumin 2.7 L Globulin 4.20 H Albumin/Globulin Ratio 0.64 Medications Current Medications Brimonidine Tartrate (Alphagan 0.2%) 1 drop Q8 BOTH EYES Last administered on 07/26/17 21:25; Admin Dose 1 DROP; Start 07/14/17 at 14:00 Cyanocobalamin (Vitamin B12) 1,000 mcg DAILY PO Last administered on 08:48; Admin Dose 1,000 MCG; Start 07/15/17 at 09:00 Febuxostat (Uloric) 80 mg DAILY PO Last administered on 07/27/17 08:48; Admin Dose 80 MG; Start 07/14/17 at 13:00 Latanoprost (Xalatan) 1 drop QHS BOTH EYES Last administered on 07/26/17 21: 25; Admin Dose 1 DROP; Start 07/14/17 at 21:00 Metoprolol Tartrate (Lopressor) 25 mg BID PO Last administered on 07/26/17 21 :25; Admin Dose 25 MG; Start 07/14/17 at 13:00 Lorazepam (Ativan) 0.25 mg BID PRN PO ANXIETY Last administered on 07/18/17 17:12; Admin Dose 0.25 MG; Start 07/14/17 at 13:00 Ondansetron HCl (Zofran Inj) 4 mg Q6H PRN IV NAUSEA AND/OR VOMITING Last administered on 07/18/17 13:05; Admin Dose 4 MG; Start 07/14/17 at 13:00 Acetaminophen/ Hydrocodone Bitart ([place] (5/325)) 1 tab Q6H PRN PO MODERATE PAIN LEVEL 4-6 Last administered on 07/27/17 08:48; Admin Dose 1 TAB; Start 07/14/17 at 13:00 Docusate Sodium (Colace) 100 mg Q12H PRN PO CONSTIPATION Last administered on 07/22/17 05:44; Admin Dose 100 MG; Start 07/14/17 at 13:00 Zolpidem Tartrate (Ambien) 5 mg QHS PRN PO SLEEP; Start 07/14/17 at 13:00 Memantine (Namenda) 5 mg BID PO Last administered on 07/27/17 08:48; Admin Dose 5 MG; Start 07/14/17 at 21:00 Aspirin (Halfprin) 81 mg DAILY PO Last administered on 07/27/17 08:48; Admin Dose 81 MG; Start 10/10/17 at 09:00 Neomycin/ Polymyxin/ Bacitracin (Neosporin Topical Oint) 1 applic DAILY TOP Last administered on 07/25/17 09:22; Admin Dose 1 APPLIC; Start 07/15/17 at 11:00 Epoetin Rosendo (Epogen (Esrd)) 10,000 units TuThSa@17 SC Last administered on 16:24; Admin Dose 10,000 UNITS; Start 07/17/17 at 17:00 Magnesium Hydroxide (Milk Of Mag) 30 ml BID PRN PO CONSTIPATION Last administered on 07/22/17 05:44; Admin Dose 30 ML; Start 07/17/17 at 10:30 Bisacodyl (Dulcolax Supp) 10 mg DAILY PRN [place] CONSTIPATION; Start 07/17/17 at 10:30 Acetaminophen (Tylenol Tab) 650 mg Q6H PRN PO PAIN AND OR ELEVATED TEMP Last administered on 07/27/17 04:45; Admin Dose 650 MG; Start 07/18/17 at 20:30 Hydromorphone HCl (Dilaudid) 0.5 mg Q3H PRN IV SEVERE PAIN LEVEL 7-10 Last administered on 07/26/17 11:02; Admin Dose 0.5 MG; Start 07/26/17 at 00:00 Assessment/Plan Additional Assessment/Plan IMP: 1. Patient admitted with generalized weakness resulting multiple falls. 2. Patient developed shortness of breath due to noncardiogenic pulmonary edema with marked clinical and radiological improvement. Responded well to Lasix. 3. Myelodysplastic syndrome with pancytopenia. Status post bone marrow biopsy. 4. Improving hypoxemia. RECS: 1. Strict I/O's 2. Gentle diuresis prn 3. Aspiration precautions DOLLY GRANDA MD Jul 27, 2017 17:01
[2017-07-27 19:45] VITALS: BP 116/58; RESP 18
[2017-07-27] MEDS: LATANOPROST 0.005% 2.5 ML OPH BOTH EYES SCH (20:50)
[2017-07-27] MEDS: HYDROmorphONE 0.5 MG/0.5 ML SYG IV PRN (20:57)
[2017-07-28 02:43] VITALS: BP 108/54; RESP 56
[2017-07-28] MEDS: BRIMONIDINE 0.2% 5 ML BTL BOTH EYES SCH ×2 (06:00→14:00)
[2017-07-28] MEDS: CYANOCOBALAMIN 500 MCG TAB PO SCH (08:45)
[2017-07-28] MEDS: MEMANTINE 5 MG TAB PO SCH (08:46)
[2017-07-28] MEDS: NEOMYC/POLYMYX/BACIT 30 GM OINT TOP SCH (08:46)
[2017-07-28] MEDS: ASPIRIN (EC) 81 MG TAB PO SCH (08:46)
[2017-07-28] MEDS: FEBUXOSTAT 40 MG TABLET PO SCH (08:46)
[2017-07-28] MEDS: METOPROLOL 25 MG TAB PO SCH (08:46)
[2017-07-28] MEDS: HYDROCODONE/APAP (5/325) TAB PO PRN ×2 (08:46→14:50)
--- NOTE | 2017-07-28 09:25 | PN ---
Date/Time of Note Date/Time of Note DATE: 07/28/17 TIME: 09:18 Assessment/Plan VTE Prophylaxis VTE Prophylaxis Intervention: SCD's Lines/Catheters IV [facility]from [facility] Saline Lock Urinary Cath still in place: No Assessment/Plan Chief Complaint/Hosp Course 1. He is awake and alert this morning , his blood pressure is higher and he is requiring less oxygen. The last chest x-ray done showed improved aeration with decreased bilateral infiltrates. 2. Pancytopenia . The preliminary results of the bone marrow aspirate and biopsy show a hypocellular bone marrow. The findings are consistent with myelodysplastic syndrome. He is not responding to erythropoietin and continues to have low platelets and low white blood count. 3. hypertension , BP is lower , he is off BP meds . 4. dilated ventricles on CT scan of the brain, r/o Normal pressure hydrocephalus . Neuro does not think patient has a normal pressure hydrocephalus . 5. lumbar spine fractures , 1 of the lumbar spine fractures is acute. He also has some lumbar disc disease with stenosis. He is not complaining of pain. 6. He has a urinary tract infection . treated . 7. He has coronary artery disease and has been diagnosed with an NSTEMI . He did have an episode of congestive heart failure. The patient has severe coronary artery disease and severe congestive heart failure. 8. The patient is being evaluated for hospice. There are several diagnoses that could be used for hospice including myelodysplastic syndrome with pancytopenia, congestive heart failure . The hospice team will be contacted for reevaluation today. Problems: Subjective 24 Hr Interval Summary Free Text/Dictation Patient is awake and alert. He denies any pain. He denies shortness of breath. The patient's son Marshall was in the room with him. Constitutional: no complaints Eyes: no complaints Cardiovascular: no complaints Gastrointestinal: no complaints Genitourinary: no complaints Musculoskeletal: no complaints Neurologic: dizziness Exam/Review of Systems Vital Signs Vitals Vital Signs Date Time Temp Pulse Resp B/P Pulse Ox O2 Delivery O2 Flow Rate FiO2 07/28/17 02:43 97.9 85 56 108/54 20 07/27/17 20:20 2.0 07/27/17 02:03 Room Air Intake and Output 07/27/17 07/27/17 07/28/17 15:00 23:00 07:00 Intake Total 240 ml 100 ml Balance 240 ml 100 ml Exam Constitutional: alert, frail, oriented ENMT: nl external ears & nose Neck: supple Respiratory: clear to auscultation, diminished breath sounds Cardiovascular: regular rate and rhythm Musculoskeletal: nl extremities to inspection Results Result Diagram: 07/27/17 1055 07/27/17 1055 Results 24 hrs Laboratory Tests Test 07/27/17 10:55 White Blood Count 3.2 L Red Blood Count 2.28 L Hemoglobin 8.2 L Hematocrit 26.0 L Mean Corpuscular Volume 114.0 H Mean Corpuscular Hemoglobin 36.0 H Mean Corpuscular Hemoglobin Concent 31.5 L Red Cell Distribution Width 20.8 H Platelet Count 114 L Mean Platelet Volume 12.3 H Neutrophils % 66.3 Lymphocytes % 20.6 Monocytes % 9.7 Eosinophils % 2.2 Basophils % 0.3 Nucleated Red Blood Cells % 0.0 Neutrophils # 2.1 Lymphocytes # 0.7 L Monocytes # 0.3 Eosinophils # 0.1 Basophils # 0.0 Nucleated Red Blood Cells # 0.0 Sodium Level 141 Potassium Level 4.2 Chloride Level 108 Carbon Dioxide Level 26 Anion Gap 11 Blood Urea Nitrogen 29 H Creatinine 0.99 Glucose Level 113 Calcium Level 8.0 L Total Bilirubin 0.5 Direct Bilirubin 0.00 Indirect Bilirubin 0.5 Aspartate Amino Transf (AST/SGOT) 69 H Alanine Aminotransferase (ALT/SGPT) 109 H Alkaline Phosphatase 246 H Total Protein 6.9 Albumin 2.7 L Globulin 4.20 H Albumin/Globulin Ratio 0.64 Medications Medications Current Medications Brimonidine Tartrate (Alphagan 0.2%) 1 drop Q8 BOTH EYES Last administered on 07/26/17 21:25; Admin Dose 1 DROP; Start 07/14/17 at 14:00 Cyanocobalamin (Vitamin B12) 1,000 mcg DAILY PO Last administered on 08:45; Admin Dose 1,000 MCG; Start 07/15/17 at 09:00 Febuxostat (Uloric) 80 mg DAILY PO Last administered on 07/28/17 08:46; Admin Dose 80 MG; Start 07/14/17 at 13:00 Latanoprost (Xalatan) 1 drop QHS BOTH EYES Last administered on 07/27/17 20: 50; Admin Dose 1 DROP; Start 07/14/17 at 21:00 Metoprolol Tartrate (Lopressor) 25 mg BID PO Last administered on 07/28/17 08 :46; Admin Dose 25 MG; Start 07/14/17 at 13:00 Lorazepam (Ativan) 0.25 mg BID PRN PO ANXIETY Last administered on 07/18/17 17:12; Admin Dose 0.25 MG; Start 07/14/17 at 13:00 Ondansetron HCl (Zofran Inj) 4 mg Q6H PRN IV NAUSEA AND/OR VOMITING Last administered on 07/18/17 13:05; Admin Dose 4 MG; Start 07/14/17 at 13:00 Acetaminophen/ Hydrocodone Bitart ([place] (5/325)) 1 tab Q6H PRN PO MODERATE PAIN LEVEL 4-6 Last administered on 07/28/17 08:46; Admin Dose 1 TAB; Start 07/14/17 at 13:00 Docusate Sodium (Colace) 100 mg Q12H PRN PO CONSTIPATION Last administered on 07/22/17 05:44; Admin Dose 100 MG; Start 07/14/17 at 13:00 Zolpidem Tartrate (Ambien) 5 mg QHS PRN PO SLEEP; Start 07/14/17 at 13:00 Memantine (Namenda) 5 mg BID PO Last administered on 07/28/17 08:46; Admin Dose 5 MG; Start 07/14/17 at 21:00 Aspirin (Halfprin) 81 mg DAILY PO Last administered on 07/28/17 08:46; Admin Dose 81 MG; Start 07/15/17 at 09:00 Neomycin/ Polymyxin/ Bacitracin (Neosporin Topical Oint) 1 applic DAILY TOP Last administered on 07/28/17 08:46; Admin Dose 1 APPLIC; Start 07/15/17 at 11:00 Epoetin Rosendo (Epogen (Esrd)) 10,000 units TuThSa@17 SC Last administered on 16:24; Admin Dose 10,000 UNITS; Start 07/17/17 at 17:00 Magnesium Hydroxide (Milk Of Mag) 30 ml BID PRN PO CONSTIPATION Last administered on 07/22/17 05:44; Admin Dose 30 ML; Start 07/17/17 at 10:30 Bisacodyl (Dulcolax Supp) 10 mg DAILY PRN [place] CONSTIPATION; Start 07/17/17 at 10:30 Acetaminophen (Tylenol Tab) 650 mg Q6H PRN PO PAIN AND OR ELEVATED TEMP Last administered on 07/27/17 04:45; Admin Dose 650 MG; Start 07/18/17 at 20:30 Hydromorphone HCl (Dilaudid) 0.5 mg Q3H PRN IV SEVERE PAIN LEVEL 7-10 Last administered on 07/27/17 20:57; Admin Dose 0.5 MG; Start 07/26/17 at 00:00 YANDY MCDERMOTT MD Jul 28, 2017 09:25
[2017-07-28 09:33] VITALS: BP 111/58; PULSE 83; RESP 16
[2017-07-28 14:48] VITALS: BP 105/59; RESP 20
--- NOTE | 2017-07-28 16:28 | CONS ---
Date/Time of Note Date/Time of Note DATE: 07/28/17 TIME: 16:26 Consult Date/Type/Reason Admit Date/Time Jul 14, 2017 at 10:41 Initial Consult Date 07/15/17 Type of Consultation: Pulmonary Ordering Provider: CHERRY GRIMM MD Subjective Comfortable at rest no acute distress Objective Vital Signs Date Time Temp Pulse Resp B/P Pulse Ox O2 Delivery O2 Flow Rate FiO2 07/28/17 14:48 98.0 62 20 105/59 94 07/28/17 09:33 Nasal Cannula 2.0 Intake and Output 07/27/17 07/27/17 07/28/17 15:00 23:00 07:00 Intake Total 240 ml 100 ml Balance 240 ml 100 ml Exam GENERAL: Elderly gentleman appears comfortable at rest no acute distress VITAL SIGNS: per chart NECK: Supple. No JVD or lymphadenopathy. CARDIAC EXAM: S1, S2. No added sounds or murmurs. CHEST: clear bilaterally, No added sounds, rales or wheezes ABDOMEN: Soft, nontender. No guarding or rebound. EXTREMITIES: No cyanosis, clubbing or edema. NEUROLOGIC: Generalized weakness. No focal deficits. Results/Medications Result Diagram: 07/27/17 1055 07/27/17 1055 Medications Current Medications Brimonidine Tartrate (Alphagan 0.2%) 1 drop Q8 BOTH EYES Last administered on 07/26/17 21:25; Admin Dose 1 DROP; Start 07/14/17 at 14:00 Cyanocobalamin (Vitamin B12) 1,000 mcg DAILY PO Last administered on 08:45; Admin Dose 1,000 MCG; Start 07/15/17 at 09:00 Febuxostat (Uloric) 80 mg DAILY PO Last administered on 07/28/17 08:46; Admin Dose 80 MG; Start 07/14/17 at 13:00 Latanoprost (Xalatan) 1 drop QHS BOTH EYES Last administered on 07/27/17 20: 50; Admin Dose 1 DROP; Start 07/14/17 at 21:00 Metoprolol Tartrate (Lopressor) 25 mg BID PO Last administered on 07/28/17 08 :46; Admin Dose 25 MG; Start 07/14/17 at 13:00 Lorazepam (Ativan) 0.25 mg BID PRN PO ANXIETY Last administered on 07/18/17 17:12; Admin Dose 0.25 MG; Start 07/14/17 at 13:00 Ondansetron HCl (Zofran Inj) 4 mg Q6H PRN IV NAUSEA AND/OR VOMITING Last administered on 07/18/17 13:05; Admin Dose 4 MG; Start 07/14/17 at 13:00 Acetaminophen/ Hydrocodone Bitart ([place] (5/325)) 1 tab Q6H PRN PO MODERATE PAIN LEVEL 4-6 Last administered on 07/28/17 14:50; Admin Dose 1 TAB; Start 07/14/17 at 13:00 Docusate Sodium (Colace) 100 mg Q12H PRN PO CONSTIPATION Last administered on 07/22/17 05:44; Admin Dose 100 MG; Start 07/14/17 at 13:00 Zolpidem Tartrate (Ambien) 5 mg QHS PRN PO SLEEP; Start 07/14/17 at 13:00 Memantine (Namenda) 5 mg BID PO Last administered on 07/28/17 08:46; Admin Dose 5 MG; Start 07/14/17 at 21:00 Aspirin (Halfprin) 81 mg DAILY PO Last administered on 07/28/17 08:46; Admin Dose 81 MG; Start 07/15/17 at 09:00 Neomycin/ Polymyxin/ Bacitracin (Neosporin Topical Oint) 1 applic DAILY TOP Last administered on 07/28/17 08:46; Admin Dose 1 APPLIC; Start 07/15/17 at 11:00 Epoetin Rosendo (Epogen (Esrd)) 10,000 units TuThSa@17 SC Last administered on 16:24; Admin Dose 10,000 UNITS; Start 07/17/17 at 17:00 Magnesium Hydroxide (Milk Of Mag) 30 ml BID PRN PO CONSTIPATION Last administered on 07/22/17 05:44; Admin Dose 30 ML; Start 07/17/17 at 10:30 Bisacodyl (Dulcolax Supp) 10 mg DAILY PRN [place] CONSTIPATION; Start 07/17/17 at 10:30 Acetaminophen (Tylenol Tab) 650 mg Q6H PRN PO PAIN AND OR ELEVATED TEMP Last administered on 07/27/17 04:45; Admin Dose 650 MG; Start 07/18/17 at 20:30 Hydromorphone HCl (Dilaudid) 0.5 mg Q3H PRN IV SEVERE PAIN LEVEL 7-10 Last administered on 07/27/17t 20:57; Admin Dose 0.5 MG; Start 07/26/17 at 00:00 Assessment/Plan Chief Complaint/Hosp Course IMP: 1. Patient admitted with generalized weakness resulting multiple falls. 2. Patient developed shortness of breath due to noncardiogenic pulmonary edema with marked clinical and radiological improvement. Responded well to Lasix. 3. Myelodysplastic syndrome with pancytopenia. Status post bone marrow biopsy. 4. Improving hypoxemia. RECS: 1. Strict I/O's 2. Gentle diuresis prn 3. Aspiration precautions DC planning okay from primary standpoint Problems: PAPA BUSH MD[facility] Jul 28, 2017 16:28
--- NOTE | 2017-07-28 16:38 | PN ---
Date/Time of Note Date/Time of Note DATE: 07/28/17 TIME: 16:35 Assessment/Plan VTE Prophylaxis VTE Prophylaxis Intervention: other (aspirin) Lines/Catheters IV [facility] Saline Lock Urinary Cath still in place: No Assessment/Plan Chief Complaint/Hosp Course 87 yo man known to me as an outpatient. 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 This year he had pancytopenia with normal B12 and folate, borderline iron and a low EPO assay. Atrial of iron was unsuccessful and he is now getting Procrit trial with slight rise of 1 gm/dl noted over a six week period. 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 Today he was admitted via the ER after falling at home. Note that Dr. Moreno had been reducing the amount of antihypertensives that he took. Pt has also been encouraged to eat better but family says that he eats poorly and is extremely inactive. The fall at home was likely due to slipping and pt denies LOC, chest pain or palpitations. Troponin elevation noted and conservative medical treatment is advised. This is very reasonable given age and poor performance status. Hgb is still low at ~ 7 1/2. Problems: Assessment/Plan Hgb is still low, consistent with MDS. WBC is 3.2, which is low but is mainly a lymphopenia consistent with poor nutrition and not neutropenia. Platelets are only minimally decreased. Dr. Moreno is investigating hospice and is treating the cardiac failure. I agree with his plans. One could continue the trial of Procrit but so far it appears unsuccessful. Subjective 24 Hr Interval Summary Free Text/Dictation Pt is more alert than last week. He says he is more comfortable. Exam/Review of Systems Vital Signs Vitals Vital Signs Date Time Temp Pulse Resp B/P Pulse Ox O2 Delivery O2 Flow Rate FiO2 07/28/17 14:48 98.0 62 20 105/59 94 07/28/17 09:33 Nasal Cannula 2.0 Intake and Output 07/27/17 07/27/17 07/28/17 14:59 22:59 06:59 Intake Total 240 ml 100 ml Balance 240 ml 100 ml Exam Constitutional: alert Head: normocephalic Eyes: other (pallor) Neck: supple Respiratory: clear to auscultation Cardiovascular: regular rate and rhythm Gastrointestinal: nl liver, spleen, soft Results Result Diagram: 07/27/17 1055 07/27/17 1055 Medications Medications Current Medications Brimonidine Tartrate ([place] 0.2%) 1 drop Q8 BOTH EYES Last administered on 07/26/17 21:25; Admin Dose 1 DROP; Start 07/14/17 at 14:00 Cyanocobalamin (Vitamin B12) 1,000 mcg DAILY PO Last administered on 08:45; Admin Dose 1,000 MCG; Start 07/15/17 at 09:00 Febuxostat (Uloric) 80 mg DAILY PO Last administered on 07/28/17 08:46; Admin Dose 80 MG; Start 07/14/17 at 13:00 Latanoprost (Xalatan) 1 drop QHS BOTH EYES Last administered on 07/27/17 20: 50; Admin Dose 1 DROP; Start 07/14/17 at 21:00 Metoprolol Tartrate (Lopressor) 25 mg BID PO Last administered on 07/28/17 08 :46; Admin Dose 25 MG; Start 07/14/17 at 13:00 Lorazepam (Ativan) 0.25 mg BID PRN PO ANXIETY Last administered on 07/18/17 17:12; Admin Dose 0.25 MG; Start 07/14/17 at 13:00 Ondansetron HCl (Zofran Inj) 4 mg Q6H PRN IV NAUSEA AND/OR VOMITING Last administered on 07/18/17 13:05; Admin Dose 4 MG; Start 07/14/17 at 13:00 Acetaminophen/ Hydrocodone Bitart ([place] (5/325)) 1 tab Q6H PRN PO MODERATE PAIN LEVEL 4-6 Last administered on 07/28/17 14:50; Admin Dose 1 TAB; Start 07/14/17 at 13:00 Docusate Sodium (Colace) 100 mg Q12H PRN PO CONSTIPATION Last administered on 07/22/17 05:44; Admin Dose 100 MG; Start 07/14/17 at 13:00 Zolpidem Tartrate (Ambien) 5 mg QHS PRN PO SLEEP; Start 07/14/17 at 13:00 Memantine (Namenda) 5 mg BID PO Last administered on 07/28/17 08:46; Admin Dose 5 MG; Start 07/14/17 at 21:00 Aspirin (Halfprin) 81 mg DAILY PO Last administered on 07/28/17 08:46; Admin Dose 81 MG; Start 07/15/17 at 09:00 Neomycin/ Polymyxin/ Bacitracin (Neosporin Topical Oint) 1 applic DAILY TOP Last administered on 07/28/17 08:46; Admin Dose 1 APPLIC; Start 07/15/17 at 11:00 Epoetin Rosendo (Epogen (Esrd)) 10,000 units TuThSa@17 SC Last administered on 16:24; Admin Dose 10,000 UNITS; Start 07/17/17 at 17:00 Magnesium Hydroxide (Milk Of Mag) 30 ml BID PRN PO CONSTIPATION Last administered on 07/22/17 05:44; Admin Dose 30 ML; Start 07/17/17 at 10:30 Bisacodyl (Dulcolax Supp) 10 mg DAILY PRN [place] CONSTIPATION; Start 07/17/17 at 10:30 Acetaminophen (Tylenol Tab) 650 mg Q6H PRN PO PAIN AND OR ELEVATED TEMP Last administered on 07/27/17 04:45; Admin Dose 650 MG; Start 07/18/17 at 20:30 Hydromorphone HCl (Dilaudid) 0.5 mg Q3H PRN IV SEVERE PAIN LEVEL 7-10 Last administered on 07/27/17 20:57; Admin Dose 0.5 MG; Start 07/26/17 at 00:00 CHERRY JANE MD Jul 28, 2017 16:38
--- NOTE | 2017-07-28 17:14 | PDOCDIS ---
Discharge Instructions DIAGNOSIS Discharge Diagnosis Fall with compression fracture of L1 CONDITION Patient Condition: Fair HOME CARE INSTRUCTIONS: Diet Instructions: RegularSpecial Diet: REGULAR ACTIVITY: Activity Restrictions: Slowly Increase Activity Rest between Activity Do not Drive Weight Bearing Bathing Restrictions: Shower FOLLOW UP/APPOINTMENTS Follow-up Plan YANDY Myers MD Jul 28, 2017 17:14
[2017-07-28] MEDS: HYDROmorphONE 0.5 MG/0.5 ML SYG IV PRN (18:11)
--- NOTE | 2017-07-29 07:41 | DS ---
DATE OF ADMISSION: 07/14/2017 DATE OF DISCHARGE: 07/28/2017 HISTORY OF PRESENT ILLNESS AND HOSPITAL COURSE: This 87-year-old man was admitted to the hospital a fter he fell at home and injured his back. The patient was seen and admitted through the emergency room because of difficulty walking, debility, and pancytopenia. The patient has been failing over t he last year. He more recently has become more bedridden. When he comes to see me in the office, [place] ban[place]os is in a wheelchair. The patient did lose his balance at home and fell. An MRI of the lumbar spin e did show an acute fracture of L1. The patient was seen in the hospital by a neurologist, Dr. Asad malagon. She saw the patient because the CAT scan of the brain that he had done showed some dilated ventricles. The neurologist did not think the patient had normal pressure hydrocephalus. The yoko ent, while in the hospital, was evaluated for acute rehab; however, it was clear that he would be un able to participate in the rehab program. The family also wanted him evaluated for hospice, which w as another consideration. The patient did undergo a bone marrow aspirate and biopsy while in the [facility]. It did show a hypocellular bone marrow consistent with his pancytopenia. The thought was t hat he has myelodysplastic syndrome. The patient, after the bone marrow aspirate and biopsy, did torres ve an episode of acute congestive heart failure. This was treated with diuretics and he improved. He also had elevated troponin levels while in the hospital. The patient while in the hospital was s een by Dr. Shepard, a continuous improvement coordinator, Dr. Prado, a forensic photographer, and Dr. Minor, a senior database administrator. I n the end, it was decided by the patient's family that they wanted him to go to a senior living fa cility/rehab center. Arrangements were made for [facility] The patient was transferred there today in fair condition. I will follow the yoko ent at [facility]. The patient will be discharged on the following medications: 1. Acetaminophen p.r.n. pain. 2. Epogen 10,000 units 3 times a week. 3. Milk of magnesia. 4. Dulcolax suppository. 5. Vitamin B12 1000 mcg a day. 6. Aspirin 81 mg a day. 7. Xalatan eyedrops 1 drop at bedtime daily. 8. Namenda 5 mg twice a day. 9. Alphagan 1 drop both eyes. 10. Uloric 80 mg a day. 11. Metoprolol 25 mg twice a day. 12. Lorazepam 0.25 mg twice a day p.r.n. anxiety. 13. [place] 5/325 one p.o. every 4-6 hours p.r.n. moderate pain. 14. Docusate sodium 100 mg twice a day. DISCHARGE DIAGNOSES: 1. Fall with acute lumbar spine fracture at L1. 2. Debility. 3. Pancytopenia. 4. Gout. 5. History of hypertension. Dictated By: YANDY MCDERMOTT MD, ND/EARNESTINE Conf#: [id number] DID#: [id number]
== END 2017-07-28 20:15 | DRG 551 ==
LOC: E/R 06:58 → TEL 10:41 → MS1 07-21 14:33
PROVIDERS: ADMIT Internal Medicine; ATTEND Internal Medicine
PROC: 30233N1 Transfusion of Nonautologous Red Blood Cells into Peripheral Vein, Percutaneous Approach (ICD-10-PCS; 2017-07-14)
PROC: 30233N1 Transfusion of Nonautologous Red Blood Cells into Peripheral Vein, Percutaneous Approach (ICD-10-PCS; 2017-07-17)
PROC: 07DR3ZX Extraction of Iliac Bone Marrow, Percutaneous Approach, Diagnostic (ICD-10-PCS; principal; 2017-07-18)
DX: S32.019A Unspecified fracture of first lumbar vertebra, initial encounter for closed fracture (principal); I21.4 Non-ST elevation (NSTEMI) myocardial infarction; I50.31 Acute diastolic (congestive) heart failure; D61.818 Other pancytopenia; E46 Unspecified protein-calorie malnutrition; N39.0 Urinary tract infection, site not specified; B95.2 Enterococcus as the cause of diseases classified elsewhere; S00.01XA Abrasion of scalp, initial encounter; E87.70 Fluid overload, unspecified; I11.0 Hypertensive heart disease with heart failure; W18.39XA Other fall on same level, initial encounter; R53.81 Other malaise; M10.9 Gout, unspecified; M51.9 Unspecified thoracic, thoracolumbar and lumbosacral intervertebral disc disorder; M48.061 Spinal stenosis, lumbar region without neurogenic claudication; I25.10 Atherosclerotic heart disease of native coronary artery without angina pectoris; Z68.22 Body mass index [BMI] 22.0-22.9, adult; G25.81 Restless legs syndrome; R41.81 Age-related cognitive decline; Z51.5 Encounter for palliative care; Z66 Do not resuscitate; Z87.891 Personal history of nicotine dependence; Z91.81 History of falling
CPT/HCPCS: 36415; 36430; 70450; 71010; 72100; 72148; 77012; 80048; 80053; 81001; 81003; 82040; 82270; 82607; 82728; 82746; 82784; 83090; 83540; 83605; 83735; 83880; 83921; 84100; 84155; 84165; 84403; 84443; 84484; 85025; 85045; 85610; 86320; 86325; 86340; 86850; 86900; 86901; 86920; 87040; 87086; 88305; 88313; 90471; 90715; 93005; 93306; 96374; 96375; 97110; 97161; 97530; J0885; J1940; J0696; J1956; J2250; J2405; J3010; J3411; J3475; J7030; J7040; J7042; L0472; P9016; Q4081